=== PATIENT | female | born 1930 | race Caucasian/White ===

== ENCOUNTER → 2016-12-02 | Outpatient (CLI) | payer OTHER, BC ==
[~2016-12-02] MED LIST: APPLCAP PO; ASCA500 PO; ASPEC325 PO; ASPI81TA28 PO; B-CO-25 PO; B-CO1CAP17 PO; BLAC1CAP4 PO; CALC1TAB10 PO; CHOL1000 PO; CYAN5000 PO; IBAN150T PO; LEVE250T PO; LEVO25TA5 PO; MAGN400T6 PO; MISCCAP8 PO; MULT-188 PO; MULT-614 PO; MULTTAB66 PO; OMEG1CAP71 PO; POLYSOL4 OP; POTACAP PO; RXC5 PO; SACC250C11 PO
[2016-12-02 11:53] LABS: BASO % 0.6 %; BASO ABS # 0.04 K/uL (0-0.2); COMPLETE YES; HEMATOCRIT 41.4 % (37-47); IG% 0.1 %; LYMPH % 24.1 %; LYMPH ABS # 1.73 K/uL (1.2-3.4); MEAN CELL VOLUME 93.7 fL (80-100); MEAN CORPUSCULAR HEMOGLOBIN 31.7 pg (25-34); MEAN CORPUSCULAR HGB CONC 33.8 g/dl (32-36); MONO % 8.4 %; NEUT % 65.8 %; PLATELET COUNT 202 K/uL (130-400); RED BLOOD COUNT 4.42 M/uL (4.2-5.4); WHITE BLOOD COUNT 7.18 K/uL (4.8-10.8)
[2016-12-02 12:00] LABS: BLOOD UREA NITROGEN 12 mg/dl (7-18); BUN/CREATININE RATIO 18.6 (10-20); CALCIUM 9.3 mg/dl (8.5-10.1); CARBON DIOXIDE 34 mmol/L (21-32); CHLORIDE 104 mmol/L (98-107); CREATININE 0.65 mg/dl (0.60-1.20); GLUCOSE 81 mg/dl (70-99); SODIUM 141 mmol/L (136-145)
[2016-12-02 12:07] LABS: INR 0.9 (0.9-1.1); PROTHROMBIN TIME (PATIENT) 10.1 SECONDS (9.0-12.0)
== END | disposition home or self-care (01) ==
LOC: C.LAB 10:44
PROVIDERS: ATTEND Orthopaedic Surgery
DX: Z01.812 Encounter for preprocedural laboratory examination (principal); M16.11 Unilateral primary osteoarthritis, right hip

== ENCOUNTER 2016-12-11 07:24 | Inpatient (IN) | payer OTHER, BC ==
[2016-10-16 08:20] VITALS: BMI 27.0
[2016-10-16 08:40] VITALS: BMI 27.0
--- NOTE | 2016-10-16 09:08 | PAT Medication Instructions ---
Service Date Oct 16, 2016. Current Home Medication List Ascorbic Acid (Vitamin C), 1,000 MG PEG QAM Aspirin (Aspirin Ec), 81 MG PO QPM Calcium Carbonate-Cholecalcife (Calcium 1000 + D), 1 TAB PO QAM Cholecalciferol (Vitamin D3), 1 TAB PO QAM Cyanocobalamin (Vitamin B-12), 12 TAB PO QAM Fish Oil ([place]-3), 1 CAP PO QAM Ibandronate Sodium (Boniva), 150 MG PO MONTHLY Levetiracetam (Keppra), 250 MG PO QAM Levetiracetam (Keppra), 500 MG PO QPM Levothyroxine Sodium (Levothyroxine Sodium), 1 TAB PO QAM Magnesium Oxide (Mag-Ox), 400 MG PO QAM Multiple Vitamins W/ Minerals (Centrum Silver Ultra Wome), 1 TAB PO QAM Multiple Vitamins W/ Minerals (Ocuvite), 1 TAB PO QAM Phytonadione (Vitamin K), 1 TAB PO QAM Potassium Gluconate (K-99), 1 TAB PO QAM Saccharomyces Boulardii (Probiotic), 1 TAB PO QAM Vitamin B Cmplx/Vitc/Folic Ac (Nephrocaps), 1 CAP PO QAM Medication Instructions For Your Scheduled Surgery - Continue as directed: Ibandronate Sodium (Boniva), 150 MG PO MONTHLY - Hold the following medications 2 weeks prior to surgery: Fish Oil ([place]-3), 1 CAP PO QAM - Hold the following medications the morning of surgery: Calcium Carbonate-Cholecalcife (Calcium 1000 + D), 1 TAB PO QAM Ascorbic Acid (Vitamin C), 1,000 MG PO QAM Cholecalciferol (Vitamin D3), 1 TAB PO QAM Cyanocobalamin (Vitamin B-12), 12 TAB PO QAM Saccharomyces Boulardii (Probiotic), 1 TAB PO QAM Vitamin B Cmplx/Vitc/Folic Ac (Nephrocaps), 1 CAP PO QAM Magnesium Oxide (Mag-Ox), 400 MG PO QAM Multiple Vitamins W/ Minerals (Centrum Silver Ultra Wome), 1 TAB PO QAM Multiple Vitamins W/ Minerals (Ocuvite), 1 TAB PO QAM Phytonadione (Vitamin K), 1 TAB PO QAM Potassium Gluconate (K-99), 1 TAB PO QAM - Take the following medications the morning of surgery with a sip of water OTHERWISE NOTHING TO EAT OR DRINK AFTER MIDNIGHT: Levetiracetam (Keppra), 250 MG PO QAM Levothyroxine Sodium (Levothyroxine Sodium), 1 TAB PO QAM - Take the following medications as scheduled the night before surgery: Aspirin (Aspirin Ec), 81 MG PO QPM Levetiracetam (Keppra), 500 MG PO QPM If you have any questions please call us at [phone] or [phone] or [phone]
--- NOTE | 2016-10-16 09:22 | PAT Medication Instructions ---
Service Date Oct 16, 2016. Current Home Medication List Apple Cider Vinegar (Apple Cider Vinegar), 1 TAB PO QAM Ascorbic Acid (Vitamin C), 1,000 MG PO QAM Aspirin (Aspirin Ec), 81 MG PO QPM B-Complex W/ Folic Acid (Super B Complex Maxi), 1 TAB PO QAM Black Pepper-Turmeric (Turmeric Curcumin Complex 500-3 mg), 1 TAB PO QAM Calcium Carbonate-Cholecalcife (Calcium 1000 + D), 1 TAB PO QAM Cholecalciferol (Vitamin D3), 2,000 UNITS PO QAM Cyanocobalamin (Vitamin B-12), 12 TAB PO QAM Ibandronate Sodium (Boniva), 150 MG PO MONTHLY Levetiracetam (Keppra), 250 MG PO QAM Levetiracetam (Keppra), 500 MG PO QPM Levothyroxine Sodium (Levothyroxine Sodium), 1 TAB PO QAM Magnesium Oxide (Mag-Ox), 400 MG PO QAM Misc Natural Products (Tart Guthrie Advanced), 1 TAB PO QAM Multiple Vitamins W/ Minerals (Centrum Silver Ultra Wome), 1 TAB PO QAM Multiple Vitamins W/ Minerals (Ocuvite), 1 TAB PO QAM Multiple Vitamins W/ Minerals (I-Gabo), 1 TAB PO QAM [place] 3 Fatty Acids-Germfask 6 Fa ([place] 3-6-9 Complex), 1 TAB PO QAM Potassium Gluconate (K-99), 1 TAB PO QAM Saccharomyces Boulardii (Probiotic), 1 TAB PO QAM Vitamin B Cmplx/Vitc/Folic Ac (Nephrocaps), 1 CAP PO QAM Medication Instructions For Your Scheduled Surgery - Hold the following medications 2 weeks prior to surgery: Apple Cider Vinegar (Apple Cider Vinegar), 1 TAB PO QAM Black Pepper-Turmeric (Turmeric Curcumin Complex 500-3 mg), 1 TAB PO QAM [place] 3 Fatty Acids-Germfask 6 Fa ([place] 3-6-9 Complex), 1 TAB PO QAM Misc Natural Products (Tart Guthrie Advanced), 1 TAB PO QAM - Hold the following medications the morning of surgery: Ascorbic Acid (Vitamin C), 1,000 MG PO QAM Calcium Carbonate-Cholecalcife (Calcium 1000 + D), 1 TAB PO QAM Cholecalciferol (Vitamin D3), 2,000 UNITS PO QAM Cyanocobalamin (Vitamin B-12), 12 TAB PO QAM B-Complex W/ Folic Acid (Super B Complex Maxi), 1 TAB PO QAM Magnesium Oxide (Mag-Ox), 400 MG PO QAM Multiple Vitamins W/ Minerals (Centrum Silver Ultra Wome), 1 TAB PO QAM Multiple Vitamins W/ Minerals (Ocuvite), 1 TAB PO QAM Multiple Vitamins W/ Minerals (I-Gabo), 1 TAB PO QAM Potassium Gluconate (K-99), 1 TAB PO QAM Saccharomyces Boulardii (Probiotic), 1 TAB PO QAM Vitamin B Cmplx/Vitc/Folic Ac (Nephrocaps), 1 CAP PO QAM - Take the following medications the morning of surgery with a sip of water OTHERWISE NOTHING TO EAT OR DRINK AFTER MIDNIGHT: Levetiracetam (Keppra), 250 MG PO QAM Levothyroxine Sodium (Levothyroxine Sodium), 1 TAB PO QAM - Take the following medications as scheduled the night before surgery: Aspirin (Aspirin Ec), 81 MG PO QPM Levetiracetam (Keppra), 500 MG PO QPM If you have any questions please call us at [phone] or [phone] or [phone]
[2016-10-16 10:19] LABS: PROTHROMBIN TIME (PATIENT) 10.5 SECONDS (9.0-12.0)
--- NOTE | 2016-10-16 10:28 | DIAGNOSTIC IMAGING REPORT ---
CHEST PREADMISSION(PA/LAT) CLINICAL HISTORY: Preoperative evaluation. COMPARISON STUDY: No previous studies for comparison. FINDINGS: Lung volumes are normal. There is no pneumothorax or pleural effusion. There is no evidence of pulmonary edema. A few calcific densities projecting over the left upper lung could reflect calcified pleural plaques. These are benign. Cardiac size is normal. Mediastinal contours are normal. IMPRESSION: No acute cardiopulmonary findings. Electronically signed by: Endy Vogt M.D. 10/16/2016 10:27 AM Dictated Date/Time: 10/16/2016 10:26 AM
[2016-10-16 11:15] LABS: URINE APPEARANCE CLOUDY (CLEAR); URINE BILIRUBIN NEG (NEG); URINE COLOR DK YELLOW; URINE NITRITE POS (NEG); URINE SPECIFIC GRAVITY 1.017 (1.000-1.030); UROBILINOGEN NEG (NEG)
[2016-10-16 11:32] LABS: MANUAL MICROSCOPIC REQUIRED? NO; REVIEW REQ? NO
--- NOTE | 2016-11-05 09:12 | HISTORY & PHYSICAL EXAMINATION ---
DATE OF ADMISSION: 11/27/2016 CHIEF COMPLAINT: Primary osteoarthritis of the right hip. HISTORY OF PRESENT ILLNESS: Denise is a very pleasant 86-year-old female who has been dealing with chronic right hip pain. X-rays and radiographs were diagnostic for primary osteoarthritis of the right hip. After failing extensive conservative treatment, she elected to proceed with a right total hip arthroplasty. PAST MEDICAL HISTORY: Significant for breast cancer status post lumpectomy, unspecified seizure disorder, osteopenia, mild obesity and hypothyroidism. PAST SURGICAL HISTORY: Significant for breast lumpectomy, right total knee arthroplasty in 1994, left total knee arthroplasty in 1998, right wrist surgery for fracture. ALLERGIES: None. MEDICATIONS: Include Keppra 250 mg in the morning and 500 mg in the evening and Synthroid 25 mg daily. FAMILY HISTORY: Noncontributory. SOCIAL HISTORY: She is , lives by herself, has 2 children. REVIEW OF SYSTEMS: She complains of right hip pain. All other pertinent review of systems are negative. PHYSICAL EXAMINATION: GENERAL: She is awake, alert and oriented x3. She is in no apparent distress. She is very pleasant. HEAD, EYES, EARS, NOSE, AND THROAT: Pupils are equal, round and reactive to light. Extraocular motion intact. Oral mucosa is pink and moist. HEART: Regular rate per radial pulse. LUNGS: Mary symmetrically bilaterally with no audible breath sounds. ABDOMEN: Soft, nontender, nondistended. MUSCULOSKELETAL: On physical examination of her hip, she does walk with an antalgic gait. Her leg lengths are essentially equal. She has 90 degrees of flexion with very limited internal and external rotation with severe pain at end range of motion mostly with forced internal rotation of the hip. She is neurovascularly intact. X-rays of the pelvis show advanced osteoarthritis of both hips with the right being worse than the left. There is a very slight coxa vara. There is joint space narrowing and osteophyte formation. IMPRESSION: Advanced osteoarthritis of the right hip. PLAN: Will proceed with a Biomet anterior right total hip arthroplasty. Postoperatively, she will be started on aspirin 325 mg twice a day for DVT prophylaxis and kept for postoperative medical management.
[2016-12-08 13:03] VITALS: BMI 27.0
--- NOTE | 2016-12-10 18:47 | HISTORY & PHYSICAL EXAMINATION ---
DATE OF ADMISSION: 12/11/2016 HISTORY AND PHYSICAL ADMISSION NOTE CHIEF COMPLAINT: Primary osteoarthritis of the right hip. HISTORY OF PRESENT ILLNESS: Denise is a pleasant 86-year-old female who has been dealing with increasing chronic right hip pain. X-rays and clinical examination were diagnostic for primary osteoarthritis of the right hip. After failing years of conservative treatment, she elected to proceed with a right total hip arthroplasty. PAST MEDICAL HISTORY: Significant for breast cancer status post lumpectomy, osteoarthritis, seizure disorder, osteopenia, mild obesity and hypothyroidism. PAST SURGICAL HISTORY: Significant for a breast lumpectomy, total knee arthroplasty in 1994, left total knee arthroplasty in 1998 and right wrist surgery for fracture. ALLERGIES: None. MEDICATIONS: Include Keppra 250 mg in the morning and 500 mg in the evening and Synthroid 25 mcg daily. FAMILY HISTORY: Noncontributory. SOCIAL HISTORY: She is , lives by herself and has 2 children. REVIEW OF SYSTEMS: She complains of right hip pain. All other pertinent review of systems is negative. PHYSICAL EXAMINATION: GENERAL: She is awake, alert and oriented x3. She is in no apparent distress. She is very pleasant. HEENT: Pupils are equal, round and reactive to light. Extraocular motion intact. Oral mucosa is pink and moist. HEART: Regular rate per radial pulse. LUNGS: Mary symmetrically bilaterally with no audible breath sounds. ABDOMEN: Soft, nontender, nondistended. MUSCULOSKELETAL: On physical examination of her right hip, her leg lengths are essentially equal. She can flex to about 90 degrees, but has very limited internal and external rotation with severe pain in range of motion. She has a lot of pain in her groin. IMAGING DATA: X-rays from the office do show advanced osteoarthritis of the right hip. There is a slight coxa vara. She has a complete loss of joint space and osteophyte formation. IMPRESSION: Advanced osteoarthritis of the right hip. PLAN: Will proceed with an anterior right total hip arthroplasty using a Biomet taper lock stem. Postoperatively, she will be started on aspirin for DVT prophylaxis and kept in the hospital for postoperative medical management. KATHARINE
[~2016-12-11] VITALS: Ht 165.1 cm; Wt 74.5 kg
[2016-12-11] VITALS (9 sets, daily range): BP systolic 109–162; BP diastolic 61–73; PULSE 55–69; TEMP 34.7–36.8; O2SAT 95–100; Ht 165.1 cm; Wt 74.5 kg
[~2016-12-11 07:24] MED LIST changes: +ACETAMINOPHEN 500 MG TAB PO SCH; -ASPEC325 PO; +BUPIVACAINE 0.5 % 5 MG/1 ML PF 10ML VIAL ONE; +CEFAZOLIN 2000 MG/60 ML D5W 60 ML IV SCH; +FAMOTIDINE 20 MG TAB PO SCH; +GABAPENTIN 300 MG CAP PO SCH; +LACTATED RINGER'S 1000ML 1,000 ML IV SCH; +LACTATED RINGER'S 1000ML 500 ML IV ONE; +LACTATED RINGER'S 1000ML IV SCH; -POLYSOL4 OP; +ROPIVACAINE 5MG/ML 30 ML 150 MG, BUPIVACAINE/EPINEPHR 0.5% MPF 30 ML, KETOROLAC TROMETH... INFIL SCH; -RXC5 PO
--- NOTE | 2016-12-11 07:43 | History & Physical Bridge Note ---
H&P Re-Evaluation Bridge Note: I have examined the patient, reviewed the History & Physical and in the interval since the performance of the History & Physical I have noted the following changes of clinical significance: No changes noted
[2016-12-11] MEDS ORDERED: POLYSOL4 OP (08:21)
[2016-12-11] MEDS ORDERED: EpHEDrine SULFATE INJ 50 MG/ML AMP IV PRN (09:00)
[2016-12-11] MEDS ORDERED: ONDANSETRON INJ 2 MG/ML 2 ML VIAL IV PRN ×2 (09:00→12:45)
[2016-12-11] MEDS ORDERED: FENTANYL CITRATE INJ 50 MCG/1 ML 2 ML VIAL IV PRN (09:00)
[2016-12-11] MEDS ORDERED: ATROPINE SULFATE 0.1 MG/ML 5ML SYR IV PRN (09:00)
[2016-12-11] MEDS ORDERED: BACITRACIN 50000 UNIT VIAL ONE (09:09)
[2016-12-11] MEDS ORDERED: ORTHO JOINT ANESTHETIC ONE (09:09)
[2016-12-11] MEDS: TRANEXAMIC ACID INJ 1,000 MG in SODIUM CHLORIDE 0.9% 100ML 100 ML IV SCH ×2 (10:10→14:31)
[2016-12-11] MEDS ORDERED: MIDAZOLAM HCL 1 MG/ML 2ML VIAL ONE ×2 (10:34)
[2016-12-11] MEDS ORDERED: FENTANYL CITRATE INJ 50 MCG/1 ML 2 ML VIAL ONE (10:34)
[2016-12-11] MEDS ORDERED: LIDOCAINE HCL 2% 2 ML VIAL (20MG/ML) ONE (12:30)
[2016-12-11] MEDS ORDERED: PHENYLEPHRINE 100MCG/ML 5ML SYR ONE (12:30)
[2016-12-11] MEDS ORDERED: PROPOFOL IV EMULSION 10 MG/ML 20 ML VIAL IV ONE (12:30)
[2016-12-11] MEDS ORDERED: EpHEDrine SULFATE 50MG/5ML SYR ONE (12:30)
--- NOTE | 2016-12-11 12:30 | DIAGNOSTIC IMAGING REPORT ---
INTRAOPERATIVE RIGHT HIP 2 VIEWS CLINICAL HISTORY: Right hip arthroplasty COMPARISON STUDY: No previous studies for comparison. FINDINGS: 36 seconds of fluoroscopic time was utilized. 2 intraoperative fluoroscopic spot images are provided for interpretation. These demonstrate a total right hip arthroplasty. IMPRESSION: Intraoperative radiographs demonstrating a total right hip arthroplasty. Electronically signed by: Hadley Hamilton M.D. 12/11/2016 12:28 PM Dictated Date/Time: 12/11/2016 12:27 PM
--- NOTE | 2016-12-11 12:36 | [facility] Post Operative Brief Note ---
Immediate Operative Summary Operative Date Dec 11, 2016. Pre-Operative Diagnosis Advanced osteoarthritis of the right hip Post-Operative Diagnosis Same as preoperative diagnosis Procedure(s) Performed Right total hip arthroplasty, uncemented, direct anterior approach Surgeon Dr. Nunes Data Support Analyst Surgeon(s) Micah Thompson PA-C Estimated Blood Loss 250 ml Findings as above Specimens A. Right femoral head Disposition Recovery Room / PACU
[2016-12-11] MEDS ORDERED: MAGNESIUM HYDROXIDE SUSP 30 ML UDC PO PRN (12:45)
[2016-12-11] MEDS ORDERED: SOD PHOSPHATE/SOD BIPHOSPHATE ENEMA 132 ML BTL PR PRN (12:45)
[2016-12-11] MEDS ORDERED: MoRPHine SULFATE 2 MG/ML CARP IV PRN (12:45)
[2016-12-11] MEDS ORDERED: METOCLOPRAMIDE HCL INJ 5 MG/ML 2 ML VIAL IV PRN (12:45)
[2016-12-11] MEDS ORDERED: BISACODYL 10 MG SUPP PR PRN (12:45)
[2016-12-11] MEDS ORDERED: OXYCODONE HCL IR 5 MG TAB (IMMEDIATE RELEASE) PO PRN (12:45)
[2016-12-11] MEDS ORDERED: SILVER SULFADIAZINE 1% CR 50 GM JAR EXT PRN (12:45)
--- NOTE | 2016-12-11 13:49 | Anesthesiology Progress Note ---
Anesthesia Post Op Note Date & Time Dec 11, 2016 at 13:49 Vital Signs Pain Intensity: 0 Vital Signs Past 12 Hours Date Time Temp Pulse Resp B/P (MAP) Pulse Ox O2 Delivery O2 Flow Rate FiO2 12/11/16 13:25 36.3 59 16 121/57 100 Nasal Cannula 2 12/11/16 13:15 55 16 124/56 100 Nasal Cannula 2 12/11/16 13:05 58 16 128/52 100 Oxymask 10 12/11/16 12:55 36.3 61 16 124/82 100 Oxymask 10 12/11/16 08:32 36.8 69 18 162/67 99 Room Air Notes Mental Status: alert / awake / arousable, participated in evaluation Pt Amnestic to Procedure: Yes Nausea / Vomiting: adequately controlled Pain: adequately controlled Airway Patency, RR, SpO2: stable & adequate BP & HR: stable & adequate Hydration State: stable & adequate Neuraxial Anesthesia: was administered, sensory block is resolving Anesthetic Complications: no major complications apparent
--- NOTE | 2016-12-11 14:22 | [facility] Post Operative Brief Note ---
Immediate Operative Summary Operative Date Dec 11, 2016. Pre-Operative Diagnosis Advanced osteoarthritis of the right hip Post-Operative Diagnosis Same as preoperative diagnosis Procedure(s) Performed Right total hip arthroplasty, uncemented, direct anterior approach Surgeon Dr. Nunes Commercial Account Executive Surgeon(s) Micah Thompson PA-C Estimated Blood Loss 250 ml Findings as above Specimens A. Right femoral head Complication(s) None Disposition Recovery Room / PACU
[2016-12-11] MEDS: SODIUM CHLORIDE 0.9% 1000ML 1,000 ML IV SCH (14:32)
--- NOTE | 2016-12-11 14:56 | OPERATIVE REPORT ---
DATE OF OPERATION: 12/11/2016 PREOPERATIVE DIAGNOSIS: Primary osteoarthritis of the right hip. POSTOPERATIVE DIAGNOSIS: Same. PROCEDURE: Right total hip arthroplasty. SURGEON: Dr. Luis Nunes. IMPORT COORDINATOR: Koby Thompson PA-C, whose assistance was necessary for retraction and closure. ANESTHESIA: Spinal. COMPLICATIONS: None. CONDITION: Stable to PACU. IMPLANTS USED: I used a Biomet Taperloc total hip arthroplasty system with a size 16 high offset pressfit Taperloc stem, a size 36 ceramic head with a -6 neck and a 50 mm G7 cup with a single 25 mm screw and a 36 mm neutral E-poly liner. INDICATIONS: Denise is a pleasant 86-year-old female who presented to my office with chronic right groin and hip pain. X-rays and clinical examination were diagnostic for primary osteoarthritis of the right hip. After failing conservative treatment, she elected to undergo a right total hip arthroplasty. OPERATION AND FINDINGS: On 12/11/2016 she arrived at [facility] for the above procedure. She was seen in the preoperative holding area and the operative extremity was identified and signed. She was given a preoperative antibiotic and a spinal anesthetic. She was taken back to the operating room, laid on the table in supine position and put under basic sedation. The right leg was brought out to Purist leg positioner and the right hip was prepped and draped in sterile fashion. Time-out was done and the patient and operative extremity was properly identified. An anterior approach was used. Dissection was taken down through the fascia and the tensor was retracted laterally and the rectus was retracted medially. The circumflex vessels were then ligated and the capsule was exposed. The capsule was then incised and tagged for later repair. The femoral neck was then resected and the acetabulum was exposed. Time was spent doing a complete circumferential labral release. Sequential reaming of the acetabulum up to a size 49 reamer was done. The reaming was done under fluoroscopy for appropriate version. The 50 mm G7 cup was then impacted into place. A single 25 mm screw was placed. A 36 mm neutral E-poly liner was then snapped into place. The proximal femur was then exposed. Sequential broaching up to a size 16 broach was used. A high offset neck and a -6 36 mm head was then trialed. The hip was reduced. I was happy with the alignment and the size of the complements. The hip was then dislocated and the trials were removed. The final size 16 high offset Taperloc stem was then impacted into place. A 36 mm ceramic head with -6 neck was then placed on top of the femoral stem and the hip was reduced. Final fluoroscopic images showed anatomic alignment of the hip. The surrounding soft tissues were injected with 100 mL of an orthopedic pain control cocktail. The surrounding soft tissues were then irrigated with 3 liters of normal saline solution with bacitracin. The capsule was then closed with #1 Vicryl suture. A drain was placed. Fascia was closed with #1 PDS suture. Skin was closed with 2-0 Vicryl, 3-0 V-Loc suture and joce. She was then placed in a soft compressive dressing and taken to the postanesthesia care unit in stable condition. She tolerated the procedure well. I attest to the content of the Intraoperative Record and any orders documented therein. Any exception s are noted below.
[2016-12-11] MEDS: ACETAMINOPHEN IV 1,000 MG in EMPTY BAG 0 ML IV SCH ×2 (15:05→22:28)
--- NOTE | 2016-12-11 16:02 | DIAGNOSTIC IMAGING REPORT ---
R PELVIS/UNILATERAL HIP 1 VIEW CLINICAL HISTORY: IN PACU - A/P PELVIS and LATERAL HIP INCLUDING ALL OF IMPLANT COMPARISON: None. DISCUSSION: Total right hip prosthetic in good position. Good contact between prosthetic and underlying bone. Surgical drains are present. There is no evidence for soft tissue swelling. IMPRESSION: Anatomic alignment status post total right hip replacement The above report was generated using voice recognition software. It may contain grammatical, syntax or spelling errors. Electronically signed by: Usman Argueta M.D. 12/11/2016 4:00 PM Dictated Date/Time: 12/11/2016 4:00 PM
[2016-12-11] MEDS: KETOROLAC TROMETHAMINE 15 MG/ML VIAL IV. SCH ×2 (16:19→22:18)
[2016-12-11] MEDS: CEFAZOLIN IV 1,000 MG in DEXTROSE 5% 50ML 50 ML IV SCH (18:18)
[2016-12-11] MEDS: LEVETIRACETAM 500 MG TAB PO SCH (19:20)
[2016-12-11] MEDS: DOCUSATE SODIUM 100 MG CAP PO SCH (21:14)
[2016-12-11] MEDS: ARTIFICIAL TEARS OP SOLN OP SCH ×2 (21:14)
[2016-12-11] MEDS: ASPIRIN 325 MG ECTAB PO SCH (21:15)
[2016-12-11] MEDS: SENNA 8.6 MG TAB PO SCH (21:16)
[2016-12-12] MEDS: CEFAZOLIN IV 1,000 MG in DEXTROSE 5% 50ML 50 ML IV SCH (02:16)
[2016-12-12 03:41] VITALS: BP 109/64; PULSE 66; TEMP 36.6; O2SAT 96
[2016-12-12] MEDS: KETOROLAC TROMETHAMINE 15 MG/ML VIAL IV. SCH ×4 (03:42→21:41)
[2016-12-12] MEDS: LEVOTHYROXINE 25 MCG TAB PO SCH (06:05)
[2016-12-12] MEDS: ACETAMINOPHEN IV 1,000 MG in EMPTY BAG 0 ML IV SCH (06:06)
[2016-12-12 06:19] LABS: BASO % 0.2 %; BASO ABS # 0.02 K/uL (0-0.2); COMPLETE YES; EOS % 0.1 %; HEMATOCRIT 34.2 % (37-47); IG% 0.1 %; LYMPH % 13.3 %; LYMPH ABS # 1.32 K/uL (1.2-3.4); MEAN CELL VOLUME 91.2 fL (80-100); MEAN CORPUSCULAR HEMOGLOBIN 31.2 pg (25-34); MEAN CORPUSCULAR HGB CONC 34.2 g/dl (32-36); MEAN PLATELET VOLUME 9.9 fL (7.4-10.4); MONO % 7.7 %; NEUT % 78.6 %; PLATELET COUNT 137 K/uL (130-400); RED BLOOD COUNT 3.75 M/uL (4.2-5.4); WHITE BLOOD COUNT 9.94 K/uL (4.8-10.8)
[2016-12-12 06:47] LABS: CALCIUM 8.1 mg/dl (8.5-10.1); CREATININE 0.46 mg/dl (0.60-1.20); POTASSIUM 3.6 mmol/L (3.5-5.1)
[2016-12-12 08:05] VITALS: BP 106/61; PULSE 56; TEMP 37; O2SAT 95
[2016-12-12] MEDS: LEVETIRACETAM 250 MG TAB PO SCH ×2 (08:07→20:13)
[2016-12-12] MEDS: SODIUM CHLORIDE 0.9% 1000ML 1,000 ML IV SCH ×2 (08:30)
[2016-12-12] MEDS: CYANOCOBALAMIN 2,500 MCG SUBL TAB PO SCH (08:31)
[2016-12-12] MEDS: SACCHAROMYCES BOUL (FLORASTOR) 250 MG CAP PO SCH (08:31)
[2016-12-12] MEDS: ASCORBIC ACID 500 MG TAB PO SCH (08:31)
[2016-12-12] MEDS: MULTIVITAMIN TAB PO SCH (08:31)
[2016-12-12] MEDS: MAGNESIUM OXIDE 400 MG TAB PO SCH (08:31)
[2016-12-12] MEDS: NEPHROCAPS PO SCH (08:31)
[2016-12-12] MEDS: CALCIUM 600MG + VIT D 400 IU TAB PO SCH (08:31)
[2016-12-12] MEDS: DOCUSATE SODIUM 100 MG CAP PO SCH ×2 (08:31→20:17)
[2016-12-12] MEDS: ASPIRIN 325 MG ECTAB PO SCH ×2 (08:32→20:17)
[2016-12-12] MEDS: CHOLECALCIFEROL 1000 INTER.UNIT TAB PO SCH (08:32)
[2016-12-12] MEDS: PANTOprazole SOD 40 MG TAB PO SCH (08:32)
[2016-12-12] MEDS ORDERED: LEVETIRACETAM 250 MG TAB PO SCH (09:00)
[2016-12-12] MEDS ORDERED: [UNRECOGNIZED DRUG - OTHER] PO SCH (09:00)
--- NOTE | 2016-12-12 09:06 | PROGRESS NOTE ---
DATE: 12/12/2016 CHIEF COMPLAINT: Status post right total hip arthroplasty, postop day #1. PROGRESS: Denise was seen and examined at bedside today. Overall, she is doing extremely well. She said she really has no pain in her hip. She has been up and ambulating to the bathroom. She has no other complaints. PHYSICAL EXAMINATION: RIGHT HIP: The dressing is clean and dry and the drain is to suction. She can actively extend her knee. She has active dorsiflexion and plantarflexion of her right ankle. Sensation of her quad intact. LABORATORY DATA: She has an H&H today of 11.7 and 34.2. Her glucose is 102. She is voiding on her own and her vital signs are all stable. X-RAYS: Radiographs postoperatively of the right hip show the prosthesis to be in an anatomical alignment without any evidence of fracture, dislocation or loosening. IMPRESSION: Status post right total hip arthroplasty, postop day #1. PLAN: At this point, she is doing as well as expected. She will be seen by therapy today for ambulation. She is on aspirin 325 mg twice a day for DVT prophylaxis. Tomorrow morning, the nursing staff can change the dressing and pull the drain and we are awaiting discharge to [facility].
[2016-12-12 11:13] VITALS: BP 134/67; PULSE 57; TEMP 36.6; O2SAT 98
[2016-12-12] MEDS ORDERED: INFLUENZA ADMINISTRATION CHARGE ONE (13:15)
[2016-12-12] MEDS ORDERED: INFLUENZA VACCINE HIGH DOSE 65+ 0.5 ML SYR IM. ONE (13:15)
[2016-12-12 15:30] VITALS: BP 144/74; PULSE 60; TEMP 36.7; O2SAT 94
[2016-12-12] MEDS: LEVETIRACETAM 500 MG TAB PO SCH (20:14)
[2016-12-12] MEDS: ARTIFICIAL TEARS OP SOLN OP SCH ×2 (20:17)
[2016-12-12] MEDS: SENNA 8.6 MG TAB PO SCH (20:29)
[2016-12-12] MEDS: ACETAMINOPHEN 500 MG TAB PO SCH (21:40)
[2016-12-12 23:07] VITALS: BP 108/62; PULSE 67; TEMP 37.2; O2SAT 96
[2016-12-13] MEDS: KETOROLAC TROMETHAMINE 15 MG/ML VIAL IV. SCH ×2 (03:46→10:31)
[2016-12-13] MEDS: ACETAMINOPHEN 500 MG TAB PO SCH ×2 (06:02→14:04)
[2016-12-13] MEDS: LEVOTHYROXINE 25 MCG TAB PO SCH (06:02)
[2016-12-13 06:18] VITALS: BP 113/68; PULSE 65; TEMP 36.6; O2SAT 96
[2016-12-13] MEDS: ASCORBIC ACID 500 MG TAB PO SCH (07:40)
[2016-12-13] MEDS: NEPHROCAPS PO SCH (07:40)
[2016-12-13] MEDS: CYANOCOBALAMIN 2,500 MCG SUBL TAB PO SCH (07:40)
[2016-12-13] MEDS: MULTIVITAMIN TAB PO SCH (07:40)
[2016-12-13] MEDS: PANTOprazole SOD 40 MG TAB PO SCH (07:40)
[2016-12-13] MEDS: SACCHAROMYCES BOUL (FLORASTOR) 250 MG CAP PO SCH (07:41)
[2016-12-13] MEDS: MAGNESIUM OXIDE 400 MG TAB PO SCH (07:43)
[2016-12-13] MEDS: CHOLECALCIFEROL 1000 INTER.UNIT TAB PO SCH (07:43)
[2016-12-13] MEDS: CALCIUM 600MG + VIT D 400 IU TAB PO SCH (07:43)
[2016-12-13] MEDS: LEVETIRACETAM 250 MG TAB PO SCH (07:43)
[2016-12-13] MEDS: ASPIRIN 325 MG ECTAB PO SCH (08:42)
[2016-12-13] MEDS: DOCUSATE SODIUM 100 MG CAP PO SCH (08:42)
[2016-12-13] MEDS ORDERED: RXC5 PO (09:05)
[2016-12-13] MEDS ORDERED: ASPEC325 PO (09:05)
--- NOTE | 2016-12-13 09:06 | Discharge Instructions ---
Discharge Instructions Date of Service Dec 13, 2016. Admission Reason for Admission: Right Hip Degenerative Joint Disease Discharge Discharge Diagnosis / Problem: Right Total Hip Discharge Goals Goal(s): Decrease discomfort, Improve function Activity Recommendations Activity Limitations: as noted below . Instructions / Follow-Up Instructions / Follow-Up Activity and Therapy Recommendations: * If you are using [facility] then Physical Therapy will be provided until they feel you are ready to start Outpatient Physical Therapy. If you are not using a Home Health agency then Outpatient Physical Therapy should start about 3-5 days from your day of surgery. Therapy will last about 3-6 weeks * You were shown a series of exercises in the hospital. Do these exercises three times each day including the exercises you were shown in physical therapy. * Get up and walk several times each day.~ For the first four weeks, try not to stand or walk for more than one hour at a time. If you do stand or walk for more than one hour, you will not hurt anything, but your leg will likely swell.~ ~ * As you feel comfortable, you may change from the walker or crutches to a cane and~then to independent walking. Medications: * Narcotic You will likely be sent home from the hospital with a prescription for the narcotic pain medication that worked best throughout your stay. * Aspirin Most patients will be required to take Aspirin 325mg twice a day for 6 weeks after surgery. This is obtained [id number] and a prescription is not necessary. * Other medications may be prescribed for specific circumstances. If you have any questions, please call the office at . * Resume previous home medications unless otherwise instructed TEDs/Elastic Stockings: The white elastic stockings help limit swelling and prevent blood clots from forming in your legs. The more you wear them, the more they work. Wear them for six weeks. Showering: You may shower 5 days from the day of surgery. Let the soapy shower water run over the joce. Do not scrub or soak the the incision. Things To Watch For: * Drainage from the incision site that occurs more than one week after your surgery. * Increased redness at the incision site. * Fever above 102 degrees Fahrenheit. * Unusual chest pain or shortness of breath. * Call [facility] at with any of the above problems Follow-Up Visit: Follow-up with Dr. Nunes 2-3 weeks after your day of surgery. An appointment was probably scheduled when you signed-up for surgery in the office. If you have any questions call Office Instructions: More detailed instructions as well as Frequently Asked Questions were provided in a folder by our office when you signed-up for surgery. Please review these instructions when you get home. If you have any further questions or concerns, please feel free to call the office at [phone] Current Hospital Diet Patient's current hospital diet: Regular Diet Discharge Diet Recommended Diet: Regular Diet Procedures Procedures Performed: Right total hip arthroplasty, uncemented, direct anterior approach Pending Studies Studies pending at discharge: no Medical Emergencies . Who to Call and When: Medical Emergencies: If at any time you feel your situation is an emergency, please call 911 immediately. . Non-Emergent Contact Non-Emergency issues call your: Surgeon Call Non-Emergent contact if: wound has increased drainage, wound has increased redness . "Provider Documentation" section prepared by Luis Nunes. . VTE Core Measure Inpt VTE Proph given/why not?: Other Anticoagulation (Aspirin 325 twice a day for 6 weeks)
--- NOTE | 2016-12-13 09:32 | PROGRESS NOTE ---
DATE: 12/13/2016 CHIEF COMPLAINT: Status post right total hip arthroplasty, postop day #2. PROGRESS: Denise was seen and examined at bedside today. Overall, she is doing very well. She has very little pain in the right hip. She is ambulating well with physical therapy and has no complaints. PHYSICAL EXAMINATION: RIGHT HIP: The dressing has been changed and the drain has been pulled. She has active extension at the knee. Active dorsiflexion and plantarflexion of the right ankle. Sensation is intact throughout and her leg lengths are essentially equal. IMPRESSION: Status post right total hip arthroplasty, postop day #2. PLAN: At this point, she is doing very well and happy with her progress. She is working well with physical therapy. She is on aspirin 325 mg twice a day. She lives alone and we are waiting discharge to [facility] possibly later today.
[2016-12-13 11:28] VITALS: BP 113/68; PULSE 65; TEMP 36.6; O2SAT 96
--- NOTE | 2016-12-13 12:26 | DISCHARGE SUMMARY ---
DISCHARGE DIAGNOSIS: Primary osteoarthritis of the right hip. PROCEDURE: Right total hip arthroplasty done on 12/11/[address] Luis Nunes. DISCHARGE INSTRUCTIONS: 1. Aspirin 325 mg twice a day for DVT prophylaxis. 2. Oxycodone 5-10 mg every 4 hours as needed for pain. 3. Keppra 250 mg in the morning. 4. Keppra 500 mg in the evening. 5. Synthroid 25 mcg daily. 6. Continue all over the counter vitamins and supplements. 7. Follow up with Dr. Nunes in 2 weeks. 8. Call the office of Dr. Nunes with any questions or concerns. HOSPITAL COURSE: Denise is an 86-year-old female who presented to my office with complaints of chronic right hip pain. X-rays and clinical examination were diagnostic for primary osteoarthritis of the right hip. After failing extensive conservative treatment, she elected to undergo a right total hip arthroplasty. On 12/11/2016, she arrived at [facility] and underwent a right hip replacement without complications. She had a spinal anesthetic. Postoperatively, she was started on aspirin 325 mg twice a day and discharged to general orthopedic floor. Overall, her hospital course was uneventful. On postop day #1, her H&H was stable at 11.7 and 34.2. She was able to ambulate well with physical therapy and her pain was well controlled. On postop day #2, she continued to do well. The dressing was changed, the drain was pulled and she worked well with physical therapy. She was set up for discharge to [facility] with the above instructions.
[2016-12-13 15:15] VITALS: BP 108/66; PULSE 62; TEMP 36.5; O2SAT 95
== END 2016-12-13 15:55 | DRG 470 ==
LOC: C.ACU 07:24 → C.3E 09:00 → ENRESERV 13:27
PROVIDERS: ADMIT Orthopaedic Surgery; ATTEND Orthopaedic Surgery
PROC: 0SR904A Replacement of Right Hip Joint with Ceramic on Polyethylene Synthetic Substitute, Uncemented, Open Approach (ICD-10-PCS; principal; 2016-12-11 10:10)
DX: M16.11 Unilateral primary osteoarthritis, right hip (principal); G40.909 Epilepsy, unspecified, not intractable, without status epilepticus; E03.9 Hypothyroidism, unspecified; Z85.3 Personal history of malignant neoplasm of breast; Z96.653 Presence of artificial knee joint, bilateral; Z79.82 Long term (current) use of aspirin; Z79.899 Other long term (current) drug therapy

== ENCOUNTER → 2017-02-02 | Outpatient (CLI) | payer OTHER, BC ==
[~2017-02-02] MED LIST changes: -ACETAMINOPHEN 500 MG TAB PO SCH; -APPLCAP PO; -BLAC1CAP4 PO; -BUPIVACAINE 0.5 % 5 MG/1 ML PF 10ML VIAL ONE; -CEFAZOLIN 2000 MG/60 ML D5W 60 ML IV SCH; -FAMOTIDINE 20 MG TAB PO SCH; -GABAPENTIN 300 MG CAP PO SCH; -LACTATED RINGER'S 1000ML 1,000 ML IV SCH; -LACTATED RINGER'S 1000ML 500 ML IV ONE; -LACTATED RINGER'S 1000ML IV SCH; -MISCCAP8 PO; -OMEG1CAP71 PO; +POLYSOL4 OP; -ROPIVACAINE 5MG/ML 30 ML 150 MG, BUPIVACAINE/EPINEPHR 0.5% MPF 30 ML, KETOROLAC TROMETH... INFIL SCH
[2017-02-02 13:14] LABS: BASO % 0.6 %; BASO ABS # 0.04 K/uL (0-0.2); COMPLETE YES; IG% 0.1 %; LYMPH % 31.3 %; LYMPH ABS # 2.13 K/uL (1.2-3.4); MEAN CELL VOLUME 91.9 fL (80-100); MEAN CORPUSCULAR HEMOGLOBIN 29.5 pg (25-34); MEAN CORPUSCULAR HGB CONC 32.1 g/dl (32-36); MEAN PLATELET VOLUME 10.2 fL (7.4-10.4); MONO % 7.2 %; NEUT % 59.8 %; PLATELET COUNT 218 K/uL (130-400); RED BLOOD COUNT 4.57 M/uL (4.2-5.4)
[2017-02-02 13:20] LABS: PROTHROMBIN TIME (PATIENT) 10.2 SECONDS (9.0-12.0)
[2017-02-02 13:27] LABS: URINE APPEARANCE CLEAR (CLEAR); URINE BILIRUBIN NEG (NEG); URINE COLOR DK YELLOW; URINE NITRITE NEG (NEG); URINE PH 7.5 (4.5-7.5); URINE SPECIFIC GRAVITY 1.014 (1.000-1.030); UROBILINOGEN NEG (NEG)
[2017-02-02 13:33] LABS: BLOOD UREA NITROGEN 12 mg/dl (7-18); BUN/CREATININE RATIO 17.5 (10-20); CALCIUM 9.1 mg/dl (8.5-10.1); CARBON DIOXIDE 33 mmol/L (21-32); CHLORIDE 103 mmol/L (98-107); CREATININE 0.69 mg/dl (0.60-1.20); GLUCOSE 78 mg/dl (70-99); POTASSIUM 4.3 mmol/L (3.5-5.1); SODIUM 141 mmol/L (136-145)
[2017-02-02 13:33] LABS: MANUAL MICROSCOPIC REQUIRED? NO; REVIEW REQ? NO
== END | disposition home or self-care (01) ==
LOC: C.LABBC 11:10
PROVIDERS: ATTEND Orthopaedic Surgery
DX: M25.551 Pain in right hip (principal); Z01.812 Encounter for preprocedural laboratory examination

== ENCOUNTER 2017-02-19 05:00 | Inpatient (IN) | payer OTHER, BC ==
[2017-01-26 16:34] VITALS: BMI 27.0
--- NOTE | 2017-02-18 17:45 | HISTORY & PHYSICAL EXAMINATION ---
DATE OF ADMISSION: 02/19/2017 CHIEF COMPLAINT: Primary osteoarthritis of the left hip. HISTORY OF PRESENT ILLNESS: Denise is a pleasant 86-year-old female who I just did a right total hip arthroplasty on about 10 weeks ago. She has done very well with that, but unfortunately she is having a lot of left hip pain. X-rays and clinical examination were diagnostic for primary osteoarthritis of the left hip. After failing years of conservative treatment, she elected to proceed with a left total hip arthroplasty. PAST MEDICAL HISTORY: Breast cancer status post lumpectomy, osteoarthritis, seizure disorder, osteopenia, mild obesity and hypothyroidism. PAST SURGICAL HISTORY: Significant for breast lumpectomy, total knee arthroplasty in 1994, left total knee arthroplasty in 1998 and a right wrist surgery for fracture and a right total hip arthroplasty in November 2016. ALLERGIES: None. MEDICATIONS: Keppra 250 mg in the morning and 500 mg in the evening and Synthroid 25 mcg daily. FAMILY HISTORY: Noncontributory. SOCIAL HISTORY: She is , lives by herself, has 2 kids. REVIEW OF SYSTEMS: She complains of left hip pain. All other pertinent review of systems are negative. PHYSICAL EXAMINATION: GENERAL: She is awake, alert, oriented x3. She is in no apparent distress. She is very pleasant. HEENT: Pupils are equal, round and reactive to light. Extraocular motion intact. Oral mucosa is pink and moist. HEART: Regular rate per radial pulse. LUNGS: Mary symmetrically bilaterally with no audible breath sounds. ABDOMEN: Soft, nontender, nondistended. MUSCULOSKELETAL: On physical examination of her left hip, her leg lengths are essentially equal. She can flex to 90 degrees but has very limited internal and external rotation with severe pain in end range of motion. She has a lot of pain in her groin. X-rays of the hip and pelvis do show advanced osteoarthritis of the left hip. There is a well-placed right total hip arthroplasty. IMPRESSION: Advanced osteoarthritis of the left hip. PLAN: Will proceed with an anterior left total hip arthroplasty using a Biomet Taperloc stem. Postoperatively, she will be started on aspirin for DVT prophylaxis and kept in the hospital, likely for 2 midnights for postoperative medical management.
[~2017-02-19] VITALS: Ht 165.1 cm; Wt 74.5 kg
[2017-02-19] VITALS (9 sets, daily range): BP systolic 101–159; BP diastolic 53–68; PULSE 52–71; TEMP 36.2–36.7; O2SAT 52–100; Ht 165.1 cm; Wt 74.5 kg
[2017-02-19] MEDS ORDERED: GABAPENTIN 300 MG CAP PO SCH (06:00)
[2017-02-19] MEDS ORDERED: LACTATED RINGER'S 1000ML 1,000 ML IV SCH (06:00)
[2017-02-19] MEDS ORDERED: CEFAZOLIN 2000MG IV PUSH 10 ML IV SCH (06:00)
[2017-02-19] MEDS ORDERED: LACTATED RINGER'S 1000ML IV SCH (06:00)
[2017-02-19] MEDS ORDERED: ROPIVACAINE 5MG/ML 30 ML 150 MG, BUPIVACAINE 0.5% MPF INJ 30 ML, EpINEphrine HCL INJ 0.... INFIL SCH ×8 (06:00)
[2017-02-19] MEDS ORDERED: ACETAMINOPHEN 500 MG TAB PO SCH (06:00)
[2017-02-19] MEDS ORDERED: FAMOTIDINE 20 MG TAB PO SCH (06:00)
[2017-02-19] MEDS ORDERED: BUPIVACAINE 0.5 % 5 MG/1 ML PF 10ML VIAL ONE (06:37)
[2017-02-19] MEDS ORDERED: MIDAZOLAM HCL 1 MG/ML 2ML VIAL ONE ×2 (06:38→07:40)
[2017-02-19] MEDS ORDERED: LIDOCAINE HCL 2% 2 ML VIAL (20MG/ML) ONE (06:38)
[2017-02-19] MEDS ORDERED: PROPOFOL IV EMULSION 10 MG/ML 20 ML VIAL IV ONE (06:38)
[2017-02-19] MEDS ORDERED: FENTANYL CITRATE INJ 50 MCG/1 ML 2 ML VIAL ONE (06:38)
[2017-02-19] MEDS ORDERED: BACITRACIN 50000 UNIT VIAL ONE (06:47)
[2017-02-19] MEDS ORDERED: ORTHO JOINT ANESTHETIC ONE (06:47)
[2017-02-19] MEDS: TRANEXAMIC ACID INJ 1,000 MG in SYRINGE 0 ML IV SCH ×2 (06:50→09:56)
[2017-02-19] MEDS ORDERED: NALOXONE HCL 0.4 MG/1 ML VIAL/CARP IV PRN (07:30)
[2017-02-19] MEDS ORDERED: PHENYLEPHRINE 100MCG/ML 5ML SYR IV PRN (07:30)
[2017-02-19] MEDS ORDERED: LABETALOL HCL IV 5 MG/ML 20ML IV PRN (07:30)
[2017-02-19] MEDS ORDERED: ATROPINE SULFATE 0.1 MG/ML 5ML SYR IV PRN (07:30)
[2017-02-19] MEDS ORDERED: MEPERIDINE HCL 25 MG/ML CARP IV PRN (07:30)
[2017-02-19] MEDS ORDERED: FLUMAZENIL 0.1 MG/1 ML 10 ML VIAL IV PRN (07:30)
[2017-02-19] MEDS ORDERED: FENTANYL CITRATE INJ 50 MCG/1 ML 2 ML VIAL IV PRN (07:30)
[2017-02-19] MEDS ORDERED: ONDANSETRON INJ 2 MG/ML 2 ML VIAL IV PRN ×2 (07:30→08:45)
[2017-02-19] MEDS ORDERED: HYDROmorphone INJ 2 MG/ML SYR/VIAL IV PRN (07:30)
[2017-02-19] MEDS ORDERED: EpHEDrine SULFATE INJ 50 MG/ML AMP IV PRN (07:30)
[2017-02-19] MEDS ORDERED: PHENYLEPHRINE HCL INJ 10 MG/ML VIAL ONE (08:04)
--- NOTE | 2017-02-19 08:35 | [facility] Post Operative Brief Note ---
Immediate Operative Summary Operative Date Feb 19, 2017. Pre-Operative Diagnosis Advanced osteoarthritis of the left hip Post-Operative Diagnosis Advanced osteoarthritis of the left hip Procedure(s) Performed Left Anterior Total Hip Arthroplasty-Uncemented Surgeon Dr. Nunes Filter Worker Surgeon(s) Koby Thompson PA-C Estimated Blood Loss 200 ML Findings as above Specimens A: Left femoral head Complication(s) None Disposition Recovery Room / PACU
--- NOTE | 2017-02-19 08:41 | DIAGNOSTIC IMAGING REPORT ---
L HIP UNILATERAL 1 VIEW CLINICAL HISTORY: 86 years-old Female presenting with LT ANTERIOR TOTAL. TECHNIQUE: 2 fluoroscopic spot image(s) obtained as part of an intraoperative procedure. COMPARISON: 01/18/2017. FINDINGS/IMPRESSION: There has been interval total left hip arthroplasty. No malalignment. Please see surgical report for further details. Fluoroscopy dosage (mGy): 4.03. Fluoroscopy time: 36.1 seconds. Number of fluoroscopic spot images: 2. Electronically signed by: Luis Eduardo Reese M.D. 02/19/2017 8:40 AM Dictated Date/Time: 02/19/2017 8:38 AM
[2017-02-19] MEDS ORDERED: MAGNESIUM HYDROXIDE SUSP 30 ML UDC PO PRN (08:45)
[2017-02-19] MEDS ORDERED: SILVER SULFADIAZINE 1% CR 50 GM JAR EXT PRN (08:45)
[2017-02-19] MEDS ORDERED: METOCLOPRAMIDE HCL INJ 5 MG/ML 2 ML VIAL IV PRN (08:45)
[2017-02-19] MEDS ORDERED: SOD PHOSPHATE/SOD BIPHOSPHATE ENEMA 132 ML BTL PR PRN (08:45)
[2017-02-19] MEDS ORDERED: BISACODYL 10 MG SUPP PR PRN (08:45)
[2017-02-19] MEDS ORDERED: MoRPHine SULFATE 2 MG/ML CARP IV PRN (08:45)
--- NOTE | 2017-02-19 08:58 | OPERATIVE REPORT ---
DATE OF OPERATION: 02/19/2017 PREOPERATIVE DIAGNOSIS: Primary osteoarthritis of the left hip. POSTOPERATIVE DIAGNOSIS: Same. PROCEDURE: Left total hip arthroplasty. SURGEON: Dr. Luis Nunes. ENGINEER CONDUCTOR: Koby Thompson PA-C, whose assistance was necessary for retraction and closure. ANESTHESIA: Spinal. COMPLICATIONS: None. CONDITION: Stable to PACU. IMPLANTS USED: I used a Biomet Taperloc total hip arthroplasty system with a size 50 mm G7 cup, a single 30 mm screw, a 36 mm E-poly liner, a size 14 high offset Taperloc pressfit stem and a 36 mm 0 neck ceramic head. INDICATIONS: Denise is a pleasant 86-year-old female who presented to my office with bilateral hip pain. She underwent a right total hip arthroplasty about 2 months ago, did very well with that and elected to proceed with a left total hip replacement. OPERATION AND FINDINGS: On 02/19/2017 she arrived at [facility] for the above procedure. She was seen in the preoperative holding area and the operative extremity was identified and signed. She was given a preoperative antibiotic and a spinal anesthetic. She was taken back to the operating room, laid on the table in supine position and given basic sedation. The left hip was then brought out to a Purist leg positioner. The left hip was then prepped and draped in sterile fashion. Time-out was done and the patient and operative extremity was properly identified. An anterior approach was used. Dissection was taken down to the fascia and the tensor was retracted laterally and the rectus was retracted medially. The circumflex vessels were ligated. The capsule was then incised and tagged for later repair. The femoral neck was exposed. The femoral neck was then resected with a reciprocating saw. The femoral head was then removed. The acetabulum was exposed. Sequential reaming of the acetabulum up to a size 49 reamer was done. A 50 mm G7 cup was then impacted into place. Appropriate version and seating of the cup was checked under fluoroscopy. A single 30 mm screw was placed and then an E1 poly liner was snapped into place. The proximal femur was then exposed. Sequential broaching up to a size 14 broach was done. A standard femoral head was attached. The hip was reduced and fluoroscopic images showed anatomic alignment and appropriate positioning of the hardware. The broach was then removed. The final size 14 stem was then impacted into place. I did trial one more time. I was happy with the standard femoral head. A ceramic standard 0 neck, 36 mm femoral head was then impacted into place. The hip was reduced and final fluoroscopic images showed anatomic alignment. I was able to lengthen her leg a little bit to equal her contralateral side. The wound was then irrigated with 3 liters of normal saline solution with bacitracin. Surrounding soft tissues were injected with 100 mL orthopedic pain control cocktail. The capsule was then repaired with #1 Vicryl suture. The drain was placed. The fascia was then closed with #1 PDS suture. Skin was closed with 2-0 Vicryl, 3-0 V-Loc suture and joce. She was then placed in a soft dressing and taken to the postanesthesia care unit in stable condition. She tolerated the procedure well. I attest to the content of the Intraoperative Record and any orders documented therein. Any exception s are noted below.
[2017-02-19] MEDS ORDERED: POTASSIUM GLUCONATE PO SCH (09:00)
--- NOTE | 2017-02-19 09:28 | DIAGNOSTIC IMAGING REPORT ---
L PELVIS/UNILATERAL HIP 1 VIEW CLINICAL HISTORY: 86 years-old Female presenting with IN PACU - A/P PELVIS and LATERAL HIP INCLUDING ALL OF IMPLANT. TECHNIQUE: Single frontal view of the pelvis and crosstable lateral view of the left hip were obtained. COMPARISON: Fluoroscopic images performed earlier the same day. FINDINGS: Bilateral total hip arthroplasty with new postsurgical changes of left total hip arthroplasty. Overlying skin joce and a surgical drain is noted in the proximal left thigh with minimal soft tissue emphysema. No acute fracture or malalignment. No hardware complication is apparent. Osteopenia may be present. Visualized portion of the bony pelvis normal. IMPRESSION: Expected postsurgical changes status post left total hip arthroplasty. Electronically signed by: Luis Eduardo Reese M.D. 02/19/2017 9:26 AM Dictated Date/Time: 02/19/2017 9:25 AM
--- NOTE | 2017-02-19 09:43 | Anesthesiology Progress Note ---
Anesthesia Post Op Note Date & Time Feb 19, 2017 at 09:43 Vital Signs Pain Intensity: 0 Vital Signs Past 12 Hours Date Time Temp Pulse Resp B/P (MAP) Pulse Ox O2 Delivery O2 Flow Rate FiO2 02/19/17 09:36 53 17 02/19/17 09:36 53 17 100/48 97 02/19/17 09:33 107/48 02/19/17 09:31 60 18 02/19/17 09:31 59 18 99 02/19/17 09:30 57 19 98 02/19/17 09:30 57 19 02/19/17 09:27 100/44 02/19/17 09:25 51 14 02/19/17 09:25 51 14 99 02/19/17 09:22 98/45 02/19/17 09:20 60 23 02/19/17 09:20 60 23 99 02/19/17 09:19 51 16 98 02/19/17 09:19 51 16 02/19/17 09:17 101/46 02/19/17 09:14 51 15 98 02/19/17 09:14 51 15 02/19/17 09:12 102/43 02/19/17 09:09 53 16 02/19/17 09:09 54 16 99 02/19/17 09:07 109/51 02/19/17 09:04 45 14 02/19/17 09:04 47 14 109/48 98 02/19/17 09:03 93/52 02/19/17 08:59 36.2 56 18 93/52 97 Oxymask 10 02/19/17 08:59 52 13 02/19/17 08:59 55 13 97 02/19/17 05:34 36.5 59 18 159/68 99 Room Air Notes Mental Status: alert / awake / arousable, participated in evaluation Pt Amnestic to Procedure: Yes Nausea / Vomiting: adequately controlled Pain: adequately controlled Airway Patency, RR, SpO2: stable & adequate BP & HR: stable & adequate Hydration State: stable & adequate Neuraxial Anesthesia: was administered, sensory block is resolving Anesthetic Complications: no major complications apparent
[2017-02-19] MEDS: SODIUM CHLORIDE 0.9% 1000ML 1,000 ML IV SCH ×2 (10:44→20:32)
[2017-02-19] MEDS: CYANOCOBALAMIN 2,500 MCG SUBL TAB PO SCH (10:46)
[2017-02-19] MEDS: CHOLECALCIFEROL 1000 INTER.UNIT TAB PO SCH (10:46)
[2017-02-19] MEDS: MAGNESIUM OXIDE 400 MG TAB PO SCH (10:46)
[2017-02-19] MEDS: MULTIVITAMIN TAB PO SCH (10:46)
[2017-02-19] MEDS: NEPHROCAPS PO SCH (10:46)
[2017-02-19] MEDS: SACCHAROMYCES BOUL (FLORASTOR) 250 MG CAP PO SCH (10:47)
[2017-02-19] MEDS ORDERED: INFLUENZA VACCINE HIGH DOSE 65+ 0.5 ML SYR IM. ONE (12:00)
[2017-02-19] MEDS ORDERED: INFLUENZA ADMINISTRATION CHARGE ONE (12:00)
[2017-02-19] MEDS: ACETAMINOPHEN IV 1,000 MG in EMPTY BAG 0 ML IV SCH ×2 (13:50→21:31)
[2017-02-19] MEDS: KETOROLAC TROMETHAMINE 15 MG/ML VIAL IV. SCH ×2 (13:51→18:51)
[2017-02-19] MEDS: CEFAZOLIN IV 1,000 MG in SYRINGE 0 ML IV SCH (17:51)
[2017-02-19] MEDS: ASPIRIN 325 MG ECTAB PO SCH (20:32)
[2017-02-19] MEDS: DOCUSATE SODIUM 100 MG CAP PO SCH (20:32)
[2017-02-19] MEDS: SENNA 8.6 MG TAB PO SCH (20:33)
[2017-02-19] MEDS: LEVETIRACETAM 250 MG TAB PO SCH (20:33)
[2017-02-20] MEDS: CEFAZOLIN IV 1,000 MG in SYRINGE 0 ML IV SCH (01:38)
[2017-02-20] MEDS: KETOROLAC TROMETHAMINE 15 MG/ML VIAL IV. SCH ×4 (01:38→20:28)
[2017-02-20 03:36] VITALS: BP 102/61; PULSE 65; TEMP 36.7; O2SAT 97
[2017-02-20] MEDS: LEVOTHYROXINE 25 MCG TAB PO SCH (06:18)
[2017-02-20] MEDS: SODIUM CHLORIDE 0.9% 1000ML 1,000 ML IV SCH (06:19)
[2017-02-20] MEDS: ACETAMINOPHEN IV 1,000 MG in EMPTY BAG 0 ML IV SCH (06:19)
[2017-02-20 07:18] LABS: BASO % 0.2 %; BASO ABS # 0.02 K/uL (0-0.2); COMPLETE YES; EOS % 0.4 %; HEMATOCRIT 31.4 % (37-47); IG% 0.2 %; LYMPH % 20.6 %; MEAN CELL VOLUME 92.4 fL (80-100); MEAN CORPUSCULAR HEMOGLOBIN 29.4 pg (25-34); MEAN CORPUSCULAR HGB CONC 31.8 g/dl (32-36); MEAN PLATELET VOLUME 10.2 fL (7.4-10.4); MONO % 10.2 %; NEUT % 68.4 %; PLATELET COUNT 128 K/uL (130-400); WHITE BLOOD COUNT 8.27 K/uL (4.8-10.8)
[2017-02-20] MEDS: PROPYLENE GLYCOL 0.6% (OPHTH) 15 DROP/ML 10ML BTL OPB SCH (07:22)
[2017-02-20 07:36] VITALS: BP 107/61; PULSE 55; TEMP 36.5; O2SAT 97
[2017-02-20 07:51] LABS: BUN/CREATININE RATIO 19.7 (10-20); CALCIUM 7.8 mg/dl (8.5-10.1); CREATININE 0.61 mg/dl (0.60-1.20); POTASSIUM 3.4 mmol/L (3.5-5.1)
[2017-02-20] MEDS: ASPIRIN 325 MG ECTAB PO SCH ×2 (08:35→20:28)
[2017-02-20] MEDS: CYANOCOBALAMIN 2,500 MCG SUBL TAB PO SCH (08:36)
[2017-02-20] MEDS: CHOLECALCIFEROL 1000 INTER.UNIT TAB PO SCH (08:36)
[2017-02-20] MEDS: MAGNESIUM OXIDE 400 MG TAB PO SCH (08:36)
[2017-02-20] MEDS: DOCUSATE SODIUM 100 MG CAP PO SCH ×2 (08:36→20:27)
[2017-02-20] MEDS: SACCHAROMYCES BOUL (FLORASTOR) 250 MG CAP PO SCH (08:36)
[2017-02-20] MEDS: NEPHROCAPS PO SCH (08:36)
[2017-02-20] MEDS: ASCORBIC ACID 500 MG TAB PO SCH (08:36)
[2017-02-20] MEDS: MULTIVITAMIN TAB PO SCH (08:36)
[2017-02-20] MEDS: LEVETIRACETAM 250 MG TAB PO SCH ×2 (08:37→20:28)
[2017-02-20] MEDS: OXYCODONE HCL IR 5 MG TAB (IMMEDIATE RELEASE) PO PRN ×2 (08:41→13:00)
--- NOTE | 2017-02-20 10:50 | PROGRESS NOTE ---
DATE: 02/20/2017 DATE: 02/20/2017 CHIEF COMPLAINT: Status post left total hip arthroplasty postop day #1. PROGRESS: Denise was seen and examined at bedside today. Overall, she is doing very well. She really has no pain in her left hip. She is very happy with her progress at this point. She has been up and ambulating. PHYSICAL EXAMINATION: LEFT HIP: The dressing has a little bit of drainage, but not much. The drain is still to suction. Her leg lengths are equal. She has active dorsiflexion and plantarflexion of her left ankle. She has good sensation in her quad. LABORATORY DATA: She has an H&H of 10.0 and 31.4. Her glucose is 87. VITAL SIGNS: All stable on room air. She is voiding on her own. IMAGING DATA: X-rays postoperatively of the left hip show the prosthesis to be in anatomical alignment without any evidence of fracture, dislocation or loosening. Leg lengths appear equal. IMPRESSION: Status post left total hip arthroplasty postop day #1. PLAN: At this point, she is doing well and happy with her progress. She can be up and ambulating with physical therapy throughout the day today. She is on aspirin for DVT prophylaxis. Tomorrow the nursing staff can change the dressing, pull the drain and we plan to discharge her to home with her daughter.
[2017-02-20 11:05] VITALS: BP 107/61; PULSE 65; O2SAT 97
[2017-02-20 11:45] VITALS: BP 106/61; PULSE 65; O2SAT 98
[2017-02-20 15:12] VITALS: BP 96/58; PULSE 62; TEMP 36.8; O2SAT 100
[2017-02-20] MEDS: SENNA 8.6 MG TAB PO SCH (20:27)
[2017-02-20 23:17] VITALS: BP 140/58; PULSE 63; TEMP 37; O2SAT 91
[2017-02-21] MEDS: KETOROLAC TROMETHAMINE 15 MG/ML VIAL IV. SCH ×2 (02:05→07:08)
[2017-02-21] MEDS: LEVOTHYROXINE 25 MCG TAB PO SCH (05:46)
[2017-02-21 07:05] VITALS: BP 126/57; PULSE 73; TEMP 37.6; O2SAT 96
[2017-02-21] MEDS: SACCHAROMYCES BOUL (FLORASTOR) 250 MG CAP PO SCH (07:09)
[2017-02-21] MEDS: CYANOCOBALAMIN 2,500 MCG SUBL TAB PO SCH (07:09)
[2017-02-21] MEDS: ASCORBIC ACID 500 MG TAB PO SCH (07:09)
[2017-02-21] MEDS: MULTIVITAMIN TAB PO SCH (07:09)
[2017-02-21] MEDS: NEPHROCAPS PO SCH (07:09)
[2017-02-21] MEDS: MAGNESIUM OXIDE 400 MG TAB PO SCH (07:09)
[2017-02-21] MEDS: CHOLECALCIFEROL 1000 INTER.UNIT TAB PO SCH (07:09)
[2017-02-21] MEDS: PROPYLENE GLYCOL 0.6% (OPHTH) 15 DROP/ML 10ML BTL OPB SCH (07:09)
[2017-02-21] MEDS ORDERED: ASPEC325 PO (08:38)
[2017-02-21] MEDS ORDERED: RXC5 PO (08:38)
--- NOTE | 2017-02-21 08:39 | Discharge Instructions ---
Discharge Instructions Date of Service Feb 21, 2017. Admission Reason for Admission: Left Hip Degenerative Joint Disease Discharge Discharge Diagnosis / Problem: Left Total Hip Discharge Goals Goal(s): Decrease discomfort, Improve function Activity Recommendations Activity Limitations: as noted below . Instructions / Follow-Up Instructions / Follow-Up Activity and Therapy Recommendations: * If you are using [facility] then Physical Therapy will be provided until they feel you are ready to start Outpatient Physical Therapy. If you are not using a Home Health agency then Outpatient Physical Therapy should start about 3-5 days from your day of surgery. Therapy will last about 3-6 weeks * You were shown a series of exercises in the hospital. Do these exercises three times each day including the exercises you were shown in physical therapy. * Get up and walk several times each day.~ For the first four weeks, try not to stand or walk for more than one hour at a time. If you do stand or walk for more than one hour, you will not hurt anything, but your leg will likely swell.~ ~ * As you feel comfortable, you may change from the walker or crutches to a cane and~then to independent walking. Medications: * Narcotic You will likely be sent home from the hospital with a prescription for the narcotic pain medication that worked best throughout your stay. * Aspirin Most patients will be required to take Aspirin 325mg twice a day for 6 weeks after surgery. This is obtained [id number] and a prescription is not necessary. * Other medications may be prescribed for specific circumstances. If you have any questions, please call the office at . * Resume previous home medications unless otherwise instructed TEDs/Elastic Stockings: The white elastic stockings help limit swelling and prevent blood clots from forming in your legs. The more you wear them, the more they work. Wear them for six weeks. Showering: You may shower 5 days from the day of surgery. Let the soapy shower water run over the joce. Do not scrub or soak the incision. Things To Watch For: * Drainage from the incision site that occurs more than one week after your surgery. * Increased redness at the incision site. * Fever above 102 degrees Fahrenheit. * Unusual chest pain or shortness of breath. * Call [facility] at with any of the above problems Follow-Up Visit: Follow-up with Dr. Nunes 2-3 weeks after your day of surgery. An appointment was probably scheduled when you signed-up for surgery in the office. If you have any questions call Office Instructions: More detailed instructions as well as Frequently Asked Questions were provided in a folder by our office when you signed-up for surgery. Please review these instructions when you get home. If you have any further questions or concerns, please feel free to call the office at [phone] Current Hospital Diet Patient's current hospital diet: Regular Diet Discharge Diet Recommended Diet: Regular Diet Procedures Procedures Performed: Left Anterior Total Hip Arthroplasty-Uncemented Pending Studies Studies pending at discharge: no Medical Emergencies . Who to Call and When: Medical Emergencies: If at any time you feel your situation is an emergency, please call 911 immediately. . Non-Emergent Contact Non-Emergency issues call your: Surgeon Call Non-Emergent contact if: wound has increased drainage, wound has increased redness . "Provider Documentation" section prepared by Luis Nunes. . VTE Core Measure Inpt VTE Proph given/why not?: Other Anticoagulation (Aspirin 325 twice a day for 6 weeks)
[2017-02-21] MEDS: DOCUSATE SODIUM 100 MG CAP PO SCH (08:43)
[2017-02-21] MEDS: ASPIRIN 325 MG ECTAB PO SCH (08:43)
[2017-02-21] MEDS: LEVETIRACETAM 250 MG TAB PO SCH (08:44)
[2017-02-21] MEDS: OXYCODONE HCL IR 5 MG TAB (IMMEDIATE RELEASE) PO PRN (08:46)
[2017-02-21 09:41] VITALS: BP 126/57; PULSE 73; TEMP 37.6; O2SAT 96
--- NOTE | 2017-02-21 10:29 | PROGRESS NOTE ---
DATE: 02/21/2017 CHIEF COMPLAINT: Status post left total hip arthroplasty postop day #2. PROGRESS: Denise was seen and examined at bedside today. Overall, she is doing very well. She really not having any pain in the hip. She has been up and ambulating well with physical therapy. She has no complaints. PHYSICAL EXAMINATION: LEFT HIP: The dressing has been changed and drain has been pulled. Her leg lengths are equal. She has active dorsiflexion and plantarflexion of her left ankle. Sensation is intact. IMPRESSION: Status post total hip arthroplasty of the left hip. PLAN: At this point, she is doing well and happy with her progress. She has been up and ambulating well with physical therapy. Her pain is controlled. She is on aspirin 325 mg twice a day for DVT prophylaxis. Will discharge her to home later today with [facility].
--- NOTE | 2017-02-21 13:06 | DISCHARGE SUMMARY ---
DISCHARGE DIAGNOSIS: Primary osteoarthritis of the left hip. PROCEDURE: Left total hip arthroplasty on 02/19/[address] Luis Nunes. DISCHARGE INSTRUCTIONS: 1. Aspirin 325 mg twice a day for 6 weeks. 2. Oxycodone 5 mg every 4 hours as needed for pain. 3. Boniva 150 mg monthly. 4. Keppra 250 mg in the morning and 500 mg in the evening. 5. Synthroid 25 mcg daily. 6. Continue all other vitamins and supplements. 7. Weightbear as tolerated. 8. Follow up with Dr. Nunes in 2 weeks. 9. Call the office of Dr. Nunes with any questions or concerns. HOSPITAL COURSE: Denise is a pleasant 86-year-old female who presented to my office with chronic left hip pain. X-rays and clinical examination were diagnostic for primary osteoarthritis of the left hip. After failing conservative treatment, she elected to undergo a left total hip arthroplasty. On 02/19/2017, she arrived at [facility] and underwent a left hip replacement without complication. She had a spinal anesthetic. Postoperatively, she was discharged to general orthopedic floor. She was started on aspirin 325 mg twice a day for DVT prophylaxis. On postoperative day #1, her H&H was stable at 10.0 and 31.4. She was up and ambulating well with physical therapy and her pain was controlled. On postop day #2, the dressings were changed, the drain was pulled, she continued to work well with physical therapy. She was subsequently discharged to home where her son was going to be living with her and she was going to get [facility].
== END 2017-02-21 11:20 | disposition home health service (06) | DRG 470 ==
LOC: C.ACU 05:00 → C.3E 06:30 → ENRESERV 09:42
PROVIDERS: ADMIT Orthopaedic Surgery; ATTEND Orthopaedic Surgery
PROC: 0SRB04A Replacement of Left Hip Joint with Ceramic on Polyethylene Synthetic Substitute, Uncemented, Open Approach (ICD-10-PCS; principal; 2017-02-19 07:00)
DX: M16.12 Unilateral primary osteoarthritis, left hip (principal); G40.909 Epilepsy, unspecified, not intractable, without status epilepticus; E03.9 Hypothyroidism, unspecified; M85.80 Other specified disorders of bone density and structure, unspecified site; E66.9 Obesity, unspecified; Z68.27 Body mass index [BMI] 27.0-27.9, adult; Z96.641 Presence of right artificial hip joint; Z96.653 Presence of artificial knee joint, bilateral; Z85.3 Personal history of malignant neoplasm of breast; Z85.72 Personal history of non-Hodgkin lymphomas; Z79.899 Other long term (current) drug therapy

== ENCOUNTER 2017-03-05 12:26 | Inpatient (IN) | payer OTHER, BC ==
[~2017-03-05] VITALS: Ht 165.1 cm; Wt 81.4 kg
[~2017-03-05 12:26] MED LIST changes: +ASPEC325 PO; -ASPI81TA28 PO; +RXC5 PO
[2017-03-05 13:35] LABS: BASO % 0.5 %; BASO ABS # 0.05 K/uL (0-0.2); COMPLETE YES; EOS % 0.5 %; HEMATOCRIT 37.4 % (37-47); IG% 0.2 %; LYMPH % 9.1 %; MEAN CELL VOLUME 91.7 fL (80-100); MEAN CORPUSCULAR HEMOGLOBIN 29.9 pg (25-34); MEAN CORPUSCULAR HGB CONC 32.6 g/dl (32-36); MEAN PLATELET VOLUME 9.3 fL (7.4-10.4); MONO % 4.8 %; NEUT % 84.9 %; PLATELET COUNT 327 K/uL (130-400); RED BLOOD COUNT 4.08 M/uL (4.2-5.4)
[2017-03-05 13:42] LABS: BUN/CREATININE RATIO 27.9 (10-20); CALCIUM 8.9 mg/dl (8.5-10.1); CREATININE 0.69 mg/dl (0.60-1.20); POTASSIUM 4.2 mmol/L (3.5-5.1)
[2017-03-05 13:44] LABS: INR 0.9 (0.9-1.1); PARTIAL THROMBOPLASTIN RATIO 0.9; PROTHROMBIN TIME (PATIENT) 9.9 SECONDS (9.0-12.0)
[2017-03-05] MEDS ORDERED: ONDANSETRON INJ 2 MG/ML 2 ML VIAL IV STA (13:56)
[2017-03-05] MEDS ORDERED: MoRPHine SULFATE 4 MG/ML 1 ML CARP\\VIAL IV STA (13:56)
--- NOTE | 2017-03-05 15:09 | DIAGNOSTIC IMAGING REPORT ---
CHEST 1 VW FRONT-NOT PORTABLE HISTORY: Fall. LT HIP FX COMPARISON: Chest 10/16/2016. FINDINGS: Small calcifications within the left upper lung zone remain unchanged. This may represent small calcified pleural plaques. Otherwise, the lungs are clear. The heart is normal in size. No pleural effusions. No pneumothorax. IMPRESSION: No significant change compared to the prior study. No acute process. Electronically signed by: Germán Cuevas M.D. 03/05/2017 3:08 PM Dictated Date/Time: 03/05/2017 3:06 PM
--- NOTE | 2017-03-05 15:09 | DIAGNOSTIC IMAGING REPORT ---
L FEMUR 2 VIEWS ROUTINE, L KNEE 1 OR 2 VIEWS ROUTINE HISTORY: 86 years-old Female eval for fx acute left leg pain status post fall COMPARISON: Pelvis radiograph of same day TECHNIQUE: 2 views of the left femur and 2 views of the left knee FINDINGS: FEMUR: Acute oblique fracture of the proximal femoral shaft is noted with apex lateral angulation of 16 degrees and 1.9 cm lateral displacement. Left hip arthroplasty. Acetabular component of the hardware appears intact. Moderate soft tissue swelling. KNEE: Left knee arthroplasty without complication. The bones appear moderately demineralized. Small knee joint effusion. IMPRESSION: 1. Acute mildly angulated and displaced periprosthetic fracture of the left proximal femoral shaft with moderate soft tissue swelling. 2. Left knee arthroplasty without location. The above report was generated using voice recognition software. It may contain grammatical, syntax or spelling errors. Electronically signed by: Riki Avila M.D. 03/05/2017 3:08 PM Dictated Date/Time: 03/05/2017 3:06 PM
--- NOTE | 2017-03-05 15:13 | DIAGNOSTIC IMAGING REPORT ---
PELVIS 1 OR 2 VIEW ROUTINE CLINICAL HISTORY: Left hip pain. Fall. COMPARISON STUDY: None. FINDINGS: Partially visualized fracture within the proximal shaft of the left femur. There are bilateral total hip arthroplasties. No dislocation. The visualized pelvic bones appear intact. No fractures within the sacrum. The bones are osteopenic. IMPRESSION: 1. No fractures identified within the pelvis. 2. Partially visualized periprosthetic fracture within the proximal shaft of the left femur. Electronically signed by: Germán Cuevas M.D. 03/05/2017 3:12 PM Dictated Date/Time: 03/05/2017 3:08 PM
[2017-03-05] MEDS ORDERED: MoRPHine SULFATE 2 MG/ML CARP IV STA (15:34)
[2017-03-05] MEDS ORDERED: SODIUM CHLORIDE 0.9% 1000ML 1,000 ML IV SCH (15:44)
[2017-03-05] MEDS ORDERED: NALOXONE HCL 0.4 MG/1 ML VIAL/CARP IV PRN (15:45)
[2017-03-05] MEDS ORDERED: MoRPHine SULFATE 4 MG/ML 1 ML CARP\\VIAL IV PRN (15:45)
[2017-03-05] MEDS ORDERED: BISACODYL 10 MG SUPP PR PRN (15:45)
[2017-03-05] MEDS ORDERED: ACETAMINOPHEN 325 MG TAB PO PRN (15:45)
[2017-03-05] MEDS ORDERED: OXYCODONE HCL IR 5 MG TAB (IMMEDIATE RELEASE) PO PRN (15:45)
[2017-03-05] MEDS ORDERED: SOD PHOSPHATE/SOD BIPHOSPHATE ENEMA 132 ML BTL PR PRN (15:45)
[2017-03-05] MEDS ORDERED: MAGNESIUM HYDROXIDE SUSP 30 ML UDC PO PRN (15:45)
[2017-03-05] MEDS ORDERED: POLYETHYLENE (MIRALAX) 17 GM PACK PO PRN (15:45)
--- NOTE | 2017-03-05 16:41 | History and Physical ---
History & Physical Date & Time of Service: Mar 05, 2017 at 16:19 Chief Complaint: Hip Pain/Groin Pain Primary Care Physician: Concetta Frias M.D. History of Present Illness Source: patient This is an 86 yo F with a PMHx of seizure disorder, breast cancer in 1992 s/p R lumpectomy and multiple lymph node removal, osteopenia and osteoarthritis who is s/p elective R total hip arthroplasty on 12/11/16 and s/p elective L total hip arthropasty on 02/22/[address] Nunes. The patient notes on Wednesday noticed an extreme left groin pain and weakness. She denies any injury to the leg at that point. She took a few tylenol and continue PT as had been ordered. She was evaluated at Dr. Albrets office on Saturday 03/03 and xrays were obtained, but were negative per family report. The joce from her surgery were removed at that point. Today the patient was getting into the shower which has a 4 inch lip around the border, she felt her left leg give out, and tried to catch herself from falling by reaching for a grab bar which was suctioned to the wall. She denies lightheadedness, dizziness, LOC, or injury to the head. She reports taking her regularly medications this morning, including full dose Aspirin. She reports her pain is currently well controlled. No numbness of tingling into the lower leg. Here in the ER imaging reveals a L periprosthetic hip fracture. Will make NPO after midnight Past Medical/Surgical History Medical Problems: (1) Breast cancer s/p R lumpectomy (2) Hypothyroidism (3) Osteoarthritis of hip (4) Osteopenia (5) Periprosthetic fracture around internal prosthetic left hip joint (6) Seizure disorder (7) Status post fall Surgical Problems: (1) S/P prosthetic total arthroplasty of the hip Social History Smoking Status: Never Smoker Smokeless Tobacco Use: No Alcohol Use: none Drug Use: none Housing status: lives with family Occupational Status: retired Allergies Coded Allergies: No Known Allergies (Unverified , 03/05/17) Home Medications Scheduled Ascorbic Acid (Vitamin C), 1,000 MG PO QAM Aspirin (Aspirin), 325 MG PO BID B-Complex W/ Folic Acid (Super B Complex Maxi), 1 TAB PO QAM Calcium Carbonate-Cholecalcife (Calcium 1000 + D), 1 TAB PO QAM Cholecalciferol (Vitamin D3), 2,000 UNITS PO QAM Cyanocobalamin (Vitamin B-12), 1 TAB PO QAM Ibandronate Sodium (Boniva), 150 MG PO MONTHLY Levetiracetam (Keppra), 250 MG PO QAM Levetiracetam (Keppra), 500 MG PO QPM Levothyroxine Sodium (Levothyroxine Sodium), 25 MCG PO QAM Magnesium Oxide (Mag-Ox), 400 MG PO QAM Multiple Vitamins W/ Minerals (Centrum Silver Ultra Wome), 1 TAB PO QAM Multiple Vitamins W/ Minerals (Ocuvite), 1 TAB PO QAM Multiple Vitamins W/ Minerals (I-Gabo), 1 TAB PO QAM Polyethylene Glycol-Propylene (Systane), 2 DROPS OP QPM Potassium Gluconate (K-99), 1 TAB PO QAM Saccharomyces Boulardii (Probiotic), 1 TAB PO QAM Vitamin B Cmplx/Vitc/Folic Ac (Nephrocaps), 1 CAP PO QAM Scheduled PRN Oxycodone HCl (Oxycodone HCl), 5-10 MG PO Q4H PRN for Pain Review of Systems Constitutional: No fever, No chills, No sweats, No weight loss, No fatigue Eyes: No redness, No problem reported ENT: No sore throat, No trouble swallowing Respiratory: No cough, No sputum, No wheezing, No shortness of breath Cardiovascular: No chest pain, No edema Abdomen: No pain, No nausea, No vomiting, No diarrhea, No constipation Musculoskeletal: + joint pain (Left hip and thigh), No swelling, No calf pain Genitourinary - Female: No dysuria Neurologic: No weakness, No numbness/tingling, No balance problems Psychiatric: No depression symptoms, No anxiety Endocrine: No fatigue Integumentary: No rash, No itch Physical Exam Vital Signs Date Time Temp Pulse Resp B/P (MAP) Pulse Ox O2 Delivery O2 Flow Rate FiO2 03/05/17 15:06 36.9 77 18 173/65 98 Room Air 03/05/17 14:19 75 18 133/58 94 Room Air 03/05/17 12:51 Room Air 03/05/17 12:48 75 03/05/17 12:37 36.8 78 18 174/64 98 Room Air General Appearance: WD/WN, no apparent distress Head: normocephalic, atraumatic Eyes: PERRL, EOMI ENT: normal ENT inspection, pharynx normal, + pertinent finding (MM slightly dry) Neck: supple Respiratory/Chest: chest non-tender, lungs clear, no respiratory distress, no accessory muscle use Cardiovascular: regular rate, rhythm, normal peripheral pulses, + systolic murmur Abdomen/GI: normal bowel sounds, non tender, soft Back: normal inspection Extremities/Musculoskelatal: no calf tenderness, no pedal edema, + pertinent finding (LLE shortened, + erythema and warmth over the left thigh, + incision site lateral left thigh appears well healed, no surrounding erythema or purulent drainage, joce removed.) Neurologic/Psych: alert, normal mood/affect, oriented x 3 Skin: normal color, warm/dry Diagnostics Laboratory Results Results Past 24 Hours Test 03/05/17 12:55 Range/Units White Blood Count 11.00 4.8-10.8 K/uL Red Blood Count 4.08 4.2-5.4 M/uL Hemoglobin 12.2 12.0-16.0 g/dL Hematocrit 37.4 37-47 % Mean Corpuscular Volume 91.7 80-100 fL Mean Corpuscular Hemoglobin 29.9 25-34 pg Mean Corpuscular Hemoglobin Concent 32.6 32-36 g/dl Platelet Count 327 130-400 K/uL Mean Platelet Volume 9.3 7.4-10.4 fL Neutrophils (%) (Auto) 84.9 % Lymphocytes (%) (Auto) 9.1 % Monocytes (%) (Auto) 4.8 % Eosinophils (%) (Auto) 0.5 % Basophils (%) (Auto) 0.5 % Neutrophils # (Auto) 9.35 1.4-6.5 K/uL Lymphocytes # (Auto) 1.00 1.2-3.4 K/uL Monocytes # (Auto) 0.53 0.11-0.59 K/uL Eosinophils # (Auto) 0.05 0-0.5 K/uL Basophils # (Auto) 0.05 0-0.2 K/uL RDW Standard Deviation 48.6 36.4-46.3 fL RDW Coefficient of Variation 14.5 11.5-14.5 % Immature Granulocyte % (Auto) 0.2 % Immature Granulocyte # (Auto) 0.02 0.00-0.02 K/uL Prothrombin Time 9.9 9.0-12.0 SECONDS Prothromb Time International Ratio 0.9 0.9-1.1 Activated Partial Thromboplast Time 24.0 21.0-31.0 SECONDS Partial Thromboplastin Ratio 0.9 Sodium Level 140 136-145 mmol/L Potassium Level 4.2 3.5-5.1 mmol/L Chloride Level 103 98-107 mmol/L Carbon Dioxide Level 30 21-32 mmol/L Anion Gap 7.0 3-11 mmol/L Blood Urea Nitrogen 19 7-18 mg/dl Creatinine 0.69 0.60-1.20 mg/dl Est Creatinine Clear Calc Drug Dose 64.0 ml/min Estimated GFR () 92.6 Estimated GFR (Non- 79.9 BUN/Creatinine Ratio 27.9 10-20 Random Glucose 109 70-99 mg/dl Calcium Level 8.9 8.5-10.1 mg/dl Diagnostic Radiology PELVIS 1 OR 2 VIEW ROUTINE CLINICAL HISTORY: Left hip pain. Fall. COMPARISON STUDY: None. FINDINGS: Partially visualized fracture within the proximal shaft of the left femur. There are bilateral total hip arthroplasties. No dislocation. The visualized pelvic bones appear intact. No fractures within the sacrum. The bones are osteopenic. IMPRESSION: 1. No fractures identified within the pelvis. 2. Partially visualized periprosthetic fracture within the proximal shaft of the left femur. Electronically signed by: Gremán Cuevas M.D. 03/05/2017 3:12 PM Dictated Date/Time: 03/05/2017 3:08 PM The status of this report is Signed. L FEMUR 2 VIEWS ROUTINE, L KNEE 1 OR 2 VIEWS ROUTINE HISTORY: 86 years-old Female eval for fx acute left leg pain status post fall COMPARISON: Pelvis radiograph of same day TECHNIQUE: 2 views of the left femur and 2 views of the left knee FINDINGS: FEMUR: Acute oblique fracture of the proximal femoral shaft is noted with apex lateral angulation of 16 degrees and 1.9 cm lateral displacement. Left hip arthroplasty. Acetabular component of the hardware appears intact. Moderate soft tissue swelling. KNEE: Left knee arthroplasty without complication. The bones appear moderately demineralized. Small knee joint effusion. IMPRESSION: 1. Acute mildly angulated and displaced periprosthetic fracture of the left proximal femoral shaft with moderate soft tissue swelling. 2. Left knee arthroplasty without location. The above report was generated using voice recognition software. It may contain grammatical, syntax or spelling errors. Electronically signed by: Riki Avila M.D. 03/05/2017 3:08 PM Dictated Date/Time: 03/05/2017 3:06 PM The status of this report is Signed. L FEMUR 2 VIEWS ROUTINE, L KNEE 1 OR 2 VIEWS ROUTINE HISTORY: 86 years-old Female eval for fx acute left leg pain status post fall COMPARISON: Pelvis radiograph of same day TECHNIQUE: 2 views of the left femur and 2 views of the left knee FINDINGS: FEMUR: Acute oblique fracture of the proximal femoral shaft is noted with apex lateral angulation of 16 degrees and 1.9 cm lateral displacement. Left hip arthroplasty. Acetabular component of the hardware appears intact. Moderate soft tissue swelling. KNEE: Left knee arthroplasty without complication. The bones appear moderately demineralized. Small knee joint effusion. IMPRESSION: 1. Acute mildly angulated and displaced periprosthetic fracture of the left proximal femoral shaft with moderate soft tissue swelling. 2. Left knee arthroplasty without location. The above report was generated using voice recognition software. It may contain grammatical, syntax or spelling errors. Electronically signed by: Riki Avila M.D. 03/05/2017 3:08 PM Dictated Date/Time: 03/05/2017 3:06 PM The status of this report is Signed. CHEST 1 VW FRONT-NOT PORTABLE HISTORY: Fall. LT HIP FX COMPARISON: Chest 10/16/2016. FINDINGS: Small calcifications within the left upper lung zone remain unchanged. This may represent small calcified pleural plaques. Otherwise, the lungs are clear. The heart is normal in size. No pleural effusions. No pneumothorax. IMPRESSION: No significant change compared to the prior study. No acute process. Electronically signed by: Germán Cuevas M.D. 03/05/2017 3:08 PM Dictated Date/Time: 03/05/2017 3:06 PM The status of this report is Signed. Impression Assessment and Plan (1) Periprosthetic fracture around internal prosthetic left hip joint (2) Status post fall Assessment & Plan: - Admit to med/surg - Ortho consulted - Dr. Nunes - Imaging reviewed as above - Continue with pain management with morphine sulfate 2-4 mg IV prn, oxycodone, and tylenol Q8H - Bowel regimen in place - Ancef preop - Hold asa 325 mg BID with possible surgical intervention - Will make NPO after midnight except meds - PT/OT - CM to assist with d/c planning - currently has [employer] [facility] [employer] twice weekly for PT/OT (3) Breast cancer s/p R lumpectomy Assessment & Plan: - Left limb restriction - Dx 1992 - sp XRT, no chemotherapy - Stable (4) Seizure disorder Assessment & Plan: - Follows with Dr. Monk as an outpatient - Continue keppra 250 Q am and 500 QPM (5) Osteopenia Assessment & Plan: - Continue vitamin D supplementation - Continue Boniva 150 mg monthly injection (6) Hypothyroidism Assessment & Plan: -Continue synthroid 25 mcg daily Level of Care Med/Surg Advanced Directives Existing Advance Directive: Yes Existing Living Will: Yes Existing Power of Pump Mechanic: Yes Existing Health Care Proxy: Yes Resuscitation Status DO NOT RESUSCITATE VTE Prophylaxis VTE Risk Assessment Done? Y/N: Yes Risk Level: Low Given or contraindicated: T.E.D. Stockings, SCD's, Contraindicated (possible surgical intervention)
[2017-03-05] MEDS ORDERED: MoRPHine SULFATE 2 MG/ML CARP IV PRN (17:15)
[2017-03-05] MEDS ORDERED: ZOLPIDEM TARTRATE 5 MG TAB PO PRN (17:15)
[2017-03-05] MEDS ORDERED: DiphenhydrAMINE HCL 50 MG/ML VIAL IV PRN (17:15)
[2017-03-05] MEDS ORDERED: ONDANSETRON INJ 2 MG/ML 2 ML VIAL IV PRN (17:15)
[2017-03-05] MEDS ORDERED: METOCLOPRAMIDE HCL INJ 5 MG/ML 2 ML VIAL IV PRN (17:15)
[2017-03-05] MEDS ORDERED: OXYCODONE/ACETAMINOPHEN 5-325 TAB PO PRN (17:15)
[2017-03-05 17:30] VITALS: BP 156/72; PULSE 80; TEMP 37; O2SAT 95; Ht 165.1 cm; Wt 81.4 kg
--- NOTE | 2017-03-05 17:39 | Medical Consult ---
Consultation Date of Consultation: Mar 05, 2017. Attending Physician: Reason for Consultation: PERIPROSTHETIC FRACTURE OF THE LEFT HIP History of Present Illness The patient is a pleasant 86 year old female who underwent a Left anterior total hip arthroplasty on 02/19/2017. She was seen in the office on Wednesday and evaluated for her post operative visit. She then states that this morning when she was trying to take a shower, hit her foot on the lip of the shower and lost her balance. She then tried to catch herself by grabbing a rail that was attached to the wall via suction. This bar gave way and she went into a "complete split". She had significant left hip and leg pain as well as a rotational deformity. She called 911 and was transported to the Hospital via ambulance. Past Medical/Surgical History Medical Problems: (1) Periprosthetic fracture around internal prosthetic left hip joint Status: Acute (2) Status post fall Status: Acute Social History Smoking Status: Never Smoker Smokeless Tobacco Use: No Alcohol Use: none Drug Use: none Occupation Status: retired Allergies Coded Allergies: No Known Allergies (Unverified , 03/05/17) Current Inpatient Medications Current Inpatient Medications Medications (Trade) Dose Ordered Sig/Albertina Route Start Time Stop Time Status Last Admin Dose Admin Sodium Chloride 1,000 ml @ 80 mls/hr [id number] IV 03/05/17 15:44 04/04/17 15:43 Cefazolin Sodium 2000 mg/Dextrose 60 ml @ 120 mls/hr PREOP IV 03/06/17 06:00 03/07/17 05:59 UNV Acetaminophen (Tylenol Tab) 650 mg Q6H PRN PO 03/05/17 15:45 04/04/17 15:44 Oxycodone HCl (Roxicodone Immediate Rel Tab) 5 mg Q4H PRN PO 03/05/17 15:45 03/19/17 15:44 Oxycodone HCl (Roxicodone Immediate Rel Tab) 10 mg Q4H PRN PO 03/05/17 15:45 03/19/17 15:44 Morphine Sulfate (MoRPHine SULFATE INJ) 2 mg Q2H PRN IV 03/05/17 15:45 03/19/17 15:44 Morphine Sulfate (MoRPHine SULFATE INJ) 4 mg Q2H PRN IV 03/05/17 15:45 03/19/17 15:44 Naloxone HCl (Narcan Inj) 0.1 mg PRN PRN IV 03/05/17 15:45 04/04/17 15:44 Senna/Docusate Sodium (Senokot S Tab) 2 tab HS PO 03/05/17 21:00 04/04/17 20:59 Polyethylene (Miralax Powder Packet) 17 gm DAILY PRN PO 03/05/17 15:45 04/04/17 15:44 Magnesium Hydroxide (Milk Of Magnesia Susp) 30 ml DAILY PRN PO 03/05/17 15:45 04/04/17 15:44 Bisacodyl (Dulcolax Supp) 10 mg DAILY PRN MN 03/05/17 15:45 04/04/17 15:44 Sodium Biphosphate/ Sodium Phosphate (Fleet Enema) 132 ml PRN PRN MN 03/05/17 15:45 Ascorbic Acid (Vitamin C Tab) 1,000 mg QAM PO 03/06/17 09:00 04/05/17 08:59 Cholecalciferol (Vitamin D Tab) 2,000 inter.unit QAM PO 03/06/17 09:00 04/05/17 08:59 Levetiracetam (Keppra Tab) 250 mg QAM PO 03/06/17 09:00 04/05/17 08:59 Levetiracetam (Keppra Tab) 500 mg QPM PO 03/05/17 21:00 04/04/17 20:59 Levothyroxine Sodium (Synthroid Tab) 25 mcg DAILYBB PO 03/06/17 07:00 04/05/17 06:59 Magnesium Oxide (Mag-Ox Tab) 400 mg QAM PO 03/06/17 09:00 04/05/17 08:59 Multivitamins/ Minerals (Multivitamin W/ Minerals Tab) 1 tab QAM PO 03/06/17 09:00 04/05/17 08:59 Multivitamins/ Minerals (Multivitamin W/ Minerals Tab) 1 tab QAM PO 03/06/17 09:00 04/05/17 08:59 Multivitamins/ Minerals (Multivitamin W/ Minerals Tab) 1 tab QAM PO 03/06/17 09:00 04/05/17 08:59 Saccharomyces Boulardii (Florastor Cap) 250 mg QAM PO 03/06/17 09:00 04/05/17 08:59 Vitamin B Complex/ Vit C/Folic Acid (Nephrocaps) 1 cap QAM PO 03/06/17 09:00 04/05/17 08:59 Calcium/Vitamin D (Caltrate Plus Tab) 1 tab QAM PO 03/06/17 09:00 04/05/17 08:59 Non-Formulary Medication (Polyethylene Glycol-Propylene (Systane)) 2 drops QPM OP 03/05/17 21:00 04/04/17 20:59 UNV Non-Formulary Medication (Potassium Gluconate (K-99)) 1 tab QAM PO 03/06/17 09:00 04/05/17 08:59 UNV Oxycodone/ Acetaminophen (Percocet 5-325mg Tab) `1-2 TABS FOR PAIN `1 TAB... Q4H PRN PO 03/05/17 17:15 03/19/17 17:14 Diphenhydramine HCl (Benadryl Cap) 25 mg Q8 PRN PO 03/05/17 17:15 04/04/17 17:14 Diphenhydramine HCl (Benadryl Inj) 25 mg Q8 PRN IV 03/05/17 17:15 04/04/17 17:14 Zolpidem Tartrate (Ambien Tab) 5 mg HSZ PRN PO 03/05/17 17:15 04/04/17 17:14 Metoclopramide HCl (Reglan Inj) 10 mg Q6H PRN IV 03/05/17 17:15 04/04/17 17:14 UNV Ondansetron HCl (Zofran Inj) 4 mg Q6H PRN IV 03/05/17 17:15 04/04/17 17:14 Ferrous Sulfate (Feosol Tab) 325 mg TIDM PO 03/05/17 18:00 04/04/17 17:59 UNV Al Hydroxide/Mg Hydroxide (Maalox Susp) 30 ml Q6H PRN PO 03/05/17 17:15 04/04/17 17:14 Docusate Sodium (coLACE CAP) 100 mg BID PO 03/05/17 21:00 04/04/17 20:59 UNV Ranitidine HCl (zANTac TAB) 150 mg BID PO 03/05/17 21:00 04/04/17 20:59 UNV Sodium Chloride 1,000 ml @ 80 mls/hr [id number] IV 03/05/17 17:05 04/04/17 17:04 UNV Cefazolin Sodium 2000 mg/Dextrose 60 ml @ 100 mls/hr PREOP IV 03/06/17 06:00 03/06/17 06:35 UNV Morphine Sulfate (MoRPHine SULFATE INJ) 2 mg Q4 PRN IV 03/05/17 17:15 03/19/17 17:14 Review of Systems Constitutional: No fever, No chills, No sweats, No weight loss, No fatigue, No problem reported Cardiovascular: No chest pain, No orthopnea, No PND, No edema, No claudication , No palpitations, No problem reported Musculoskeletal: + joint pain, + muscle pain, + swelling, + calf pain, + problem reported (as noted in the HPI ) Physical Exam Date Time Temp Pulse Resp B/P (MAP) Pulse Ox O2 Delivery O2 Flow Rate FiO2 03/05/17 16:42 76 18 132/72 96 Room Air 03/05/17 15:06 36.9 77 18 173/65 98 Room Air 03/05/17 14:19 75 18 133/58 94 Room Air 03/05/17 12:51 Room Air 03/05/17 12:48 75 03/05/17 12:37 36.8 78 18 174/64 98 Room Air Left Lower Extremity: Reveals a well healed incision from previous total hip arthroplasty. She is externally rotated and has pain with any motion of the lower Extremity. She is in tact to sensation. She has good distal pulses. There is no breaks in the skin, no lacteration, abrasions. General Appearance: WD/WN, no apparent distress Abdomen/GI: non tender, soft Laboratory Results Last 24 Hours Test 03/05/17 12:55 White Blood Count 11.00 K/uL Red Blood Count 4.08 M/uL Hemoglobin 12.2 g/dL Hematocrit 37.4 % Mean Corpuscular Volume 91.7 fL Mean Corpuscular Hemoglobin 29.9 pg Mean Corpuscular Hemoglobin Concent 32.6 g/dl Platelet Count 327 K/uL Mean Platelet Volume 9.3 fL Neutrophils (%) (Auto) 84.9 % Lymphocytes (%) (Auto) 9.1 % Monocytes (%) (Auto) 4.8 % Eosinophils (%) (Auto) 0.5 % Basophils (%) (Auto) 0.5 % Neutrophils # (Auto) 9.35 K/uL Lymphocytes # (Auto) 1.00 K/uL Monocytes # (Auto) 0.53 K/uL Eosinophils # (Auto) 0.05 K/uL Basophils # (Auto) 0.05 K/uL RDW Standard Deviation 48.6 fL RDW Coefficient of Variation 14.5 % Immature Granulocyte % (Auto) 0.2 % Immature Granulocyte # (Auto) 0.02 K/uL Prothrombin Time 9.9 SECONDS Prothromb Time International Ratio 0.9 Activated Partial Thromboplast Time 24.0 SECONDS Partial Thromboplastin Ratio 0.9 Sodium Level 140 mmol/L Potassium Level 4.2 mmol/L Chloride Level 103 mmol/L Carbon Dioxide Level 30 mmol/L Anion Gap 7.0 mmol/L Blood Urea Nitrogen 19 mg/dl Creatinine 0.69 mg/dl Est Creatinine Clear Calc Drug Dose 64.0 ml/min Estimated GFR () 92.6 Estimated GFR (Non- 79.9 BUN/Creatinine Ratio 27.9 Random Glucose 109 mg/dl Calcium Level 8.9 mg/dl Assessment & Plan (1) Periprosthetic fracture around internal prosthetic left hip joint Status: Acute The x-ray finding were discussed with the family and the patient at bedside in the ER. We are going to admit the patient tonight. The plan is to take her to the operating room tomorrow . The risks, benefits and alternatives were discussed with the patient extensively. The surgery would likely be an ORIF of a esdras-prosthetic left hip fracture, possible revision stem. She understands that she will likely be in the hospital for approximately 3 days then likely be discharged to rehab facility.
[2017-03-05] MEDS: SODIUM CHLORIDE 0.9% 1000ML 1,000 ML IV SCH (18:28)
[2017-03-05] MEDS: MoRPHine SULFATE 2 MG/ML CARP IV PRN (18:31)
[2017-03-05] MEDS: OXYCODONE HCL IR 5 MG TAB (IMMEDIATE RELEASE) PO PRN ×2 (20:01→23:54)
[2017-03-05] MEDS: DOCUSATE SODIUM/SENNA 50/8.6MG TAB PO SCH (20:01)
[2017-03-05] MEDS: LEVETIRACETAM 500 MG TAB PO SCH (20:01)
[2017-03-05] MEDS: RANITIDINE HCL 150 MG TAB PO SCH (20:02)
[2017-03-05] MEDS: DOCUSATE SODIUM 100 MG CAP PO SCH (20:02)
[2017-03-05] MEDS: ARTIFICIAL TEARS OP SOLN OP SCH ×2 (20:03)
[2017-03-05] MEDS: ALUMINUM/MAGNESIUM SUSP 30 ML UDC PO PRN (21:13)
[2017-03-05 23:32] VITALS: BP 123/67; PULSE 77; TEMP 37.1; O2SAT 94
[2017-03-06] VITALS (8 sets, daily range): BP systolic 106–137; BP diastolic 54–73; PULSE 57–97; TEMP 36.5–37.1; O2SAT 94–100
[2017-03-06] MEDS: OXYCODONE HCL IR 5 MG TAB (IMMEDIATE RELEASE) PO PRN ×3 (04:22→23:30)
[2017-03-06] MEDS: LEVOTHYROXINE 25 MCG TAB PO SCH (05:30)
[2017-03-06] MEDS: SODIUM CHLORIDE 0.9% 1000ML 1,000 ML IV SCH ×2 (05:31→16:38)
[2017-03-06] MEDS ORDERED: CEFAZOLIN 2000MG IV PUSH 10 ML IV SCH (06:00)
[2017-03-06] MEDS ORDERED: CEFAZOLIN IV 2,000 MG in DEXTROSE 5% 50ML 50 ML IV SCH ×4 (06:00)
[2017-03-06] MEDS: FERROUS SULFATE 325 MG TAB PO SCH ×3 (07:01→18:16)
[2017-03-06] MEDS: NEPHROCAPS PO SCH (07:02)
[2017-03-06] MEDS: MAGNESIUM OXIDE 400 MG TAB PO SCH (07:03)
[2017-03-06] MEDS: CEROVITE ADV FORMULA TAB PO SCH (07:03)
[2017-03-06] MEDS: CHOLECALCIFEROL 1000 INTER.UNIT TAB PO SCH (07:03)
[2017-03-06] MEDS: ASCORBIC ACID 500 MG TAB PO SCH (07:03)
[2017-03-06] MEDS: CALCIUM 600MG + VIT D 400 IU TAB PO SCH (07:03)
[2017-03-06] MEDS: LEVETIRACETAM 250 MG TAB PO SCH (08:08)
[2017-03-06] MEDS: RANITIDINE HCL 150 MG TAB PO SCH ×2 (08:08→20:21)
[2017-03-06] MEDS: SACCHAROMYCES BOUL (FLORASTOR) 250 MG CAP PO SCH (08:09)
[2017-03-06] MEDS: DOCUSATE SODIUM 100 MG CAP PO SCH ×2 (08:09→20:21)
[2017-03-06] MEDS: MoRPHine SULFATE 2 MG/ML CARP IV PRN (08:14)
--- NOTE | 2017-03-06 08:38 | PROGRESS NOTE ---
DATE: 03/06/2017 DATE: 03/06/2017 CHIEF COMPLAINT: Left periprosthetic femur fracture. PROGRESS: Denise was seen and examined at bedside today. She was able to get some sleep last night. She is still having a lot of soreness in her hip. She has no new complaints. PHYSICAL EXAMINATION: LEFT HIP: She has slight shortening of her left leg compared to the right but it is not much. She has no noticeable external rotation. The wound looks okay from the previous surgery 2 weeks ago. LABORATORY DATA: She has an H&H of 12.2 and 37.4. Her glucose is 109. Her vital signs are all stable on room air. X-rays of the left femur show a displaced left periprosthetic femur fracture. IMPRESSION: Left periprosthetic femur fracture. PLAN: We will take him down to the operating room today. My first plan is to do plate and screw fixation; my second plan is to do a diaphyseal fitting stem if the taper fit stem is loose. Postoperatively, she will be back on aspirin for DVT prophylaxis. She will likely be nonweightbearing for 6 weeks afterwards but we will see how the surgery goes.
[2017-03-06] MEDS ORDERED: POTASSIUM GLUCONATE PO SCH (09:00)
[2017-03-06] MEDS ORDERED: CEROVITE ADV FORMULA TAB PO SCH ×2 (09:00)
--- NOTE | 2017-03-06 09:50 | Hospitalist Progress Note ---
Hospitalist Progress Note Date of Service Mar 06, 2017. Subjective Pt evaluation today including: conversation w/ patient, conversation w/ family , physical exam, chart review, lab review, review of studies, review of inpatient medication list Patient seen and evaluated. No acute events overnight. Reporting some discomfort of the L hip but largely controlled. Denies numbness/ tingling of the L leg and able to wiggle her toes. Currently NPO for surgery today. She denies H/O adverse reactions to anesthesia. Denies H/O cardiac issue but does have murmur on exam. No recent illness/infection. Functionally independent - medically optimal for surgery today pending anesthesia's input Last dose of ASA on 03/05 in AM Constitutional: No fever, No chills ENT: No sore throat Respiratory: No cough, No shortness of breath Cardiovascular: No chest pain, No palpitations Abdomen: No pain, No nausea, No vomiting, No diarrhea, No constipation Musculoskeletal: + joint pain (L hip), No calf pain Female : No dysuria Neurologic: + problem reported (denies recent seizure or seizure-like activity with fall; no post-ictal state) Heme: No abnormal bleeding/bruising Skin: No rash Medications Current Inpatient Medications Medications (Trade) Dose Ordered Sig/Albertina Route Start Time Stop Time Status Last Admin Dose Admin Acetaminophen (Tylenol Tab) 650 mg Q6H PRN PO 03/05/17 15:45 04/04/17 15:44 Oxycodone HCl (Roxicodone Immediate Rel Tab) 5 mg Q4H PRN PO 03/05/17 15:45 03/19/17 15:44 Oxycodone HCl (Roxicodone Immediate Rel Tab) 10 mg Q4H PRN PO 03/05/17 15:45 03/19/17 15:44 03/06/17 04:22 10 MG Morphine Sulfate (MoRPHine SULFATE INJ) 2 mg Q2H PRN IV 03/05/17 15:45 03/19/17 15:44 03/06/17 08:14 2 MG Morphine Sulfate (MoRPHine SULFATE INJ) 4 mg Q2H PRN IV 03/05/17 15:45 03/19/17 15:44 Naloxone HCl (Narcan Inj) 0.1 mg PRN PRN IV 03/05/17 15:45 04/04/17 15:44 Senna/Docusate Sodium (Senokot S Tab) 2 tab HS PO 03/05/17 21:00 04/04/17 20:59 03/05/17 20:01 2 TAB Polyethylene (Miralax Powder Packet) 17 gm DAILY PRN PO 03/05/17 15:45 04/04/17 15:44 Magnesium Hydroxide (Milk Of Magnesia Susp) 30 ml DAILY PRN PO 03/05/17 15:45 04/04/17 15:44 Bisacodyl (Dulcolax Supp) 10 mg DAILY PRN MD 03/05/17 15:45 04/04/17 15:44 Sodium Biphosphate/ Sodium Phosphate (Fleet Enema) 132 ml PRN PRN MD 03/05/17 15:45 Ascorbic Acid (Vitamin C Tab) 1,000 mg QAM PO 03/06/17 09:00 04/05/17 08:59 Cholecalciferol (Vitamin D Tab) 2,000 inter.unit QAM PO 03/06/17 09:00 04/05/17 08:59 Levetiracetam (Keppra Tab) 250 mg QAM PO 03/06/17 09:00 04/05/17 08:59 03/06/17 08:08 250 MG Levetiracetam (Keppra Tab) 500 mg QPM PO 03/05/17 21:00 04/04/17 20:59 03/05/17 20:01 500 MG Levothyroxine Sodium (Synthroid Tab) 25 mcg DAILYBB PO 03/06/17 06:00 04/05/17 06:59 03/06/17 05:30 25 MCG Magnesium Oxide (Mag-Ox Tab) 400 mg QAM PO 03/06/17 09:00 04/05/17 08:59 Multivitamins/ Minerals (Multivitamin W/ Minerals Tab) 1 tab QAM PO 03/06/17 09:00 04/05/17 08:59 Multivitamins/ Minerals (Multivitamin W/ Minerals Tab) 1 tab QAM PO 03/06/17 09:00 04/05/17 08:59 Multivitamins/ Minerals (Multivitamin W/ Minerals Tab) 1 tab QAM PO 03/06/17 09:00 04/05/17 08:59 Saccharomyces Boulardii (Florastor Cap) 250 mg QAM PO 03/06/17 09:00 04/05/17 08:59 Vitamin B Complex/ Vit C/Folic Acid (Nephrocaps) 1 cap QAM PO 03/06/17 09:00 04/05/17 08:59 Calcium/Vitamin D (Caltrate Plus Tab) 1 tab QAM PO 03/06/17 09:00 04/05/17 08:59 Artificial Tears (Artificial Tears) 2 drops QPM OP 03/05/17 21:00 04/04/17 20:59 03/05/17 20:03 2 DROPS Oxycodone/ Acetaminophen (Percocet 5-325mg Tab) `1-2 TABS FOR PAIN `1 TAB... Q4H PRN PO 03/05/17 17:15 03/19/17 17:14 Diphenhydramine HCl (Benadryl Cap) 25 mg Q8 PRN PO 03/05/17 17:15 04/04/17 17:14 Diphenhydramine HCl (Benadryl Inj) 25 mg Q8 PRN IV 03/05/17 17:15 04/04/17 17:14 Zolpidem Tartrate (Ambien Tab) 5 mg HSZ PRN PO 03/05/17 17:15 04/04/17 17:14 Metoclopramide HCl (Reglan Inj) 10 mg Q6H PRN IV 03/05/17 17:15 04/04/17 17:14 Ondansetron HCl (Zofran Inj) 4 mg Q6H PRN IV 03/05/17 17:15 04/04/17 17:14 Ferrous Sulfate (Feosol Tab) 325 mg TIDM PO 03/06/17 08:30 04/05/17 08:29 Al Hydroxide/Mg Hydroxide (Maalox Susp) 30 ml Q6H PRN PO 03/05/17 17:15 04/04/17 17:14 03/05/17 21:13 30 ML Docusate Sodium (coLACE CAP) 100 mg BID PO 03/05/17 21:00 04/04/17 20:59 03/05/17 20:02 100 MG Ranitidine HCl (zANTac TAB) 150 mg BID PO 03/05/17 21:00 04/04/17 20:59 03/06/17 08:08 150 MG Sodium Chloride 1,000 ml @ 80 mls/hr [id number] IV 03/05/17 17:45 04/04/17 17:44 03/06/17 05:31 80 MLS/HR Morphine Sulfate (MoRPHine SULFATE INJ) 2 mg Q4 PRN IV 03/05/17 17:15 03/19/17 17:14 Cefazolin Sodium 10 ml @ 2.5 mls/min PREOP IV 03/06/17 06:00 03/06/17 18:00 Objective Vital Signs Date Time Temp Pulse Resp B/P (MAP) Pulse Ox O2 Delivery O2 Flow Rate FiO2 03/06/17 06:47 37.0 78 15 106/62 (77) 94 Room Air 03/05/17 23:32 37.1 77 16 123/67 (85) 94 Room Air 03/05/17 20:00 Room Air 03/05/17 17:30 37.0 80 18 156/72 95 Room Air 03/05/17 17:30 37.0 80 18 156/72 (100) 95 Room Air 03/05/17 16:42 76 18 132/72 96 Room Air 03/05/17 15:06 36.9 77 18 173/65 98 Room Air 03/05/17 14:19 75 18 133/58 94 Room Air 03/05/17 12:51 Room Air 03/05/17 12:48 75 03/05/17 12:37 36.8 78 18 174/64 98 Room Air Physical Exam General Appearance: WD/WN, no apparent distress Eyes: sclerae normal ENT: hearing grossly normal Neck: supple, no JVD, trachea midline Respiratory/Chest: lungs clear, normal breath sounds, no respiratory distress, no accessory muscle use Cardiovascular: regular rate, rhythm, + systolic murmur Abdomen: normal bowel sounds, non tender, soft Extremities: no pedal edema, no calf tenderness, normal capillary refill, + pertinent finding (movement to toes b/l) Neurologic/Psychiatric: alert, oriented x 3 Skin: normal color, warm/dry Laboratory Results Last 24 Hours Test 03/05/17 12:55 White Blood Count 11.00 K/uL Red Blood Count 4.08 M/uL Hemoglobin 12.2 g/dL Hematocrit 37.4 % Mean Corpuscular Volume 91.7 fL Mean Corpuscular Hemoglobin 29.9 pg Mean Corpuscular Hemoglobin Concent 32.6 g/dl Platelet Count 327 K/uL Mean Platelet Volume 9.3 fL Neutrophils (%) (Auto) 84.9 % Lymphocytes (%) (Auto) 9.1 % Monocytes (%) (Auto) 4.8 % Eosinophils (%) (Auto) 0.5 % Basophils (%) (Auto) 0.5 % Neutrophils # (Auto) 9.35 K/uL Lymphocytes # (Auto) 1.00 K/uL Monocytes # (Auto) 0.53 K/uL Eosinophils # (Auto) 0.05 K/uL Basophils # (Auto) 0.05 K/uL RDW Standard Deviation 48.6 fL RDW Coefficient of Variation 14.5 % Immature Granulocyte % (Auto) 0.2 % Immature Granulocyte # (Auto) 0.02 K/uL Prothrombin Time 9.9 SECONDS Prothromb Time International Ratio 0.9 Activated Partial Thromboplast Time 24.0 SECONDS Partial Thromboplastin Ratio 0.9 Sodium Level 140 mmol/L Potassium Level 4.2 mmol/L Chloride Level 103 mmol/L Carbon Dioxide Level 30 mmol/L Anion Gap 7.0 mmol/L Blood Urea Nitrogen 19 mg/dl Creatinine 0.69 mg/dl Est Creatinine Clear Calc Drug Dose 64.0 ml/min Estimated GFR () 92.6 Estimated GFR (Non- 79.9 BUN/Creatinine Ratio 27.9 Random Glucose 109 mg/dl Calcium Level 8.9 mg/dl Assessment and Plan (1) Periprosthetic fracture around internal prosthetic left hip joint Assessment & Plan: - Surgical repair per orthopedics - planned for OR today - Continue with pain management and bowel regimen - ASA 325 mg BID on hold - last dose on 03/05 in AM - Orthopedics following - appreciate recommendations (2) Status post fall Assessment & Plan: - PT/OT evaluations - patient was independent prior to fall - Was utilizing cane due to pain in the L groin and knee - fall was mechanical in nature (3) Breast cancer s/p R lumpectomy Assessment & Plan: - Left limb restriction - Dx 1992 - sp XRT, no chemotherapy (4) Seizure disorder Assessment & Plan: - Follows with Dr. Monk as an outpatient - Continue Keppra 250 mg AM and 500 mg PM (5) Osteopenia Assessment & Plan: - Continue vitamin D supplementation - Boniva 150 mg monthly injection (6) Hypothyroidism Assessment & Plan: - Synthroid 25 mcg daily Pre-Operative Clearance: - Hemodynamically stable; Denies cardiac history; has murmur on exam - No adverse effects from anesthesia on previous surgeries - No recent illness/infection - Functionally independent and can complete ADLs without difficulty; can walk steps/distance without CP/SOB - Patient is optimal for surgical intervention Continued [facility] stay due to: ambulation difficulties Discharge planning: rehab hospital Problem Qualifiers (1) Periprosthetic fracture around internal prosthetic left hip joint: Encounter type: subsequent encounter Qualified Codes: M97.02XD - Periprosthetic fracture around internal prosthetic left hip joint, subsequent encounter
[2017-03-06] MEDS ORDERED: NEOSTIGMINE METHYLSULFATE 5 MG/5 ML SYR ONE (11:14)
[2017-03-06] MEDS ORDERED: GLYCOPYRROLATE INJ 0.2 MG/ML VIAL ONE (11:14)
[2017-03-06] MEDS ORDERED: DEXAMETHASONE SOD INJ 4 MG/ML VIAL ONE (11:14)
[2017-03-06] MEDS ORDERED: PROPOFOL IV EMULSION 10 MG/ML 20 ML VIAL IV ONE (11:14)
[2017-03-06] MEDS ORDERED: LIDOCAINE HCL 2% 2 ML VIAL (20MG/ML) ONE (11:14)
[2017-03-06] MEDS ORDERED: ONDANSETRON INJ 2 MG/ML 2 ML VIAL ONE (11:14)
[2017-03-06] MEDS ORDERED: MIDAZOLAM HCL 1 MG/ML 2ML VIAL ONE (11:14)
[2017-03-06] MEDS ORDERED: FENTANYL CITRATE INJ 50 MCG/1 ML 2 ML VIAL ONE (11:14)
[2017-03-06] MEDS ORDERED: EpHEDrine SULFATE INJ 50 MG/ML AMP IV PRN (11:30)
[2017-03-06] MEDS ORDERED: ONDANSETRON INJ 2 MG/ML 2 ML VIAL IV PRN (11:30)
[2017-03-06] MEDS ORDERED: ATROPINE SULFATE 0.1 MG/ML 5ML SYR IV PRN (11:30)
[2017-03-06] MEDS ORDERED: PHENYLEPHRINE 100MCG/ML 5ML SYR IV PRN (11:30)
[2017-03-06] MEDS ORDERED: BUPIVACAINE/EPINEPHRINE 0.25% 1:200,000 30 ML VIAL ONE (11:34)
[2017-03-06] MEDS ORDERED: BACITRACIN 50000 UNIT VIAL ONE (11:34)
[2017-03-06] MEDS ORDERED: BUPIVACAINE/EPINEPHRINE 0.5% MPF 1:200,000 30 ML VIAL ONE (12:49)
--- NOTE | 2017-03-06 13:25 | EMERGENCY ROOM VISIT NOTE ---
History Report prepared by Salbador: Sonam Jung Under the Supervision of: Dr. Guzman Beltran M.D. First contact with patient: 13:06 Chief Complaint: FALL Stated Complaint: HIP PAIN/GROIN PAIN History of Present Illness The patient is an 86 year old female who presents to the Emergency Room with complaints of persistent hip pain that began when she fell in the shower this morning. The patient was admitted on 02/19/2017 for a total hip replacement, noting she was given Toradol. The patient states that today while she was taking a shower, she slipped and did a partial split, noting she did not hit her head or neck. When she fell she hit her hip and knee on the chair, which she keeps to help in the shower. The patient expresses pain in her left hip and groin area. She notes she took Tylenol around 0800, which did not relieve her symptoms. The patient denies a history of hypertension. She is able to feel and wiggle her toes. Source of History: patient Onset: today Position: other (hip) Symptom Intensity: moderate Quality: other (left hip pain) Timing: other (persistent) Modifying Factors (Relieving): movement Associated Symptoms: No headache, No neck pain Review of Systems See HPI for pertinent positives & negatives. A total of 10 systems reviewed and were otherwise negative. Past Medical & Surgical Medical Problems: (1) Breast cancer s/p R lumpectomy (2) Hypothyroidism (3) Osteoarthritis of hip (4) Osteopenia (5) Seizure disorder Surgical Problems: (1) S/P prosthetic total arthroplasty of the hip Family History Mental disorder Social History Smoking Status: Never Smoker Smokeless Tobacco Use: No Alcohol Use: none Drug Use: none Marital Status: Housing Status: lives with significant other Occupation Status: retired Current/Historical Medications Scheduled Ascorbic Acid (Vitamin C), 1,000 MG PO QAM Aspirin (Aspirin), 325 MG PO BID B-Complex W/ Folic Acid (Super B Complex Maxi), 1 TAB PO QAM Calcium Carbonate-Cholecalcife (Calcium 1000 + D), 1 TAB PO QAM Cholecalciferol (Vitamin D3), 2,000 UNITS PO QAM Cyanocobalamin (Vitamin B-12), 1 TAB PO QAM Ibandronate Sodium (Boniva), 150 MG PO MONTHLY Levetiracetam (Keppra), 250 MG PO QAM Levetiracetam (Keppra), 500 MG PO QPM Levothyroxine Sodium (Levothyroxine Sodium), 25 MCG PO QAM Magnesium Oxide (Mag-Ox), 400 MG PO QAM Multiple Vitamins W/ Minerals (Centrum Silver Ultra Wome), 1 TAB PO QAM Multiple Vitamins W/ Minerals (Ocuvite), 1 TAB PO QAM Multiple Vitamins W/ Minerals (I-Gabo), 1 TAB PO QAM Polyethylene Glycol-Propylene (Systane), 2 DROPS OP QPM Potassium Gluconate (K-99), 1 TAB PO QAM Saccharomyces Boulardii (Probiotic), 1 TAB PO QAM Vitamin B Cmplx/Vitc/Folic Ac (Nephrocaps), 1 CAP PO QAM Scheduled PRN Oxycodone HCl (Oxycodone HCl), 5-10 MG PO Q4H PRN for Pain Allergies Coded Allergies: No Known Allergies (Unverified , 03/05/17) Physical Exam Vital Signs Date Time Temp Pulse Resp B/P (MAP) Pulse Ox O2 Delivery O2 Flow Rate FiO2 03/05/17 15:06 36.9 77 18 173/65 98 Room Air 03/05/17 14:19 75 18 133/58 94 Room Air 03/05/17 12:51 Room Air 03/05/17 12:48 75 03/05/17 12:37 36.8 78 18 174/64 98 Room Air Physical Exam Constitutional: Vital signs reviewed. Eyes: Pupils are equal round reactive to light. Conjunctiva are noninjected. ENT: Pharynx is clear without erythema or exudate. Mucous membranes are moist. Neck supple without meningeal signs. Respiratory: Clear to auscultation bilaterally. Breath sounds are equal bilaterally. Cardiovascular: Regular rate and rhythm. No rubs or gallops. GI: Soft, nondistended and nontender. Bowel sounds are present. Musculoskeletal: Healing incision to left hip, tenderness just below the greater trochanter. No tenderness to the left knee. Integumentary: No cyanosis. Neurological: The patient is awake and alert. No focal deficits. Psychiatric: Normal affect. Medical Decision & Procedures ER Provider Diagnostic Interpretation: Radiology results as stated below per my review and the radiologist's interpretation: CHEST 1 VW FRONT-NOT PORTABLE HISTORY: Fall. LT HIP FX COMPARISON: Chest 10/16/2016. FINDINGS: Small calcifications within the left upper lung zone remain unchanged. This may represent small calcified pleural plaques. Otherwise, the lungs are clear. The heart is normal in size. No pleural effusions. No pneumothorax. IMPRESSION: No significant change compared to the prior study. No acute process. Electronically signed by: Germán Cuevas M.D. 03/05/2017 3:08 PM L FEMUR 2 VIEWS ROUTINE, L KNEE 1 OR 2 VIEWS ROUTINE HISTORY: 86 years-old Female eval for fx acute left leg pain status post fall COMPARISON: Pelvis radiograph of same day TECHNIQUE: 2 views of the left femur and 2 views of the left knee FINDINGS: FEMUR: Acute oblique fracture of the proximal femoral shaft is noted with apex lateral angulation of 16 degrees and 1.9 cm lateral displacement. Left hip arthroplasty. Acetabular component of the hardware appears intact. Moderate soft tissue swelling. KNEE: Left knee arthroplasty without complication. The bones appear moderately demineralized. Small knee joint effusion. IMPRESSION: 1. Acute mildly angulated and displaced periprosthetic fracture of the left proximal femoral shaft with moderate soft tissue swelling. 2. Left knee arthroplasty without location. The above report was generated using voice recognition software. It may contain grammatical, syntax or spelling errors. Electronically signed by: Riki Avila M.D. 03/05/2017 3:08 PM L FEMUR 2 VIEWS ROUTINE, L KNEE 1 OR 2 VIEWS ROUTINE HISTORY: 86 years-old Female eval for fx acute left leg pain status post fall COMPARISON: Pelvis radiograph of same day TECHNIQUE: 2 views of the left femur and 2 views of the left knee FINDINGS: FEMUR: Acute oblique fracture of the proximal femoral shaft is noted with apex lateral angulation of 16 degrees and 1.9 cm lateral displacement. Left hip arthroplasty. Acetabular component of the hardware appears intact. Moderate soft tissue swelling. KNEE: Left knee arthroplasty without complication. The bones appear moderately demineralized. Small knee joint effusion. IMPRESSION: 1. Acute mildly angulated and displaced periprosthetic fracture of the left proximal femoral shaft with moderate soft tissue swelling. 2. Left knee arthroplasty without location. The above report was generated using voice recognition software. It may contain grammatical, syntax or spelling errors. Electronically signed by: Riki Avila M.D. 03/05/2017 3:08 PM PELVIS 1 OR 2 VIEW ROUTINE CLINICAL HISTORY: Left hip pain. Fall. COMPARISON STUDY: None. FINDINGS: Partially visualized fracture within the proximal shaft of the left femur. There are bilateral total hip arthroplasties. No dislocation. The visualized pelvic bones appear intact. No fractures within the sacrum. The bones are osteopenic. IMPRESSION: 1. No fractures identified within the pelvis. 2. Partially visualized periprosthetic fracture within the proximal shaft of the left femur. Electronically signed by: Germán Cuevas M.D. 03/05/2017 3:12 PM Laboratory Results 03/05/17 12:55 Red Blood Count 4.08, Mean Corpuscular Volume 91.7, Mean Corpuscular Hemoglobin 29.9, Mean Corpuscular Hemoglobin Concent 32.6, Mean Platelet Volume 9.3, Neutrophils (%) (Auto) 84.9, Lymphocytes (%) (Auto) 9.1, Monocytes (%) (Auto) 4.8, Eosinophils (%) (Auto) 0.5, Basophils (%) (Auto) 0.5, Neutrophils # (Auto) 9.35, Lymphocytes # (Auto) 1.00, Monocytes # (Auto) 0.53, Eosinophils # (Auto) 0.05, Basophils # (Auto) 0.05 03/05/17 12:55 Test 03/05/17 12:55 White Blood Count 11.00 K/uL (4.8-10.8) Red Blood Count 4.08 M/uL (4.2-5.4) Hemoglobin 12.2 g/dL (12.0-16.0) Hematocrit 37.4 % (37-47) Mean Corpuscular Volume 91.7 fL (80-100) Mean Corpuscular Hemoglobin 29.9 pg (25-34) Mean Corpuscular Hemoglobin Concent 32.6 g/dl (32-36) Platelet Count 327 K/uL (130-400) Mean Platelet Volume 9.3 fL (7.4-10.4) Neutrophils (%) (Auto) 84.9 % Lymphocytes (%) (Auto) 9.1 % Monocytes (%) (Auto) 4.8 % Eosinophils (%) (Auto) 0.5 % Basophils (%) (Auto) 0.5 % Neutrophils # (Auto) 9.35 K/uL (1.4-6.5) Lymphocytes # (Auto) 1.00 K/uL (1.2-3.4) Monocytes # (Auto) 0.53 K/uL (0.11-0.59) Eosinophils # (Auto) 0.05 K/uL (0-0.5) Basophils # (Auto) 0.05 K/uL (0-0.2) RDW Standard Deviation 48.6 fL (36.4-46.3) RDW Coefficient of Variation 14.5 % (11.5-14.5) Immature Granulocyte % (Auto) 0.2 % Immature Granulocyte # (Auto) 0.02 K/uL (0.00-0.02) Prothrombin Time 9.9 SECONDS (9.0-12.0) Prothromb Time International Ratio 0.9 (0.9-1.1) Activated Partial Thromboplast Time 24.0 SECONDS (21.0-31.0) Partial Thromboplastin Ratio 0.9 Anion Gap 7.0 mmol/L (3-11) Est Creatinine Clear Calc Drug Dose 64.0 ml/min Estimated GFR () 92.6 Estimated GFR (Non- 79.9 BUN/Creatinine Ratio 27.9 (10-20) Calcium Level 8.9 mg/dl (8.5-10.1) Medications Administered Medications (Trade) Dose Ordered Sig/Albertina Route Start Time Stop Time Status Last Admin Dose Admin Morphine Sulfate (MoRPHine SULFATE INJ) 4 mg NOW STAT IV 03/05/17 13:56 03/05/17 13:57 DC 03/05/17 14:01 4 MG Ondansetron HCl (Zofran Inj) 4 mg NOW STAT IV 03/05/17 13:56 03/05/17 13:57 DC 03/05/17 14:01 4 MG Morphine Sulfate (MoRPHine SULFATE INJ) 2 mg NOW STAT IV 03/05/17 15:34 03/05/17 15:35 DC 03/05/17 15:46 2 MG Sodium Chloride 1,000 ml @ 80 mls/hr [id number] IV 03/05/17 15:44 03/05/17 21:02 DC 03/05/17 18:30 80 MLS/HR Oxycodone HCl (Roxicodone Immediate Rel Tab) 10 mg Q4H PRN PO 03/05/17 15:45 03/19/17 15:44 03/06/17 04:22 10 MG Morphine Sulfate (MoRPHine SULFATE INJ) 2 mg Q2H PRN IV 03/05/17 15:45 03/19/17 15:44 03/06/17 08:14 2 MG ED Course 1308: The patient was evaluated in room A12. A complete history and physical exam was performed. 1356: Ordered Morphine Sulfate 4mg IV and Zofran Inj IV. 1534: The patient requests more pain medication. Ordered Morphine Sulfate 2mg IV. 1538: I spoke with Dr. Nunes of [facility] [place]. We discussed the patient and test results. The patient will be further evaluated by Dr. Nunes. 1728: Upon reevaluation, the patient appeared to have improvement of her symptoms. I discussed tonight's findings with her. The patient verbalized agreement of the treatment plan. She was discharged home. Medical Decision This is an 86-year-old female who presents with hip pain after fall. Differential diagnosis includes dislocation, fracture of the hip, prosthetic failure, contusion, femur fracture. I did perform a limited focused review of portions of the patient's old chart on the electronic medical record. I did evaluate the patient as noted above. I did treat patient with morphine and Zofran IV. I did order and personally review the patient's x-rays as described above. The patient has a periprosthetic femur fracture. I did order and review the patient's blood work as noted in the electronic medical record. I did discuss the test results with the patient and her son. She was seen by Dr. Nunes of orthopedics. She was admitted to the hospital. I did talk to the hospitalist and classification case manager. Medication Reconcilliation Current Medication List: was personally reviewed by me Blood Pressure Screening Patient's blood pressure: Elevated blood pressure Impression Primary Impression: Periprosthetic fracture around internal prosthetic left hip joint Additional Impression: Fall Scribe Attestation The scribe's documentation has been prepared under my direct and personally reviewed by me in its entirety. I confirm that the note above accurately reflects all work, treatment, procedures, and medical decision making performed by me. Departure Information Dispostion Home / Self-Care Referrals Concetta Frias M.D. (PCP) Forms HOME CARE DOCUMENTATION FORM, IMPORTANT VISIT INFORMATION Patient Instructions My [facility] Problem Qualifiers Primary Impression: Periprosthetic fracture around internal prosthetic left hip joint Encounter type: subsequent encounter Qualified Codes: M97.02XD - Periprosthetic fracture around internal prosthetic left hip joint, subsequent encounter Additional Impression: Fall Encounter type: initial encounter Qualified Codes: W19.XXXA - Unspecified fall, initial encounter
--- NOTE | 2017-03-06 14:39 | DIAGNOSTIC IMAGING REPORT ---
L HIP OR FILMS CLINICAL HISTORY: LT FEMUR FX COMPARISON STUDY: Left femur 03/05/2017. FLUOROSCOPY TIME: 1 minute and 17 seconds. FINDINGS: 3 fluoroscopic spot images of the left femur. There is a left hip prosthesis. There is a cortical plate, screws, and circumflex clot wires transfixing the proximal femoral fracture. The hardware appears intact. The alignment appears near-anatomic. IMPRESSION: Fluoroscopy provided for internal fixation of a proximal left femur fracture. Electronically signed by: Germán Cuevas M.D. 03/06/2017 2:38 PM Dictated Date/Time: 03/06/2017 2:34 PM
--- NOTE | 2017-03-06 14:59 | [facility] Post Operative Brief Note ---
Immediate Operative Summary Operative Date Mar 06, 2017. Pre-Operative Diagnosis Left periprosthetic femur fracture. Post-Operative Diagnosis same as preoperative diagnosis Procedure(s) Performed Open reduction internal fixation of right periprosthetic femur fracture Surgeon Dr. Nunes [employer] Trainer Surgeon(s) Tyler Kwong PA-C Estimated Blood Loss 250ml Findings as above Specimens none Complication(s) None Disposition Recovery Room / PACU
[2017-03-06] MEDS: HYDROmorphone INJ 2 MG/ML SYR/VIAL IV PRN ×2 (15:25→15:30)
--- NOTE | 2017-03-06 15:31 | Anesthesiology Progress Note ---
Anesthesia Post Op Note Date & Time Mar 06, 2017 at 15:31 Vital Signs Pain Intensity: 5.0 Vital Signs Past 12 Hours Date Time Temp Pulse Resp B/P (MAP) Pulse Ox O2 Delivery O2 Flow Rate FiO2 03/06/17 15:25 58 16 157/52 100 Nasal Cannula 2 03/06/17 15:15 61 16 154/55 100 Nasal Cannula 3 03/06/17 15:05 61 16 158/54 100 Oxymask 5 03/06/17 14:58 36.0 75 18 147/53 100 Oxymask 5 03/06/17 07:15 Room Air 03/06/17 06:47 37.0 78 15 106/62 (77) 94 Room Air Notes Mental Status: alert / awake / arousable, participated in evaluation Pt Amnestic to Procedure: Yes Nausea / Vomiting: adequately controlled Pain: adequately controlled Airway Patency, RR, SpO2: stable & adequate BP & HR: stable & adequate Hydration State: stable & adequate Anesthetic Complications: no major complications apparent
--- NOTE | 2017-03-06 16:43 | DIAGNOSTIC IMAGING REPORT ---
L HIP UNILATERAL 2 VIEWS CLINICAL HISTORY: s/p ORIF L femur, please picture with hip in 20 degrees of IR COMPARISON STUDY: Left femur 03/05/2017. FINDINGS: The patient is status post internal fixation of a proximal left femoral shaft fracture with a cortical plate transfixed with screws and cerclage wires. The hardware appears intact. The alignment appears anatomic. The left hip process is in place. Skin joce and surgical drains are noted. IMPRESSION: Status post internal fixation of a proximal left femoral shaft fracture. This demonstrates anatomic alignment. Electronically signed by: Germán Cuevas M.D. 03/06/2017 4:41 PM Dictated Date/Time: 03/06/2017 4:39 PM
[2017-03-06] MEDS: CEFAZOLIN IV 2,000 MG in SYRINGE 0 ML IV SCH (20:21)
[2017-03-06] MEDS: DOCUSATE SODIUM/SENNA 50/8.6MG TAB PO SCH (20:22)
[2017-03-06] MEDS: LEVETIRACETAM 500 MG TAB PO SCH (20:22)
[2017-03-06] MEDS: ARTIFICIAL TEARS OP SOLN OP SCH ×2 (20:47)
--- NOTE | 2017-03-06 22:00 | OPERATIVE REPORT ---
DATE OF OPERATION: 03/06/2017 PREOPERATIVE DIAGNOSIS: Left periprosthetic femur fracture. POSTOPERATIVE DIAGNOSIS: Left periprosthetic femur fracture. PROCEDURE: Open reduction internal fixation of left periprosthetic hip fracture. SURGEON: Luis Nunes DO SHOTBLAST OPERATOR: Ian Kwong PA-C, whose assistance was necessary for positioning the leg and helping with instrumentation. ANESTHESIA: General. COMPLICATIONS: None. CONDITION: Stable to PACU. IMPLANTS USED: I used a Julieta GTR plate with multiple cable fixation. There is a Biomet Taperloc stem and a G7 acetabulum that was implanted 2 weeks prior. INDICATIONS: Denise is a pleasant 86-year-old female who underwent a left total hip arthroplasty 2 weeks ago. She was doing extremely well. She was then getting out of a shower and lifting herself up on bar that was suctioned to the pile. The suction cup broke, she did a split and she fractured her left femur. She came to the Emergency Room. Radiographs showed a spiral periprosthetic femur fracture. The stem appeared to be relatively stable. She consented to undergo an ORIF versus stem revision. OPERATION AND FINDINGS: On 03/06/2017, she was brought down from the hospital room to the preoperative holding area and the operative extremity was identified and signed. She was given a preoperative antibiotic, taken back to the operating room, laid on the table in supine position and put under general anesthesia. The left hip was brought out to a PURIST leg positioner. The left hip was then prepped and draped in sterile fashion. Time-out was done and the patient and operative extremity was properly identified. The previous anterior approach was opened up. The incision was extended then down the lateral aspect of the femur. The previous sutures were removed. The fascia was opened up proximally and released further distally. The stem seemed to be solid. It did pull on the stem at the neck and it seemed to be intact and still had a good press fit. I did internal and external rotation with the PURIST positioner and the stem did not move within the metaphysis. I felt like the stem was stable. I then positioned the leg so that the fracture lined up perfectly. Two cables were then placed. That was done under fluoroscopic guidance. I had good stability of the fracture. A Julieta GTR plate was then hooked on to the greater trochanter. Cables were placed all along the femoral shaft. The cables were then all tightened. Once I was happy with the tightening of the cables, three 6.5 mm screws were placed distally. They all had excellent purchase. The cables were then tensioned once again and tightened and then extra cable was cut. Final fluoroscopic images showed anatomic alignment of the fracture and anatomic alignment of the hip arthroplasty. The entire joint was then irrigated with 3 liters of normal saline solution with bacitracin. The vastus lateralis was tagged back to its origin with a PDS suture. Two drains were placed. Fascia was closed with #1 PDS suture. Skin was closed with 2-0 and joce. She was placed in a soft compressive dressing, extubated, transferred to a [facility] and taken to the postanesthesia care unit in stable condition. She tolerated the procedure well. I attest to the content of the Intraoperative Record and any orders documented therein. Any exceptions are noted below. KATHARINE
[2017-03-07 03:27] VITALS: BP 126/58; PULSE 91; TEMP 37.3; O2SAT 94
[2017-03-07] MEDS: SODIUM CHLORIDE 0.9% 1000ML 1,000 ML IV SCH (04:58)
[2017-03-07] MEDS: CEFAZOLIN IV 2,000 MG in SYRINGE 0 ML IV SCH (04:59)
[2017-03-07] MEDS: OXYCODONE HCL IR 5 MG TAB (IMMEDIATE RELEASE) PO PRN ×2 (05:00→09:00)
[2017-03-07] MEDS: LEVOTHYROXINE 25 MCG TAB PO SCH (05:01)
[2017-03-07 06:53] LABS: BUN/CREATININE RATIO 32.9 (10-20); CALCIUM 7.5 mg/dl (8.5-10.1); CREATININE 0.45 mg/dl (0.60-1.20); POTASSIUM 3.7 mmol/L (3.5-5.1)
[2017-03-07 06:59] VITALS: BP 123/67; PULSE 92; TEMP 37.4; O2SAT 95
[2017-03-07 08:13] LABS: HEMATOCRIT 26.9 % (37-47); MEAN CORPUSCULAR HEMOGLOBIN 30.1 pg (25-34); MEAN CORPUSCULAR HGB CONC 33.5 g/dl (32-36); MEAN PLATELET VOLUME 9.7 fL (7.4-10.4); PLATELET COUNT 259 K/uL (130-400); RED BLOOD COUNT 2.99 M/uL (4.2-5.4); WHITE BLOOD COUNT 12.15 K/uL (4.8-10.8)
[2017-03-07] MEDS: DOCUSATE SODIUM 100 MG CAP PO SCH ×2 (08:44→20:20)
[2017-03-07] MEDS: FERROUS SULFATE 325 MG TAB PO SCH ×3 (08:45→18:31)
[2017-03-07] MEDS: SACCHAROMYCES BOUL (FLORASTOR) 250 MG CAP PO SCH (08:46)
[2017-03-07] MEDS: LEVETIRACETAM 250 MG TAB PO SCH (08:46)
[2017-03-07] MEDS: CALCIUM 600MG + VIT D 400 IU TAB PO SCH (08:46)
[2017-03-07] MEDS: CEROVITE ADV FORMULA TAB PO SCH (08:47)
[2017-03-07] MEDS: MAGNESIUM OXIDE 400 MG TAB PO SCH (08:47)
[2017-03-07] MEDS: CHOLECALCIFEROL 1000 INTER.UNIT TAB PO SCH (08:47)
[2017-03-07] MEDS: RANITIDINE HCL 150 MG TAB PO SCH ×2 (08:47→20:20)
[2017-03-07] MEDS: NEPHROCAPS PO SCH (08:47)
[2017-03-07] MEDS: ASCORBIC ACID 500 MG TAB PO SCH (08:47)
--- NOTE | 2017-03-07 09:48 | PROGRESS NOTE ---
DATE: 03/07/2017 CHIEF COMPLAINT: Status post ORIF of the left proximal femur, postop day #1. PROGRESS: Denise was seen and examined at bedside today. Overall, she is doing fairly well. She has just been lying in bed since surgery. She is nonweightbearing on that leg. Her pain is controlled. She has no other complaints. PHYSICAL EXAMINATION: LEFT HIP: The dressing is clean and dry and the drain is to suction. Her leg lengths are equal. She has active dorsiflexion and plantarflexion of her left ankle. Sensation is intact. LABORATORY DATA: She has an H&H today of 9.0 and 26.9. Her glucose is 116. Her vital signs are all stable on room air. She still has a Robledo catheter in. X-rays postoperatively of the left hip showed the fracture to be in anatomic alignment without any evidence of a hardware complication or hip dislocation. IMPRESSION: Status post open reduction and internal fixation of the left hip periprosthetic femur fracture, postop day #1. PLAN: She is going to be nonweightbearing on that left leg for at least 6 weeks. It will probably be close to 3 months before she is comfortable ambulating with a walker. Unfortunately, these fractures just take a little while to heal and need everything to be healed before be full weightbearing without concerns. We will continue with aspirin 325 mg twice a day for DVT prophylaxis. I know family is going to set up for possible discharge to [facility]. I need to see her in my office about 2 weeks from the day of surgery for staple removal.
[2017-03-07] MEDS: ASPIRIN/ALUM/MAGNES/CAL CARB 325 MG TAB PO SCH ×2 (13:05→20:20)
--- NOTE | 2017-03-07 13:10 | Hospitalist Progress Note ---
Hospitalist Progress Note Date of Service Mar 07, 2017. (Radha Zhu PA-C) Subjective Pt evaluation today including: conversation w/ patient, physical exam, chart review, lab review, review of studies, review of inpatient medication list Patient seen and evaluated. No acute events overnight. Stating she doesn't feel great today reporting pain in the L hip, fatigue due to broken sleep, and decreased appetite Reporting she took pain medication that knocked her out. Requesting Tylenol and Toradol and orders placed Did encourage her to ask for medication when pain starts to increase to prevent severe pain. Tolerating diet but didn't eat much today. Constitutional: + fatigue, No fever, No chills Respiratory: No shortness of breath Cardiovascular: No chest pain Abdomen: No pain, No nausea, No vomiting, No diarrhea, No constipation Musculoskeletal: + joint pain (L hip), + swelling (L knee) Female : No dysuria Heme: No abnormal bleeding/bruising (Radha Zhu PA-C) Medications Current Inpatient Medications Medications (Trade) Dose Ordered Sig/Albertina Route Start Time Stop Time Status Last Admin Dose Admin Oxycodone HCl (Roxicodone Immediate Rel Tab) 5 mg Q4H PRN PO 03/05/17 15:45 03/19/17 15:44 Oxycodone HCl (Roxicodone Immediate Rel Tab) 10 mg Q4H PRN PO 03/05/17 15:45 03/19/17 15:44 03/07/17 09:00 10 MG Morphine Sulfate (MoRPHine SULFATE INJ) 2 mg Q2H PRN IV 03/05/17 15:45 03/19/17 15:44 03/06/17 08:14 2 MG Morphine Sulfate (MoRPHine SULFATE INJ) 4 mg Q2H PRN IV 03/05/17 15:45 03/19/17 15:44 Naloxone HCl (Narcan Inj) 0.1 mg PRN PRN IV 03/05/17 15:45 04/04/17 15:44 Senna/Docusate Sodium (Senokot S Tab) 2 tab HS PO 03/05/17 21:00 04/04/17 20:59 03/06/17 20:22 2 TAB Polyethylene (Miralax Powder Packet) 17 gm DAILY PRN PO 03/05/17 15:45 04/04/17 15:44 Magnesium Hydroxide (Milk Of Magnesia Susp) 30 ml DAILY PRN PO 03/05/17 15:45 04/04/17 15:44 Bisacodyl (Dulcolax Supp) 10 mg DAILY PRN NC 03/05/17 15:45 04/04/17 15:44 Sodium Biphosphate/ Sodium Phosphate (Fleet Enema) 132 ml PRN PRN NC 03/05/17 15:45 Ascorbic Acid (Vitamin C Tab) 1,000 mg QAM PO 03/06/17 09:00 04/05/17 08:59 Cholecalciferol (Vitamin D Tab) 2,000 inter.unit QAM PO 03/06/17 09:00 04/05/17 08:59 03/07/17 08:47 2,000 INTER.UNIT Levetiracetam (Keppra Tab) 250 mg QAM PO 03/06/17 09:00 04/05/17 08:59 03/07/17 08:46 250 MG Levetiracetam (Keppra Tab) 500 mg QPM PO 03/05/17 21:00 04/04/17 20:59 03/06/17 20:22 500 MG Levothyroxine Sodium (Synthroid Tab) 25 mcg DAILYBB PO 03/06/17 06:00 04/05/17 06:59 03/07/17 05:01 25 MCG Magnesium Oxide (Mag-Ox Tab) 400 mg QAM PO 03/06/17 09:00 04/05/17 08:59 Multivitamins/ Minerals (Multivitamin W/ Minerals Tab) 1 tab QAM PO 03/06/17 09:00 04/05/17 08:59 Saccharomyces Boulardii (Florastor Cap) 250 mg QAM PO 03/06/17 09:00 04/05/17 08:59 Vitamin B Complex/ Vit C/Folic Acid (Nephrocaps) 1 cap QAM PO 03/06/17 09:00 04/05/17 08:59 Calcium/Vitamin D (Caltrate Plus Tab) 1 tab QAM PO 03/06/17 09:00 04/05/17 08:59 03/07/17 08:46 1 TAB Artificial Tears (Artificial Tears) 2 drops QPM OP 03/05/17 21:00 04/04/17 20:59 03/06/17 20:47 2 DROPS Oxycodone/ Acetaminophen (Percocet 5-325mg Tab) `1-2 TABS FOR PAIN `1 TAB... Q4H PRN PO 03/05/17 17:15 03/19/17 17:14 Diphenhydramine HCl (Benadryl Cap) 25 mg Q8 PRN PO 03/05/17 17:15 04/04/17 17:14 Diphenhydramine HCl (Benadryl Inj) 25 mg Q8 PRN IV 03/05/17 17:15 04/04/17 17:14 Zolpidem Tartrate (Ambien Tab) 5 mg HSZ PRN PO 03/05/17 17:15 04/04/17 17:14 Metoclopramide HCl (Reglan Inj) 10 mg Q6H PRN IV 03/05/17 17:15 04/04/17 17:14 Ondansetron HCl (Zofran Inj) 4 mg Q6H PRN IV 03/05/17 17:15 04/04/17 17:14 Ferrous Sulfate (Feosol Tab) 325 mg TIDM PO 03/06/17 08:30 04/05/17 08:29 03/07/17 08:45 325 MG Al Hydroxide/Mg Hydroxide (Maalox Susp) 30 ml Q6H PRN PO 03/05/17 17:15 04/04/17 17:14 03/05/17 21:13 30 ML Docusate Sodium (coLACE CAP) 100 mg BID PO 03/05/17 21:00 04/04/17 20:59 03/07/17 08:44 100 MG Ranitidine HCl (zANTac TAB) 150 mg BID PO 03/05/17 21:00 04/04/17 20:59 03/07/17 08:47 150 MG Sodium Chloride 1,000 ml @ 80 mls/hr [id number] IV 03/05/17 17:45 04/04/17 17:44 03/07/17 04:58 80 MLS/HR Morphine Sulfate (MoRPHine SULFATE INJ) 2 mg Q4 PRN IV 03/05/17 17:15 03/19/17 17:14 03/06/17 20:28 2 MG Aspirin/Aluminum/ Magnesium/Ca Carb (Ascriptin Tab) 325 mg BID PO 03/06/17 21:00 04/05/17 20:59 Future hold Ketorolac Tromethamine (Toradol Inj) 15 mg Q6H PRN IV 03/07/17 12:30 03/12/17 12:29 UNV Acetaminophen (Tylenol Tab) 1,000 mg Q6H PRN PO 03/07/17 12:30 04/04/17 15:44 UNV (Radha Zhu PA-C) Objective Vital Signs Date Time Temp Pulse Resp B/P (MAP) Pulse Ox O2 Delivery O2 Flow Rate FiO2 03/07/17 07:50 Room Air 03/07/17 06:59 37.4 92 16 123/67 (85) 95 Room Air 03/07/17 03:27 37.3 91 16 126/58 (80) 94 Room Air 03/06/17 23:40 Room Air 03/06/17 23:27 37.1 97 16 136/73 (94) 94 Room Air 03/06/17 19:28 96 Room Air 03/06/17 19:27 36.6 78 16 113/62 (79) 99 Nasal Cannula 2.0 03/06/17 17:59 36.5 84 18 129/70 (89) 98 Nasal Cannula 2.0 03/06/17 16:57 36.8 73 16 137/60 (85) 100 Nasal Cannula 2.0 03/06/17 16:34 36.7 73 16 133/54 (80) 100 Nasal Cannula 2.0 03/06/17 15:55 36.6 57 16 131/61 (84) 97 Nasal Cannula 2.0 03/06/17 15:55 Nasal Cannula 2.0 03/06/17 15:55 Nasal Cannula 2.0 03/06/17 15:35 36.4 57 16 135/46 100 Nasal Cannula 2 03/06/17 15:25 58 16 157/52 100 Nasal Cannula 2 03/06/17 15:15 61 16 154/55 100 Nasal Cannula 3 03/06/17 15:05 61 16 158/54 100 Oxymask 5 03/06/17 14:58 36.0 75 18 147/53 100 Oxymask 5 (Radha Zhu PA-C) Physical Exam General Appearance: WD/WN, no apparent distress Eyes: sclerae normal ENT: hearing grossly normal Neck: supple, no JVD, trachea midline Respiratory/Chest: lungs clear, normal breath sounds, no respiratory distress, no accessory muscle use Cardiovascular: regular rate, rhythm, + systolic murmur Abdomen: normal bowel sounds, non tender, soft Extremities: + swelling (Swelling of L knee that is non-pitting), + pertinent finding (Drain present with wrap C/D/I) Neurologic/Psychiatric: alert, oriented x 3 Skin: normal color, warm/dry (Radha Zhu PA-C) Laboratory Results Last 24 Hours Test 03/07/17 05:36 White Blood Count 12.15 K/uL Red Blood Count 2.99 M/uL Hemoglobin 9.0 g/dL Hematocrit 26.9 % Mean Corpuscular Volume 90.0 fL Mean Corpuscular Hemoglobin 30.1 pg Mean Corpuscular Hemoglobin Concent 33.5 g/dl RDW Standard Deviation 47.4 fL RDW Coefficient of Variation 14.3 % Platelet Count 259 K/uL Mean Platelet Volume 9.7 fL Sodium Level 135 mmol/L Potassium Level 3.7 mmol/L Chloride Level 102 mmol/L Carbon Dioxide Level 27 mmol/L Anion Gap 6.0 mmol/L Blood Urea Nitrogen 15 mg/dl Creatinine 0.45 mg/dl Est Creatinine Clear Calc Drug Dose 98.1 ml/min Estimated GFR () 106.6 Estimated GFR (Non- 92.0 BUN/Creatinine Ratio 32.9 Random Glucose 116 mg/dl Calcium Level 7.5 mg/dl (Radha Zhu, PAEdenC) Assessment and Plan (1) Periprosthetic fracture around internal prosthetic left hip joint Assessment & Plan: - S/P ORIF of L Periprosthetic Hip Fx - Continue with pain management and bowel regimen -- Prefers Toradol and Tylenol and currently ordered; Percocet PRN - ASA 325 mg BID for DVT Prophylaxis - Hgb at 9 and will continue to monitor - EBL 250 mL - Orthopedics following - appreciate recommendations - plan for F/U in 2 weeks after surgery for staple removal -- Anticipating long recovery with NWB until healed (2) Status post fall Assessment & Plan: - PT/OT evaluations - patient was independent prior to fall - Was utilizing cane due to pain in the L groin and knee - fall was mechanical in nature - Planning on SNF at D/C (3) Breast cancer s/p R lumpectomy Assessment & Plan: - Left limb restriction - Dx 1992 - sp XRT, no chemotherapy (4) Seizure disorder Assessment & Plan: - Follows with Dr. Monk as an outpatient - Continue Keppra 250 mg AM and 500 mg PM (5) Osteopenia Assessment & Plan: - Continue vitamin D supplementation - Boniva 150 mg monthly injection (6) Hypothyroidism Assessment & Plan: - Synthroid 25 mcg daily Continued [facility] stay due to: ambulation difficulties Discharge planning: long-term facility (Radha Zhu PA-C) Reviewed: Pt Seen/Exam by Me (Michaela Clayton MD) History Physician Dining Room Busser Supervision Note: I interviewed and examined the patient. Discussed with MO Zhu and agree with findings and plan as documented in the note. Any exceptions or clarifications are listed here: Patient feels her pain is better after receiving Toradol today. She felt lightheaded with standing couple of times. Denies chest pain or shortness of breath. Vitals reviewed No acute distress, alert awake oriented 3 Regular rate and rhythm, 2/6 holosystolic murmur heard at left sternal border Lungs clear to auscultation bilaterally Extremities: Left thigh completely dressed in bandage and not removed, no leg edema 86-year-old female here with a left periprosthetic femur fracture after a mechanical fall, now POD #1 status post periprosthetic ORIF Acute blood loss anemia-secondary to fracture and some blood loss from surgery as well as probably some hemodilution -Continue to follow hemoglobin, transfuse if hemoglobin less than 7-8 and symptomatic Pain control for hip surgery, bowel regimen, should remain nonweightbearing for at least 6 weeks and follow up with orthopedics in 2 weeks Aspirin 325 twice a day for DVT prophylaxis Documented By: Michaela Clayton (Michaela Clayton MD) Problem Qualifiers (1) Periprosthetic fracture around internal prosthetic left hip joint: Encounter type: subsequent encounter Qualified Codes: M97.02XD - Periprosthetic fracture around internal prosthetic left hip joint, subsequent encounter
[2017-03-07] MEDS: KETOROLAC TROMETHAMINE 15 MG/ML VIAL IV PRN ×2 (13:13→20:26)
[2017-03-07 15:32] VITALS: BP 105/64; PULSE 85; TEMP 36.6; O2SAT 94
[2017-03-07] MEDS: ACETAMINOPHEN 500 MG TAB PO PRN (16:54)
[2017-03-07] MEDS: DOCUSATE SODIUM/SENNA 50/8.6MG TAB PO SCH (20:20)
[2017-03-07] MEDS: LEVETIRACETAM 500 MG TAB PO SCH (20:20)
[2017-03-07] MEDS: ARTIFICIAL TEARS OP SOLN OP SCH ×2 (20:22)
[2017-03-07 23:20] VITALS: BP 106/65; PULSE 83; TEMP 36.8; O2SAT 97
[2017-03-08] MEDS: ALUMINUM/MAGNESIUM SUSP 30 ML UDC PO PRN (02:36)
[2017-03-08] MEDS: LEVOTHYROXINE 25 MCG TAB PO SCH (05:28)
[2017-03-08 07:13] LABS: HEMATOCRIT 24.8 % (37-47); MEAN CELL VOLUME 89.9 fL (80-100); MEAN CORPUSCULAR HEMOGLOBIN 29.7 pg (25-34); MEAN CORPUSCULAR HGB CONC 33.1 g/dl (32-36); MEAN PLATELET VOLUME 9.3 fL (7.4-10.4); PLATELET COUNT 220 K/uL (130-400); RED BLOOD COUNT 2.76 M/uL (4.2-5.4); WHITE BLOOD COUNT 10.78 K/uL (4.8-10.8)
[2017-03-08 07:15] VITALS: BP 105/61; PULSE 88; TEMP 36.9; O2SAT 97
[2017-03-08 07:43] LABS: CREATININE 0.47 mg/dl (0.60-1.20); POTASSIUM 3.9 mmol/L (3.5-5.1)
--- NOTE | 2017-03-08 07:47 | Anesthesiology Progress Note ---
Anesthesia Post Op Note Date & Time Mar 08, 2017 at 07:47 Vital Signs Vital Signs Past 12 Hours Date Time Temp Pulse Resp B/P (MAP) Pulse Ox O2 Delivery O2 Flow Rate FiO2 03/08/17 00:20 Room Air 03/07/17 23:20 36.8 83 16 106/65 (79) 97 Room Air Notes Mental Status: alert / awake / arousable, participated in evaluation Pt Amnestic to Procedure: Yes Nausea / Vomiting: adequately controlled Pain: adequately controlled Airway Patency, RR, SpO2: stable & adequate BP & HR: stable & adequate Hydration State: stable & adequate Anesthetic Complications: no major complications apparent
[2017-03-08 08:17] VITALS: O2SAT 97
[2017-03-08] MEDS: RANITIDINE HCL 150 MG TAB PO SCH ×2 (08:38→21:10)
[2017-03-08] MEDS: NEPHROCAPS PO SCH (08:38)
[2017-03-08] MEDS: CEROVITE ADV FORMULA TAB PO SCH (08:38)
[2017-03-08] MEDS: SACCHAROMYCES BOUL (FLORASTOR) 250 MG CAP PO SCH (08:38)
[2017-03-08] MEDS: DOCUSATE SODIUM 100 MG CAP PO SCH ×2 (08:38→21:11)
[2017-03-08] MEDS: FERROUS SULFATE 325 MG TAB PO SCH ×3 (08:39→17:56)
[2017-03-08] MEDS: ASPIRIN/ALUM/MAGNES/CAL CARB 325 MG TAB PO SCH ×2 (08:39→21:10)
[2017-03-08] MEDS: ASCORBIC ACID 500 MG TAB PO SCH (08:39)
[2017-03-08] MEDS: LEVETIRACETAM 250 MG TAB PO SCH (08:40)
[2017-03-08] MEDS: CHOLECALCIFEROL 1000 INTER.UNIT TAB PO SCH (08:40)
[2017-03-08] MEDS: MAGNESIUM OXIDE 400 MG TAB PO SCH (08:40)
[2017-03-08] MEDS: CALCIUM 600MG + VIT D 400 IU TAB PO SCH (08:40)
[2017-03-08] MEDS: KETOROLAC TROMETHAMINE 15 MG/ML VIAL IV PRN (10:21)
[2017-03-08] MEDS: POLYETHYLENE (MIRALAX) 17 GM PACK PO SCH (12:33)
--- NOTE | 2017-03-08 14:13 | Hospitalist Progress Note ---
Hospitalist Progress Note Date of Service Mar 08, 2017. (Clary Bass ., PA-C) Subjective Pt evaluation today including: conversation w/ patient, conversation w/ family , physical exam, lab review, review of inpatient medication list Voiding: no voiding problems Patient resting in bed. Family at bedside. Eating and drinking OK. No BM since last or Wednesday. +flatus, no abdominal discomfort. Pain is currently 0/10. Has not worked with PT yet today- waiting for rehab acceptance for discharge. Patient denies any fever, chills, sweats, lightheadedness, dizziness, vision changes, CP, palpitations, edema, SOB, wheezing, cough, abdominal pain, nausea, vomiting, diarrhea, urinary symptoms, melena, numbness/tingling, weakness, muscle/joint pain, anxiety/depression, active bleeding, or new skin discoloration/changes. (Clary Bass ., PA-C) Medications Current Inpatient Medications Medications (Trade) Dose Ordered Sig/Albertina Route Start Time Stop Time Status Last Admin Dose Admin Oxycodone HCl (Roxicodone Immediate Rel Tab) 5 mg Q4H PRN PO 03/05/17 15:45 03/19/17 15:44 Oxycodone HCl (Roxicodone Immediate Rel Tab) 10 mg Q4H PRN PO 03/05/17 15:45 03/19/17 15:44 03/07/17 09:00 10 MG Morphine Sulfate (MoRPHine SULFATE INJ) 2 mg Q2H PRN IV 03/05/17 15:45 03/19/17 15:44 03/06/17 08:14 2 MG Morphine Sulfate (MoRPHine SULFATE INJ) 4 mg Q2H PRN IV 03/05/17 15:45 03/19/17 15:44 Naloxone HCl (Narcan Inj) 0.1 mg PRN PRN IV 03/05/17 15:45 04/04/17 15:44 Senna/Docusate Sodium (Senokot S Tab) 2 tab HS PO 03/05/17 21:00 04/04/17 20:59 03/07/17 20:20 2 TAB Magnesium Hydroxide (Milk Of Magnesia Susp) 30 ml DAILY PRN PO 03/05/17 15:45 04/04/17 15:44 Bisacodyl (Dulcolax Supp) 10 mg DAILY PRN PA 03/05/17 15:45 04/04/17 15:44 Sodium Biphosphate/ Sodium Phosphate (Fleet Enema) 132 ml PRN PRN PA 03/05/17 15:45 Ascorbic Acid (Vitamin C Tab) 1,000 mg QAM PO 03/06/17 09:00 04/05/17 08:59 03/08/17 08:39 1,000 MG Cholecalciferol (Vitamin D Tab) 2,000 inter.unit QAM PO 03/06/17 09:00 04/05/17 08:59 03/08/17 08:40 2,000 INTER.UNIT Levetiracetam (Keppra Tab) 250 mg QAM PO 03/06/17 09:00 04/05/17 08:59 03/08/17 08:40 250 MG Levetiracetam (Keppra Tab) 500 mg QPM PO 03/05/17 21:00 04/04/17 20:59 03/07/17 20:20 500 MG Levothyroxine Sodium (Synthroid Tab) 25 mcg DAILYBB PO 03/06/17 06:00 04/05/17 06:59 03/08/17 05:28 25 MCG Magnesium Oxide (Mag-Ox Tab) 400 mg QAM PO 03/06/17 09:00 04/05/17 08:59 03/08/17 08:40 400 MG Multivitamins/ Minerals (Multivitamin W/ Minerals Tab) 1 tab QAM PO 03/06/17 09:00 04/05/17 08:59 03/08/17 08:38 1 TAB Saccharomyces Boulardii (Florastor Cap) 250 mg QAM PO 03/06/17 09:00 04/05/17 08:59 03/08/17 08:38 250 MG Vitamin B Complex/ Vit C/Folic Acid (Nephrocaps) 1 cap QAM PO 03/06/17 09:00 04/05/17 08:59 03/08/17 08:38 1 CAP Calcium/Vitamin D (Caltrate Plus Tab) 1 tab QAM PO 03/06/17 09:00 04/05/17 08:59 03/08/17 08:40 1 TAB Artificial Tears (Artificial Tears) 2 drops QPM OP 03/05/17 21:00 04/04/17 20:59 03/07/17 20:22 2 DROPS Oxycodone/ Acetaminophen (Percocet 5-325mg Tab) `1-2 TABS FOR PAIN `1 TAB... Q4H PRN PO 03/05/17 17:15 03/19/17 17:14 Diphenhydramine HCl (Benadryl Cap) 25 mg Q8 PRN PO 03/05/17 17:15 04/04/17 17:14 Diphenhydramine HCl (Benadryl Inj) 25 mg Q8 PRN IV 03/05/17 17:15 04/04/17 17:14 Zolpidem Tartrate (Ambien Tab) 5 mg HSZ PRN PO 03/05/17 17:15 04/04/17 17:14 Metoclopramide HCl (Reglan Inj) 10 mg Q6H PRN IV 03/05/17 17:15 04/04/17 17:14 Ondansetron HCl (Zofran Inj) 4 mg Q6H PRN IV 03/05/17 17:15 04/04/17 17:14 Ferrous Sulfate (Feosol Tab) 325 mg TIDM PO 03/06/17 08:30 04/05/17 08:29 03/08/17 12:33 325 MG Al Hydroxide/Mg Hydroxide (Maalox Susp) 30 ml Q6H PRN PO 03/05/17 17:15 04/04/17 17:14 03/08/17 02:36 30 ML Docusate Sodium (coLACE CAP) 100 mg BID PO 03/05/17 21:00 04/04/17 20:59 03/08/17 08:38 100 MG Ranitidine HCl (zANTac TAB) 150 mg BID PO 03/05/17 21:00 04/04/17 20:59 03/08/17 08:38 150 MG Morphine Sulfate (MoRPHine SULFATE INJ) 2 mg Q4 PRN IV 03/05/17 17:15 03/19/17 17:14 03/06/17 20:28 2 MG Aspirin/Aluminum/ Magnesium/Ca Carb (Ascriptin Tab) 325 mg BID PO 03/06/17 21:00 04/05/17 20:59 Future hold 03/08/17 08:39 325 MG Ketorolac Tromethamine (Toradol Inj) 15 mg Q6H PRN IV 03/07/17 12:30 03/12/17 12:29 03/08/17 10:21 15 MG Acetaminophen (Tylenol Tab) 1,000 mg Q6H PRN PO 03/07/17 12:30 04/04/17 15:44 03/07/17 16:54 1,000 MG Polyethylene (Miralax Powder Packet) 17 gm DAILY PO 03/08/17 12:15 04/04/17 15:44 03/08/17 12:33 17 GM (Clary Bass PA-C) Objective Vital Signs Date Time Temp Pulse Resp B/P (MAP) Pulse Ox O2 Delivery O2 Flow Rate FiO2 03/08/17 08:17 97 Room Air 03/08/17 07:15 36.9 88 18 105/61 (76) 97 Room Air 03/08/17 00:20 Room Air 03/07/17 23:20 36.8 83 16 106/65 (79) 97 Room Air 03/07/17 15:45 Room Air 03/07/17 15:32 36.6 85 18 105/64 (78) 94 Room Air (Clary Bass PA-C) Physical Exam General Appearance: no apparent distress Eyes: normal inspection, PERRL ENT: hearing grossly normal Neck: supple Respiratory/Chest: lungs clear, no respiratory distress, no accessory muscle use Cardiovascular: regular rate, rhythm, + systolic murmur Abdomen: normal bowel sounds, non tender, soft Extremities: no pedal edema, no calf tenderness, + pertinent finding (L hip incision site C/D/I ) Neurologic/Psychiatric: no motor/sensory deficits, alert, normal mood/affect, oriented x 3 Skin: normal color, warm/dry, no rash (Clary Bass, MO-C) Laboratory Results Last 24 Hours Test 03/08/17 06:39 White Blood Count 10.78 K/uL Red Blood Count 2.76 M/uL Hemoglobin 8.2 g/dL Hematocrit 24.8 % Mean Corpuscular Volume 89.9 fL Mean Corpuscular Hemoglobin 29.7 pg Mean Corpuscular Hemoglobin Concent 33.1 g/dl RDW Standard Deviation 46.9 fL RDW Coefficient of Variation 14.3 % Platelet Count 220 K/uL Mean Platelet Volume 9.3 fL Sodium Level 133 mmol/L Potassium Level 3.9 mmol/L Chloride Level 101 mmol/L Carbon Dioxide Level 27 mmol/L Anion Gap 5.0 mmol/L Blood Urea Nitrogen 19 mg/dl Creatinine 0.47 mg/dl Est Creatinine Clear Calc Drug Dose 93.9 ml/min Estimated GFR () 105.1 Estimated GFR (Non- 90.7 BUN/Creatinine Ratio 40.0 Random Glucose 108 mg/dl Calcium Level 8.0 mg/dl (Clary Bass PA-C) Assessment and Plan This is an 86 y/o F with a PMHx of seizure disorder, breast cancer in 1992 s/p R lumpectomy and multiple lymph node removal, osteopenia and osteoarthritis who is s/p elective R total hip arthroplasty on 12/11/16 and s/p elective L total hip arthropasty on 02/22/[address] Nunes who presented to the ED because of L groin pain/weakness due to a mechanical fall. Periprosthetic fracture around internal prosthetic left hip joint from mechanical fall s/p ORIF of L periprosthetic hip fx by Dr. Nunes on 03/06: - Continue with pain management and bowel regimen -- Prefers Toradol and Tylenol; Percocet PRN -- Changed MiraLAX PRN to daily - Orthopedics following- appreciate recommendations --- Plan for f/u in 2 weeks -- ASA 325 mg BID for DVT prophylaxis Acute blood loss anemia, secondary to fx and surgery: - Continue iron supplement - Follow CBC Breast cancer s/p R lumpectomy: - Left limb restriction - Dx 1992- sp XRT, no chemotherapy Seizure disorder- follows w/ Dr. Monk: Continue Keppra 250 mg AM and 500 mg PM Osteopenia: - Continue vitamin D supplementation - Boniva 150 mg monthly injection Hypothyroidism: Synthroid 25 mcg daily GI prophylaxis: Zantac DVT prophylaxis: ASA 325 mg BID Code Status: LEVEL I, FULL Dispo: Pending rehab- PT/OT and CM consulted (Clary Bass PA-C) Reviewed: Pt Seen/Exam by Me (Michaela Clayton MD) History Physician [employer] Supervision Note: I interviewed and examined the patient. Discussed with MO Bass and agree with findings and plan as documented in the note. Any exceptions or clarifications are listed here: Patient feels much improved today. Got OOB to chair x 1 hour, no more nausea, no more lightheadedness. Pain well controlled with tylenol and one dose toradol today. She is interested in cutting out a lot of the vitamins she no longer needs-was taking them on her own and not at the guidance of a physician. Vitals reviewed No acute distress, alert awake oriented 3 Regular rate and rhythm, 2/6 holosystolic murmur heard at left sternal border Lungs clear to auscultation bilaterally Extremities: Left thigh dressed in bandage and not removed, no leg edema 86-year-old female here with a left periprosthetic femur fracture after a mechanical fall, now POD #2 status post periprosthetic ORIF Acute blood loss anemia-secondary to fracture and some blood loss from surgery as well as probably some hemodilution--> today fairly stable at 8.2 -Continue to follow hemoglobin, transfuse if hemoglobin less than 7-8 and symptomatic Pain control for hip surgery, bowel regimen, should remain nonweightbearing for at least 6 weeks and follow up with orthopedics in 2 weeks Aspirin 325 twice a day for DVT prophylaxis -DC Vit C, all the multivitamins, Nephrocaps. Lower Fe tabs to once daily for nausea, constipation -should continue the calcium and Vit D Dispo-plan for dc to SNF hopefully Wednesday if accepted [facility] Documented By: Michaela Clayton (Michaela Clayton MD)
[2017-03-08] MEDS: ACETAMINOPHEN 500 MG TAB PO PRN ×2 (15:57→22:02)
[2017-03-08 15:59] VITALS: BP 111/62; PULSE 84; TEMP 36.2; O2SAT 96
[2017-03-08] MEDS ORDERED: GUAIFENESIN 600 MG TABCR PO ONE (16:00)
[2017-03-08] MEDS ORDERED: ZNT150 PO (18:39)
[2017-03-08] MEDS ORDERED: CLC100 PO (18:39)
[2017-03-08] MEDS ORDERED: ASPEC325 PO (18:39)
[2017-03-08] MEDS ORDERED: ACET-24 PO (18:39)
[2017-03-08] MEDS ORDERED: FRRS300 PO (18:39)
[2017-03-08] MEDS ORDERED: SENN8.6T7 PO (18:39)
[2017-03-08] MEDS ORDERED: MRLP17X PO (18:39)
--- NOTE | 2017-03-08 18:52 | PROGRESS NOTE ---
DATE: 03/08/2017 CHIEF COMPLAINT: Status post ORIF of the left femur, postop day #2. PROGRESS: Denise was seen and examined at bedside today. Overall, she is doing very well. She was sitting up in a chair today and she worked well with physical therapy. Her pain is controlled. She has no complaints. PHYSICAL EXAMINATION: VITAL SIGNS: Her vital signs are all stable on room air. LEFT HIP: The dressing has been changed and is clean and dry. Her leg lengths are equal. NEUROVASCULAR: She is neurovascularly intact. DATA: She has an H&H today of 8.2 and 24.8. Her glucose is 108. She still has a Robledo catheter in place. IMPRESSION: Status post open reduction internal fixation of the left periprosthetic femur fracture, postop day #2. PLAN: At this point, she is doing well. She will be nonweightbearing for 6 weeks. She is orthopedically stable for discharge. I will see her in my office in 2 weeks to remove the joce. Office phone number is [phone].
[2017-03-08] MEDS: ARTIFICIAL TEARS OP SOLN OP SCH ×2 (21:10)
[2017-03-08] MEDS: GUAIFENESIN 600 MG TABCR PO SCH (21:10)
[2017-03-08] MEDS: DOCUSATE SODIUM/SENNA 50/8.6MG TAB PO SCH (21:11)
[2017-03-08] MEDS: LEVETIRACETAM 500 MG TAB PO SCH (21:11)
[2017-03-08 23:00] VITALS: BP 106/58; PULSE 75; TEMP 36.5; O2SAT 97
[2017-03-09] MEDS: ALUMINUM/MAGNESIUM SUSP 30 ML UDC PO PRN (04:23)
[2017-03-09 04:59] VITALS: BP 110/62; PULSE 62; TEMP 36.5
[2017-03-09] MEDS ORDERED: NURSING VERBAL MED ORDER ONE (06:00)
[2017-03-09] MEDS: CALCIUM CARBONATE 500 MG CHEWABLE PO PRN (06:32)
[2017-03-09] MEDS: LEVOTHYROXINE 25 MCG TAB PO SCH (06:32)
[2017-03-09 07:32] VITALS: BP 111/65; PULSE 76; TEMP 36.5; O2SAT 100
[2017-03-09] MEDS: MAGNESIUM OXIDE 400 MG TAB PO SCH (08:31)
[2017-03-09] MEDS: SACCHAROMYCES BOUL (FLORASTOR) 250 MG CAP PO SCH (08:31)
[2017-03-09] MEDS: DOCUSATE SODIUM 100 MG CAP PO SCH ×2 (08:34→20:01)
[2017-03-09] MEDS: GUAIFENESIN 600 MG TABCR PO SCH ×2 (08:34→20:01)
[2017-03-09] MEDS: ASPIRIN/ALUM/MAGNES/CAL CARB 325 MG TAB PO SCH ×2 (08:34→21:33)
[2017-03-09] MEDS: LEVETIRACETAM 250 MG TAB PO SCH (08:34)
[2017-03-09] MEDS: CHOLECALCIFEROL 1000 INTER.UNIT TAB PO SCH (08:35)
[2017-03-09] MEDS: CALCIUM 600MG + VIT D 400 IU TAB PO SCH (08:35)
[2017-03-09] MEDS: RANITIDINE HCL 150 MG TAB PO SCH ×2 (08:35→20:01)
[2017-03-09] MEDS: FERROUS SULFATE 325 MG TAB PO SCH (08:35)
[2017-03-09] MEDS: POLYETHYLENE (MIRALAX) 17 GM PACK PO SCH (08:42)
[2017-03-09 08:45] LABS: HEMATOCRIT 24.8 % (37-47); MEAN CELL VOLUME 89.2 fL (80-100); MEAN CORPUSCULAR HEMOGLOBIN 29.5 pg (25-34); MEAN CORPUSCULAR HGB CONC 33.1 g/dl (32-36); MEAN PLATELET VOLUME 9.7 fL (7.4-10.4); PLATELET COUNT 241 K/uL (130-400); RED BLOOD COUNT 2.78 M/uL (4.2-5.4)
[2017-03-09 09:09] LABS: BUN/CREATININE RATIO 33.7 (10-20); CALCIUM 8.1 mg/dl (8.5-10.1); CREATININE 0.46 mg/dl (0.60-1.20); POTASSIUM 3.5 mmol/L (3.5-5.1)
--- NOTE | 2017-03-09 13:18 | Hospitalist Progress Note ---
Hospitalist Progress Note Date of Service Mar 09, 2017. Subjective Pt evaluation today including: conversation w/ patient, physical exam, lab review, review of inpatient medication list Voiding: no voiding problems Patient sitting up in bed. Eating and drinking OK. Had large BM this AM. Pain is well controlled. Has not worked with PT today. Placement is pending. Patient denies any fever, chills, sweats, lightheadedness, dizziness, vision changes, CP, palpitations, edema, SOB, wheezing, cough, abdominal pain, nausea, vomiting, diarrhea, urinary symptoms, melena, numbness/tingling, weakness, muscle/joint pain, anxiety/depression, active bleeding, or new skin discoloration/changes. Medications Current Inpatient Medications Medications (Trade) Dose Ordered Sig/Albertina Route Start Time Stop Time Status Last Admin Dose Admin Oxycodone HCl (Roxicodone Immediate Rel Tab) 5 mg Q4H PRN PO 03/05/17 15:45 03/19/17 15:44 Oxycodone HCl (Roxicodone Immediate Rel Tab) 10 mg Q4H PRN PO 03/05/17 15:45 03/19/17 15:44 03/07/17 09:00 10 MG Morphine Sulfate (MoRPHine SULFATE INJ) 2 mg Q2H PRN IV 03/05/17 15:45 03/19/17 15:44 03/06/17 08:14 2 MG Morphine Sulfate (MoRPHine SULFATE INJ) 4 mg Q2H PRN IV 03/05/17 15:45 03/19/17 15:44 Naloxone HCl (Narcan Inj) 0.1 mg PRN PRN IV 03/05/17 15:45 04/04/17 15:44 Senna/Docusate Sodium (Senokot S Tab) 2 tab HS PO 03/05/17 21:00 04/04/17 20:59 03/08/17 21:11 2 TAB Magnesium Hydroxide (Milk Of Magnesia Susp) 30 ml DAILY PRN PO 03/05/17 15:45 04/04/17 15:44 Bisacodyl (Dulcolax Supp) 10 mg DAILY PRN NV 03/05/17 15:45 04/04/17 15:44 Sodium Biphosphate/ Sodium Phosphate (Fleet Enema) 132 ml PRN PRN NV 03/05/17 15:45 Cholecalciferol (Vitamin D Tab) 2,000 inter.unit QAM PO 03/06/17 09:00 04/05/17 08:59 03/09/17 08:35 2,000 INTER.UNIT Levetiracetam (Keppra Tab) 250 mg QAM PO 03/06/17 09:00 04/05/17 08:59 03/09/17 08:34 250 MG Levetiracetam (Keppra Tab) 500 mg QPM PO 03/05/17 21:00 04/04/17 20:59 03/08/17 21:11 500 MG Levothyroxine Sodium (Synthroid Tab) 25 mcg DAILYBB PO 03/06/17 06:00 04/05/17 06:59 03/09/17 06:32 25 MCG Magnesium Oxide (Mag-Ox Tab) 400 mg QAM PO 03/06/17 09:00 04/05/17 08:59 03/08/17 08:40 400 MG Saccharomyces Boulardii (Florastor Cap) 250 mg QAM PO 03/06/17 09:00 04/05/17 08:59 03/08/17 08:38 250 MG Calcium/Vitamin D (Caltrate Plus Tab) 1 tab QAM PO 03/06/17 09:00 04/05/17 08:59 03/09/17 08:35 1 TAB Artificial Tears (Artificial Tears) 2 drops QPM OP 03/05/17 21:00 04/04/17 20:59 03/08/17 21:10 2 DROPS Oxycodone/ Acetaminophen (Percocet 5-325mg Tab) `1-2 TABS FOR PAIN `1 TAB... Q4H PRN PO 03/05/17 17:15 03/19/17 17:14 Diphenhydramine HCl (Benadryl Cap) 25 mg Q8 PRN PO 03/05/17 17:15 04/04/17 17:14 Diphenhydramine HCl (Benadryl Inj) 25 mg Q8 PRN IV 03/05/17 17:15 04/04/17 17:14 Zolpidem Tartrate (Ambien Tab) 5 mg HSZ PRN PO 03/05/17 17:15 04/04/17 17:14 Metoclopramide HCl (Reglan Inj) 10 mg Q6H PRN IV 03/05/17 17:15 04/04/17 17:14 Ondansetron HCl (Zofran Inj) 4 mg Q6H PRN IV 03/05/17 17:15 04/04/17 17:14 Al Hydroxide/Mg Hydroxide (Maalox Susp) 30 ml Q6H PRN PO 03/05/17 17:15 04/04/17 17:14 03/09/17 04:23 30 ML Docusate Sodium (coLACE CAP) 100 mg BID PO 03/05/17 21:00 04/04/17 20:59 03/09/17 08:34 100 MG Ranitidine HCl (zANTac TAB) 150 mg BID PO 03/05/17 21:00 04/04/17 20:59 03/09/17 08:35 150 MG Morphine Sulfate (MoRPHine SULFATE INJ) 2 mg Q4 PRN IV 03/05/17 17:15 03/19/17 17:14 03/06/17 20:28 2 MG Aspirin/Aluminum/ Magnesium/Ca Carb (Ascriptin Tab) 325 mg BID PO 03/06/17 21:00 04/05/17 20:59 Future hold 03/09/17 08:34 325 MG Ketorolac Tromethamine (Toradol Inj) 15 mg Q6H PRN IV 03/07/17 12:30 03/12/17 12:29 03/08/17 10:21 15 MG Acetaminophen (Tylenol Tab) 1,000 mg Q6H PRN PO 03/07/17 12:30 04/04/17 15:44 03/08/17 22:02 1,000 MG Polyethylene (Miralax Powder Packet) 17 gm DAILY PO 03/08/17 12:15 04/04/17 15:44 03/09/17 08:42 17 GM Guaifenesin (Mucinex Contr Rel Tab) 600 mg Q12 PO 03/08/17 21:00 04/07/17 20:59 03/09/17 08:34 600 MG Ferrous Sulfate (Feosol Tab) 325 mg DAILY PO 03/09/17 09:00 04/05/17 08:29 03/09/17 08:35 325 MG Calcium Carbonate (Tums Chew Tab) 500 mg DAILY PRN PO 03/09/17 06:00 04/08/17 05:59 12/19/17 06:32 500 MG Objective Vital Signs Date Time Temp Pulse Resp B/P (MAP) Pulse Ox O2 Delivery O2 Flow Rate FiO2 03/09/17 08:20 Room Air 03/09/17 07:32 36.5 76 17 111/65 (80) 100 Room Air 03/09/17 04:59 36.5 62 16 110/62 (78) Room Air 03/09/17 00:10 Room Air 03/08/17 23:00 36.5 75 16 106/58 (74) 97 Room Air 03/08/17 15:59 36.2 84 17 111/62 (78) 96 Room Air 03/08/17 15:50 Room Air Physical Exam General Appearance: no apparent distress Eyes: normal inspection, PERRL ENT: hearing grossly normal Neck: supple Respiratory/Chest: lungs clear, no respiratory distress, no accessory muscle use Cardiovascular: regular rate, rhythm, + systolic murmur Abdomen: normal bowel sounds, non tender, soft Extremities: no pedal edema, + pertinent finding (SCDs on ) Neurologic/Psychiatric: alert, normal mood/affect, oriented x 3 Skin: normal color, warm/dry, no rash Laboratory Results Last 24 Hours Test 03/09/17 08:23 White Blood Count 8.40 K/uL Red Blood Count 2.78 M/uL Hemoglobin 8.2 g/dL Hematocrit 24.8 % Mean Corpuscular Volume 89.2 fL Mean Corpuscular Hemoglobin 29.5 pg Mean Corpuscular Hemoglobin Concent 33.1 g/dl RDW Standard Deviation 46.3 fL RDW Coefficient of Variation 14.1 % Platelet Count 241 K/uL Mean Platelet Volume 9.7 fL Sodium Level 137 mmol/L Potassium Level 3.5 mmol/L Chloride Level 102 mmol/L Carbon Dioxide Level 29 mmol/L Anion Gap 6.0 mmol/L Blood Urea Nitrogen 16 mg/dl Creatinine 0.46 mg/dl Est Creatinine Clear Calc Drug Dose 95.9 ml/min Estimated GFR () 105.9 Estimated GFR (Non- 91.3 BUN/Creatinine Ratio 33.7 Random Glucose 104 mg/dl Calcium Level 8.1 mg/dl Assessment and Plan This is an 86 y/o F with a PMHx of seizure disorder, breast cancer in 1992 s/p R lumpectomy and multiple lymph node removal, osteopenia and osteoarthritis who is s/p elective R total hip arthroplasty on 12/11/16 and s/p elective L total hip arthropasty on 02/22/[address] Nunes who presented to the ED because of L groin pain/weakness due to a mechanical fall. Periprosthetic fracture around internal prosthetic left hip joint from mechanical fall s/p ORIF of L periprosthetic hip fx by Dr. Nunes on 03/06: - Continue with pain management and bowel regimen -- Prefers Toradol and Tylenol; Percocet PRN -- Changed MiraLAX PRN to daily - Orthopedics following- appreciate recommendations --- Plan for f/u in 2 weeks -- ASA 325 mg BID for DVT prophylaxis Acute blood loss anemia, secondary to fx and surgery- STABLE: - Continue iron supplement - Follow CBC Breast cancer s/p R lumpectomy: - Left limb restriction - Dx 1992- sp XRT, no chemotherapy Seizure disorder- follows w/ Dr. Monk: Continue Keppra 250 mg AM and 500 mg PM Osteopenia: - Continue vitamin D supplementation - Boniva 150 mg monthly injection Hypothyroidism: Synthroid 25 mcg daily GI prophylaxis: Zantac DVT prophylaxis: ASA 325 mg BID Code Status: LEVEL I, FULL Dispo: Patient medically stable for discharge pending rehab placement- PT/OT and CM consulted
[2017-03-09 15:22] VITALS: BP 117/69; PULSE 76; TEMP 36.5; O2SAT 100
[2017-03-09] MEDS: ACETAMINOPHEN 500 MG TAB PO PRN (19:24)
[2017-03-09] MEDS: ARTIFICIAL TEARS OP SOLN OP SCH ×2 (20:01)
[2017-03-09] MEDS: DOCUSATE SODIUM/SENNA 50/8.6MG TAB PO SCH (20:02)
[2017-03-09] MEDS: LEVETIRACETAM 500 MG TAB PO SCH (20:02)
[2017-03-09] MEDS ORDERED: ASPIRIN 325 MG ECTAB PO SCH (21:00)
[2017-03-09 23:00] VITALS: BP 96/55; PULSE 74; TEMP 36.5; O2SAT 98
[2017-03-10] MEDS: CALCIUM CARBONATE 500 MG CHEWABLE PO PRN (01:29)
[2017-03-10] MEDS: LEVOTHYROXINE 25 MCG TAB PO SCH (05:44)
[2017-03-10 07:37] VITALS: BP 112/60; PULSE 73; TEMP 36.6; O2SAT 98
[2017-03-10] MEDS: ALUMINUM/MAGNESIUM SUSP 30 ML UDC PO PRN (07:53)
[2017-03-10] MEDS: SACCHAROMYCES BOUL (FLORASTOR) 250 MG CAP PO SCH (08:35)
[2017-03-10] MEDS: MAGNESIUM OXIDE 400 MG TAB PO SCH (08:35)
[2017-03-10] MEDS: DOCUSATE SODIUM 100 MG CAP PO SCH (08:36)
[2017-03-10] MEDS: ASPIRIN/ALUM/MAGNES/CAL CARB 325 MG TAB PO SCH (08:36)
[2017-03-10] MEDS: GUAIFENESIN 600 MG TABCR PO SCH (08:36)
[2017-03-10] MEDS: LEVETIRACETAM 250 MG TAB PO SCH (08:37)
[2017-03-10] MEDS: CHOLECALCIFEROL 1000 INTER.UNIT TAB PO SCH (08:37)
[2017-03-10] MEDS: FERROUS SULFATE 325 MG TAB PO SCH (08:37)
[2017-03-10] MEDS: RANITIDINE HCL 150 MG TAB PO SCH (08:37)
[2017-03-10] MEDS: CALCIUM 600MG + VIT D 400 IU TAB PO SCH (08:37)
[2017-03-10] MEDS: POLYETHYLENE (MIRALAX) 17 GM PACK PO SCH (08:39)
--- NOTE | 2017-03-10 09:30 | Discharge Instructions ---
Discharge Instructions Date of Service Mar 10, 2017. Admission Reason for Admission: Periprosthetic Fracture, Status Post Fall Discharge Discharge Diagnosis / Problem: Left hip fracture Discharge Goals Goal(s): Decrease discomfort, Improve function, Increase independence, Learn about illness, Diagnostic testing, Therapeutic intervention, Prevent Disease Progression Activity Recommendations Activity Level: Assistance Required Therapies: Physical Therapy, Occupational Therapy Weightbearing Status: Left non-weightbearing . Additional Information Patient informed of condition: Yes Advance Directives: No DNR: No Level of Care: Acute Rehab Communicable Disease: No Prognosis: Improving Robledo Catheter: No Instructions / Follow-Up Instructions / Follow-Up Periprosthetic fracture around internal prosthetic left hip joint from mechanical fall s/p ORIF of L periprosthetic hip fx by Dr. Nunes on 03/06: - Continue with pain management and bowel regimen -- Tylenol 1000 mg q6 hrs PRN for pain management at discharge - Orthopedics following- appreciate recommendations --- Plan for f/u in 2 weeks -- ASA 325 mg BID for DVT prophylaxis Acute blood loss anemia, secondary to fx and surgery- STABLE: - Continue iron supplement - Follow CBC Breast cancer s/p R lumpectomy: - Left limb restriction - Dx 1992- sp XRT, no chemotherapy Seizure disorder- follows w/ Dr. Monk: Continue Keppra 250 mg AM and 500 mg PM Osteopenia: - Continue vitamin D supplementation - Boniva 150 mg monthly injection Hypothyroidism: Synthroid 25 mcg daily GI prophylaxis: Zantac DVT prophylaxis: ASA 325 mg BID Code Status: LEVEL I, FULL Dispo: Discharge to the [facility] FOLLOW-UPS: Follow-up with [facility] provider within 24-48 hours Please follow-up with your PCP within 5-7 days after discharge from the [facility] Please follow-up with Orthopedics within 2 weeks Please follow-up/keep all of your subspecialty appointments Current Hospital Diet Patient's current hospital diet: Regular Diet Discharge Diet Recommended Diet: Regular Diet Procedures Procedures Performed: Open reduction internal fixation of right periprosthetic femur fracture Pending Studies Studies pending at discharge: no Physician Orders On Transfer Special Precautions: Fall precautions Dressing Changes: Routine L hip incision site care IV Therapy: None Vital Signs: Routine POLST Discussion: Not Applicable Medical Emergencies . Who to Call and When: Medical Emergencies: If at any time you feel your situation is an emergency, please call 911 immediately. . Non-Emergent Contact Non-Emergency issues call your: Primary Care Provider . . "Provider Documentation" section prepared by Clary Bass. . Core Measure Problem Core Measures: None
--- NOTE | 2017-03-10 09:31 | Discharge Summary ---
Discharge Summary Date of Service Mar 10, 2017. Discharge Summary Admission Date: Mar 05, 2017 at 15:54 Discharge Date: Mar 10, 2017 Discharge Disposition: Rehab Principal Diagnosis: Left hip fracture Problems/Secondary Diagnoses: Periprosthetic fracture around internal prosthetic left hip joint from mechanical fall s/p ORIF of L periprosthetic hip fx by Dr. Nunes on 03/06 Acute blood loss anemia, secondary to fx and surgery Breast cancer s/p R lumpectomy Seizure disorder Osteopenia Hypothyroidism Procedures: PELVIS 1 OR 2 VIEW ROUTINE CLINICAL HISTORY: Left hip pain. Fall. COMPARISON STUDY: None. FINDINGS: Partially visualized fracture within the proximal shaft of the left femur. There are bilateral total hip arthroplasties. No dislocation. The visualized pelvic bones appear intact. No fractures within the sacrum. The bones are osteopenic. IMPRESSION: 1. No fractures identified within the pelvis. 2. Partially visualized periprosthetic fracture within the proximal shaft of the left femur. Electronically signed by: Germán Cuevas M.D. 03/05/2017 3:12 PM Dictated Date/Time: 03/05/2017 3:08 PM The status of this report is Signed. Draft = Not yet reviewed or approved by Radiologist. Signed = Reviewed and approved by Radiologist L FEMUR 2 VIEWS ROUTINE, L KNEE 1 OR 2 VIEWS ROUTINE HISTORY: 86 years-old Female eval for fx acute left leg pain status post fall COMPARISON: Pelvis radiograph of same day TECHNIQUE: 2 views of the left femur and 2 views of the left knee FINDINGS: FEMUR: Acute oblique fracture of the proximal femoral shaft is noted with apex lateral angulation of 16 degrees and 1.9 cm lateral displacement. Left hip arthroplasty. Acetabular component of the hardware appears intact. Moderate soft tissue swelling. KNEE: Left knee arthroplasty without complication. The bones appear moderately demineralized. Small knee joint effusion. IMPRESSION: 1. Acute mildly angulated and displaced periprosthetic fracture of the left proximal femoral shaft with moderate soft tissue swelling. 2. Left knee arthroplasty without location. The above report was generated using voice recognition software. It may contain grammatical, syntax or spelling errors. Electronically signed by: Riki Avila M.D. 03/05/2017 3:08 PM Dictated Date/Time: 03/05/2017 3:06 PM The status of this report is Signed. Draft = Not yet reviewed or approved by Radiologist. Signed = Reviewed and approved by Radiologist L FEMUR 2 VIEWS ROUTINE, L KNEE 1 OR 2 VIEWS ROUTINE HISTORY: 86 years-old Female eval for fx acute left leg pain status post fall COMPARISON: Pelvis radiograph of same day TECHNIQUE: 2 views of the left femur and 2 views of the left knee FINDINGS: FEMUR: Acute oblique fracture of the proximal femoral shaft is noted with apex lateral angulation of 16 degrees and 1.9 cm lateral displacement. Left hip arthroplasty. Acetabular component of the hardware appears intact. Moderate soft tissue swelling. KNEE: Left knee arthroplasty without complication. The bones appear moderately demineralized. Small knee joint effusion. IMPRESSION: 1. Acute mildly angulated and displaced periprosthetic fracture of the left proximal femoral shaft with moderate soft tissue swelling. 2. Left knee arthroplasty without location. The above report was generated using voice recognition software. It may contain grammatical, syntax or spelling errors. Electronically signed by: Riki Avila M.D. 03/05/2017 3:08 PM Dictated Date/Time: 03/05/2017 3:06 PM The status of this report is Signed. Draft = Not yet reviewed or approved by Radiologist. Signed = Reviewed and approved by Radiologist. CHEST 1 VW FRONT-NOT PORTABLE HISTORY: Fall. LT HIP FX COMPARISON: Chest 10/16/2016. FINDINGS: Small calcifications within the left upper lung zone remain unchanged. This may represent small calcified pleural plaques. Otherwise, the lungs are clear. The heart is normal in size. No pleural effusions. No pneumothorax. IMPRESSION: No significant change compared to the prior study. No acute process. Electronically signed by: Germán Cuevas M.D. 03/05/2017 3:08 PM Dictated Date/Time: 03/05/2017 3:06 PM The status of this report is Signed. Draft = Not yet reviewed or approved by Radiologist. Signed = Reviewed and approved by Radiologist L HIP OR FILMS CLINICAL HISTORY: LT FEMUR FX COMPARISON STUDY: Left femur 03/05/2017. FLUOROSCOPY TIME: 1 minute and 17 seconds. FINDINGS: 3 fluoroscopic spot images of the left femur. There is a left hip prosthesis. There is a cortical plate, screws, and circumflex clot wires transfixing the proximal femoral fracture. The hardware appears intact. The alignment appears near-anatomic. IMPRESSION: Fluoroscopy provided for internal fixation of a proximal left femur fracture. Electronically signed by: Germán Cuevas M.D. 03/06/2017 2:38 PM Dictated Date/Time: 03/06/2017 2:34 PM The status of this report is Signed. Draft = Not yet reviewed or approved by Radiologist. Signed = Reviewed and approved by Radiologist. L HIP UNILATERAL 2 VIEWS CLINICAL HISTORY: s/p ORIF L femur, please picture with hip in 20 degrees of IR COMPARISON STUDY: Left femur 03/05/2017. FINDINGS: The patient is status post internal fixation of a proximal left femoral shaft fracture with a cortical plate transfixed with screws and cerclage wires. The hardware appears intact. The alignment appears anatomic. The left hip process is in place. Skin joce and surgical drains are noted. IMPRESSION: Status post internal fixation of a proximal left femoral shaft fracture. This demonstrates anatomic alignment. Electronically signed by: Germán Cuevas M.D. 03/06/2017 4:41 PM Dictated Date/Time: 03/06/2017 4:39 PM The status of this report is Signed. Draft = Not yet reviewed or approved by Radiologist. Signed = Reviewed and approved by Radiologist. Consultations: Orthopedics- Dr. Nunes Medication Reconciliation New Medications: Acetaminophen (Sb Non-Aspirin Extra Stre) 500 Mg Tab 1000 MG PO Q6H PRN for For mild pain (pain scale 1-3) for 30 Days, #240 TAB Docusate Sodium (Docusate Sodium) 100 Mg Cap 100 MG PO BID for 30 Days, #60 CAP Ferrous Sulfate (Ferrous Sulfate) 325 Mg Tab 325 MG PO DAILY for 30 Days, #30 TAB Polyethylene (Miralax) 17 Gm Pow 17 GM PO DAILY for 30 Days Ranitidine HCl (Ranitidine HCl) 150 Mg Tab 150 MG PO BID for 14 Days, #28 TAB Sennosides-Docusate Sodium (Senokot S) 1 Tab Tab 2 TAB PO HS for 30 Days, TAB Continued Medications: Aspirin (Aspirin) 325 Mg Ectab 325 MG PO BID for 28 Days (This prescription has been renewed) Calcium Carbonate-Cholecalcife (Calcium 1000 + D) 1 Tab Tab 1 TAB PO QAM Cholecalciferol (Vitamin D3) 1,000 Unit Tab 2000 UNITS PO QAM for 30 Days, TAB 5 Refills Ibandronate Sodium (Boniva) 150 Mg Tab 150 MG PO MONTHLY, TAB Levetiracetam (Keppra) 250 Mg Tab 250 MG PO QAM, TAB Levetiracetam (Keppra) 250 Mg Tab 500 MG PO QPM, TAB Levothyroxine Sodium (Levothyroxine Sodium) 25 Mcg Tab 25 MCG PO QAM for 30 Days, TAB 5 Refills Magnesium Oxide (Mag-Ox) 400 Mg Tab 400 MG PO QAM, TAB Polyethylene Glycol-Propylene (Systane) 1 Rani Rani 2 DROPS OP QPM, #30 ML 5 Refills Saccharomyces Boulardii (Probiotic) 250 Mg Cap 1 TAB PO QAM Discontinued Medications: Ascorbic Acid (Vitamin C) 500 Mg Tab 1000 MG PO QAM B-Complex W/ Folic Acid (Super B Complex Maxi) 1 Tab Tab 1 TAB PO QAM Cyanocobalamin (Vitamin B-12) 5,000 Mcg Sub 1 TAB PO QAM Multiple Vitamins W/ Minerals (Centrum Silver Ultra Wome) 1 Tab Tab 1 TAB PO QAM Multiple Vitamins W/ Minerals (Ocuvite) 1 Tab Tab 1 TAB PO QAM Multiple Vitamins W/ Minerals (I-Gabo) 1 Tab Tab 1 TAB PO QAM Oxycodone HCl (Oxycodone HCl) 5 Mg Tab 5-10 MG PO Q4H PRN for Pain, #20 TAB Potassium Gluconate (K-99) 595 Mg Cap 1 TAB PO QAM Vitamin B Cmplx/Vitc/Folic Ac (Nephrocaps) Cap 1 CAP PO QAM for 30 Days, #30 CAP 11 Refills Referrals At Discharge Follow up Referrals: Orthopedics Referral - Within 2 Weeks with Luis Nunes DO Hospital Course Admission H&P: This is an 86 yo F with a PMHx of seizure disorder, breast cancer in 1992 s/p R lumpectomy and multiple lymph node removal, osteopenia and osteoarthritis who is s/p elective R total hip arthroplasty on 12/11/16 and s/p elective L total hip arthropasty on 02/22/[address] Nunes. The patient notes on Wednesday noticed an extreme left groin pain and weakness. She denies any injury to the leg at that point. She took a few tylenol and continue PT as had been ordered. She was evaluated at Dr. Alberts office on Saturday 03/03 and xrays were obtained, but were negative per family report. The joce from her surgery were removed at that point. Today the patient was getting into the shower which has a 4 inch lip around the border, she felt her left leg give out, and tried to catch herself from falling by reaching for a grab bar which was suctioned to the wall. She denies lightheadedness, dizziness, LOC, or injury to the head. She reports taking her regularly medications this morning, including full dose Aspirin. She reports her pain is currently well controlled. No numbness of tingling into the lower leg. Here in the ER imaging reveals a L periprosthetic hip fracture. Will make NPO after midnight Physical Exam Vital Signs Date Time Temp Pulse Resp B/P (MAP) Pulse Ox O2 Delivery O2 Flow Rate FiO2 03/05/17 15:06 36.9 77 18 173/65 98 Room Air 03/05/17 14:19 75 18 133/58 94 Room Air 03/05/17 12:51 Room Air 03/05/17 12:48 75 03/05/17 12:37 36.8 78 18 174/64 98 Room Air General Appearance: WD/WN, no apparent distress Head: normocephalic, atraumatic Eyes: PERRL, EOMI ENT: normal ENT inspection, pharynx normal, + pertinent finding (MM slightly dry) Neck: supple Respiratory/Chest: chest non-tender, lungs clear, no respiratory distress, no accessory muscle use Cardiovascular: regular rate, rhythm, normal peripheral pulses, + systolic murmur Abdomen/GI: normal bowel sounds, non tender, soft Back: normal inspection Extremities/Musculoskelatal: no calf tenderness, no pedal edema, + pertinent finding (LLE shortened, + erythema and warmth over the left thigh, + incision site lateral left thigh appears well healed, no surrounding erythema or purulent drainage, joce removed.) Neurologic/Psych: alert, normal mood/affect, oriented x 3 Skin: normal color, warm/dry Hospital Course: This is an 86 y/o F with a PMHx of seizure disorder, breast cancer in 1992 s/p R lumpectomy and multiple lymph node removal, osteopenia and osteoarthritis who is s/p elective R total hip arthroplasty on 12/11/16 and s/p elective L total hip arthropasty on 02/22/[address] Nunes who presented to the ED because of L groin pain/weakness due to a mechanical fall. Periprosthetic fracture around internal prosthetic left hip joint from mechanical fall s/p ORIF of L periprosthetic hip fx by Dr. Nunes on 03/06: - Continue with pain management and bowel regimen -- Prefers Toradol and Tylenol; Percocet PRN- Tylenol 1000 mg q6 hrs PRN at discharge for pain management -- MiraLAX, Colace, Senokot for bowel regimen - Orthopedics following- appreciate recommendations --- Plan for f/u in 2 weeks -- Non-weightbearing of L leg for at least 6 weeks -- ASA 325 mg BID for DVT prophylaxis Acute blood loss anemia, secondary to fx and surgery- STABLE: - Continue iron supplement - Follow CBC- H&H STABLE Breast cancer s/p R lumpectomy: - Left limb restriction - Dx 1992- sp XRT, no chemotherapy Seizure disorder- follows w/ Dr. Monk: Continue Keppra 250 mg AM and 500 mg PM Osteopenia: - Continue vitamin D supplementation - Boniva 150 mg monthly injection Hypothyroidism: Synthroid 25 mcg daily GI prophylaxis: Zantac DVT prophylaxis: ASA 325 mg BID Code Status: LEVEL I, FULL Dispo: Discharge to the [facility] I agree with PA assessment and plan and have seen and examined pt myself Resting comfortably in bed S/P hip repair Pain controlled VSS Labs reviewed DVT ppx with ASA BID Stable for DC to rehab ([facility]) Total Time Spent: Greater than 30 minutes This includes examination of the patient, discharge planning, medication reconciliation, and communication with other providers. Discharge Instructions Please refer to the electronic Patient Visit Report (Discharge Instructions) for additional information. Follow-Up Follow-up with [facility] provider within 24-48 hours Please follow-up with your PCP within 5-7 days after discharge from the [facility] Please follow-up with Orthopedics within 2 weeks Please follow-up/keep all of your subspecialty appointments Additional Copies To Concetta Frias M.D.; [place]
[2017-03-10] MEDS: ACETAMINOPHEN 500 MG TAB PO PRN (12:36)
[2017-03-10 14:32] VITALS: BP 112/60; PULSE 73; TEMP 36.6; O2SAT 98
== END 2017-03-10 16:06 | DRG 481 ==
LOC: EDBD 12:26 → C.EDA 12:27 → C.MSN 15:54 → ENRESERV 16:11
PROVIDERS: ADMIT Internal Medicine; ATTEND Family Medicine
PROC: 0QS704Z Reposition Left Upper Femur with Internal Fixation Device, Open Approach (ICD-10-PCS; principal; 2017-03-06 10:30)
DX: M97.02XA Periprosthetic fracture around internal prosthetic left hip joint, initial encounter (principal); D62 Acute posthemorrhagic anemia; W18.2XXA Fall in (into) shower or empty bathtub, initial encounter; Y93.E1 Activity, personal bathing and showering; Z96.643 Presence of artificial hip joint, bilateral; G40.909 Epilepsy, unspecified, not intractable, without status epilepticus; M85.80 Other specified disorders of bone density and structure, unspecified site; E03.9 Hypothyroidism, unspecified; Z85.3 Personal history of malignant neoplasm of breast; Z85.72 Personal history of non-Hodgkin lymphomas; Z92.3 Personal history of irradiation; Z79.83 Long term (current) use of bisphosphonates; Z79.899 Other long term (current) drug therapy